=== PATIENT | female | born 1940 | race Caucasian/White ===

== ENCOUNTER 2023-04-14 13:58 | Outpatient (AMB) | payer MEDICARE, SELFPAY ==
--- NOTE | 2023-04-14 14:20 | A.SPINEOV_ITS ---
Intake Intake Visit Reasons: radiculopathy Intake Note: Ms. Bautista is here today c/o low back and leg pain. MRI done @ [facility]. 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 She is a very nice 82-year-old female who underwent an L3-4 decompression and interbody fusion with Dr. Conner in the past, who has had progressive pain in her left buttock going into her left outer calf getting significantly worse over the last 6 months to a year. She has undergone extensive conservative treatment in the form of Tylenol, physical therapy as well as cortisone injection in the left L5 foramen. She did get significant relief from that injection for about 2 weeks and then the symptoms returned. Her symptoms are aggravated with standing and walking a nd better when she sits. The pain is gone 2 point will where it is almost unbearable when she standing and walking it limits her ability to interact with her grandkids etc.. She had an MRI done at [facility] in January of 2023 showing new left L5 foraminal stenosis when compared to previous MRI from 2019. PMH: History of colon cancer with resection of the colon with primary anastomosis, history of skin cancer basal cell on the nose which was resected, she has chronic lymphocytic leukemia with an elevated white count but this is followed by Hematology-Oncology at [facility] and is just checked by serial white blood cell counts. She has never been symptomatic and it was found incidentally. History of lobular carcinoma in Situ with the lumpectomy many years ago. History of hypertension, GERD, depression/anxiety, hypothyroidism Social hx: She does not smoke Medications: Amitriptyline, melatonin, aspirin, stool softener, vitamin D3, probiotic, lisinopril, Protonix, sertraline, hydrochlorothiazide, levothyroxine, B12 injection every other month Allergies: Codeine, sulfa, IV dye, Darvon, Darvocet and hydralazine Physical exam: Strength is normal, patient is able stand on her own out of a chair, reflexes absent bilaterally. Imaging review: [facility] MRI done in January 2023 of the lumbar spine shows advanced degenerative disc disease, she has previous fusion at L3-4 with good decompr ession centrally. 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 This is stable compared to imaging done in 2020. At the L5-S1 level in the left L5 foramen there is worsening out laterally with some compression of the left L5 nerve root. Impression: 82-year-old female with a history of a previous L3-4 interbody fusion done many years ago, who has had a progressive increase in her pain over the last 6 months to a year going down her left leg into her left buttock, left lateral calf when she stands and walks. She underwent conservative treatment and did have an injection in the left L5 foramen which gave her 2 weeks of great pain relief. Her MRI shows new left L5 foraminal stenosis. Dr. Ramos and I discussed the option of a left L5 foraminotomy with the patient. We quoted success rate at 90%. All pertinent risks and benefits of surgery were discussed with the patient. Thank you for allowing us to care for your patient. The total time spent with this visit with this patient was 45 minutes reviewing history, physical exam, lumbar imaging review, and implementation of treatment plan or further diagnostic testing George Ramos MD,PhD [facility] Coding Level of Care Code New Pt Level 4 (89570) Diagnoses Lumbar radiculopathy M54.16
== END 2023-04-14 15:21 | disposition home or self-care (01) ==
PROVIDERS: Referring Provider Physical Medicine & Rehabilitation; Visit Provider Physician Assistant
DX: M54.16 Radiculopathy, lumbar region (principal)
CPT/HCPCS: 99204

== ENCOUNTER → 2023-04-14 13:58 | Outpatient (BNVA) | payer MEDICARE, SELFPAY | PROVIDERS: Visit Provider Physician Assistant | DX: M54.16 Radiculopathy, lumbar region (principal) | CPT/HCPCS: 99202 ==

== ENCOUNTER 2023-05-14 09:59 | Day surgery (SDC) | payer MEDICARE, SELFPAY ==
[2023-05-04 12:26] VITALS: BP 147/75; PULSE 78; RESP 16; O2SAT 96; BMI 28.8
--- NOTE | 2023-05-04 12:53 | P.CONAN_ITS ---
Documented by User: Brianda Jenkins NP 05/18/23 14:34 HPI - Anesthesia Eval Consult details Narrative: 82yo F for L5 Laminectomy Lumbar Decompression (Foraminotomy), 05/14/23 No recent No CP/SOB with >4 mets (very painful) CLL, obs only, no treatment. Yearly f/u with heme-onc, last seen 11/2022 GERD well controlled on ppi PONV. Good effect with scop patch for motion sickness WILBERT. No CPAP Preop labs with elevated K at 5.7. Recent previous from outside facility WNL. Repeat DOS. Reviewed with Dr Jacobo. [facility] Active Problems Active Problems: All Active Problems (Updated 05/04/23 @ 12:15 by Melina Galeano, RN) Lumbar radiculopathy (Acute) Past Medical History Medical History Anemia Arthritis Asthma Basal cell carcinoma Breast cancer CLL (chronic lymphocytic leukemia) Colon cancer Depression with anxiety Difficulty swallowing GERD (gastroesophageal reflux disease) HTN (hypertension) Hypothyroid Post-operative nausea and vomiting Sleep apnea Family History Family history of problems with anesthesia: No Surgical History Surgical History H/O colonoscopy History of back surgery History of back surgery History of breast lump/mass excision History of History of esophagogastroduodenoscopy (EGD) Hx of cataract extraction Hx of colectomy Hx of hysterectomy Hx of partial thyroidectomy Hx of resection of small bowel Hx of resection of small bowel Hx of shoulder surgery History of Problems with Anesthesia: Yes (PONV) Social History Social History Housing Other:: duplex home-side by side-one level w/basement Are you a primary morning caregiver to a significant other at home: No Do you presently have visiting nurse or other home services: No Patient Tobacco Use Status: Former Tobacco user Quit Date: age 50 Tobacco use type: Cigarette Meds Allergies Allergy/AdvReac Type Severity Reaction Status Date / Time codeine Allergy Severe severe Verified 05/14/23 10:49 nausea hydralazine Allergy Severe increased Verified 05/14/23 10:49 BP propoxyphene [From Darvon] Allergy Severe Anaphylaxis Verified 05/14/23 10:49 gabapentin Allergy Intermediate affected Verified 05/14/23 10:49 renal function Sulfa (Sulfonamide AdvReac Intermediate Nausea Verified 05/14/23 10:49 Antibiotics) Iodinated Contrast Media AdvReac Mild metal Verified 05/14/23 10:49 [IV Contrast Dye] taste in mouth Home Medications Medication Instructions Recorded Confirmed Last Taken Type amitriptyline 50 mg tablet 50 mg PO BEDTIME 05/04/23 05/04/23 Unknown History aspirin 81 mg tablet,delayed 81 mg PO DAILY 05/04/23 05/04/23 Unknown History release calcium carbonate 600 mg-vitamin 1 tab PO DAILY 05/04/23 05/04/23 Unknown History D3 5 mcg (200 unit) tablet levothyroxine 25 mcg tablet 25 mcg PO DAILY 05/04/23 05/04/23 Unknown History lisinopril 30 mg tablet 30 mg PO DAILY 05/04/23 05/04/23 Unknown History magnesium oxide 500 mg tablet 500 mg PO DAILY 05/04/23 05/04/23 Unknown History melatonin 10 mg tablet 10 mg PO BEDTIME 05/04/23 05/04/23 Unknown History meloxicam 15 mg tablet 15 mg PO DAILY 05/04/23 05/04/23 Unknown History pantoprazole 40 mg tablet,delayed 40 mg PO DAILY 05/04/23 05/04/23 Unknown History release sertraline 100 mg tablet 50 mg PO QAM 05/04/23 05/04/23 Unknown History Exam Exam Date and Time: May 04, [id number] Height,Weight and Vital Signs: Height 5 ft 4 in Weight 76.204 kg Last Vital Signs Pulse 78 05/04/23 12:26 Resp 16 05/04/23 12:26 BP 147/75 H 05/04/23 12:26 Pulse Ox 96 05/04/23 12:26 O2 Del Method Room Air 05/04/23 12:26 Pertinent Lab Results Pertinent Lab Results: Lab Results 05/04/23 05/04/23 Range/Units 13:14 13:14 WBC 12.6 H (4.8-10.8) X10*3/uL RBC 4.30 (4.20-5.50) X10*6/uL Hgb 12.6 (12.0-16.0) g/dl Hct 40.4 (37.0-47.0) % MCV 94.0 (80.0-98.0) fL MCH 29.3 (27.0-33.0) pg MCHC 31.2 (31.0-35.0) g/dl RDW 12.5 (11.0-16.0) % Plt Count 268 (160-400) X10*3/uL MPV 10.1 (9.4-12.3) fL Absolute Nucleated RBC 0.000 (0.0-0.012) X10*3/uL Nucleated RBC % (auto) 0.0 (0.0-0.2) /100WBC Sodium 141 (135-145) mmol/L Potassium 5.7 H (3.3-5.1) mmol/L Chloride 107 (96-108) mmol/L Carbon Dioxide 26 (22-29) mmol/L Anion Gap 14 (12-20) BUN 29 H (9-16) mg/dL Creatinine 1.33 (0.5-1.4) mg/dL Estim Creat Clear Calc 32.0 Estimated GFR 38 Random Glucose 88 (60-115) mg/dL Calcium 9.2 (8.4-10.2) mg/dL Narrative Narrative: EKG 09/2022 NSR @ 09/2022 LAD Abn EKG No significant change from 09/2019 ECHO 2019 LV size is nml LV wall thickness is mildly increased LV systolic function is vigorous LVEF is 65-70% No RWMA Nml diastolic function RV nml in size and function PASP wnl Biatrial size is nml No hemodynamically significant valve disease Unchanged from 2008 Exercise stress 2019 WNL Airway Mallampati Class: II TM Dist: >3cm Neck ROM: Full Denture: Upper Loose/Missing/Broken Teeth: Yes (bottom molars pulled) Heart: RRR Lungs: CTAB Assessment and Plan Assessment Anesthesia Assessment: Anesthesia Plan Discussed and PAT Visit Final Anesthetic Review Family History of Problems with Anesthesia: No History of Problems with Anesthesia: Yes (PONV) Documented by User: Chase Arnold MD 05/20/23 13:04 [facility] Past Medical History Medical History Anemia Arthritis Asthma Basal cell carcinoma Breast cancer CLL (chronic lymphocytic leukemia) Colon cancer Depression with anxiety Difficulty swallowing GERD (gastroesophageal reflux disease) HTN (hypertension) Hypothyroid Post-operative nausea and vomiting Sleep apnea Surgical History Surgical History H/O colonoscopy History of back surgery History of back surgery History of breast lump/mass excision History of History of esophagogastroduodenoscopy (EGD) Hx of cataract extraction Hx of colectomy Hx of hysterectomy Hx of partial thyroidectomy Hx of resection of small bowel Hx of resection of small bowel Hx of shoulder surgery Social History Social History Housing Other:: duplex home-side by side-one level w/basement Are you a primary morning caregiver to a significant other at home: No Do you presently have visiting nurse or other home services: No Patient Tobacco Use Status: Former Tobacco user Quit Date: age 50 Tobacco use type: Cigarette Meds Allergies Allergy/AdvReac Type Severity Reaction Status Date / Time codeine Allergy Severe severe Verified 05/14/23 10:49 nausea hydralazine Allergy Severe increased Verified 05/14/23 10:49 BP propoxyphene [From Darvon] Allergy Severe Anaphylaxis Verified 05/14/23 10:49 gabapentin Allergy Intermediate affected Verified 05/14/23 10:49 renal function Sulfa (Sulfonamide AdvReac Intermediate Nausea Verified 05/14/23 10:49 Antibiotics) Iodinated Contrast Media AdvReac Mild metal Verified 05/14/23 10:49 [IV Contrast Dye] taste in mouth Home Medications Medication Instructions Recorded Confirmed Last Taken Type amitriptyline 50 mg tablet 50 mg PO BEDTIME 05/04/23 05/04/23 Unknown History aspirin 81 mg tablet,delayed 81 mg PO DAILY 05/04/23 05/04/23 Unknown History release calcium carbonate 600 mg-vitamin 1 tab PO DAILY 05/04/23 05/04/23 Unknown History D3 5 mcg (200 unit) tablet levothyroxine 25 mcg tablet 25 mcg PO DAILY 05/04/23 05/04/23 Unknown History lisinopril 30 mg tablet 30 mg PO DAILY 05/04/23 05/04/23 Unknown History magnesium oxide 500 mg tablet 500 mg PO DAILY 05/04/23 05/04/23 Unknown History melatonin 10 mg tablet 10 mg PO BEDTIME 05/04/23 05/04/23 Unknown History meloxicam 15 mg tablet 15 mg PO DAILY 05/04/23 05/04/23 Unknown History pantoprazole 40 mg tablet,delayed 40 mg PO DAILY 05/04/23 05/04/23 Unknown History release sertraline 100 mg tablet 50 mg PO QAM 05/04/23 05/04/23 Unknown History Assessment and Plan Final Anesthetic Review NPO: Yes ASA Class: III Final Preanesthetic Review: No Changes in Pt Med Stat, Meds/Allgs Chart Reviewed, Consent Obtained/Reviewed and Anes Risks/Benef Reviewed Patient Risk: Intermediate Procedure Risk: Intermediate Anesthetic Plan Anesthetic Plan: GA Disposition: Standard PACU
[2023-05-04 14:21] LABS: Hematocrit 40.4 % (37.0-47.0); Hemoglobin 12.6 g/dl (12.0-16.0); Mean Corpuscular HGB Conc 31.2 g/dl (31.0-35.0); Mean Corpuscular Hemoglobin 29.3 pg (27.0-33.0); Mean Platelet Volume 10.1 fL (9.4-12.3); Platelet Count 268 X10*3/uL (160-400); Red Cell Distribution Width 12.5 % (11.0-16.0); White Blood Count 12.6 X10*3/uL (4.8-10.8)
[2023-05-05 02:36] LABS: Anion Gap 14 (12-20); Blood Urea Nitrogen 29 mg/dL (9-16); Calcium 9.2 mg/dL (8.4-10.2); Carbon Dioxide 26 mmol/L (22-29); Chloride 107 mmol/L (96-108); Estimated Glomerular Filt Rate 38; Glucose Random 88 mg/dL (60-115); Potassium 5.7 mmol/L (3.3-5.1); Sodium 141 mmol/L (135-145)
[2023-05-14] VITALS (7 sets, daily range): BP systolic 156–178; BP diastolic 52–65; PULSE 75–95; RESP 12–18; TEMP 36.3–36.4; O2SAT 3–98
--- NOTE | ~2023-05-14 | FL_ITS ---
EXAMINATION: XR FLUOROSCOPY WITH IMAGES CLINICAL INFORMATION: L5 laminectomy decompression left COMPARISON: None available. TECHNIQUE: SHA: 0.0 MINUTES TOTAL: 2.43 MGY DAP: 0.578 GYCM2 IMAGES: 1 DR. ODONNELL / ANTWON FINDINGS: Single lateral interoperative image demonstrates posterior surgical marker placement projecting over the posterior elements at L5. There is posterior fusion hardware at L3-L4 FL/FL guidance in OR IMPRESSION: Fluoroscopy guidance lumbar spine surgery.
--- NOTE | 2023-05-14 07:07 | MHC.SHP ---
Pre-Procedural Eval Section A Date of Service: 05/14/23 The patient is an INPATIENT: No Changes since office visit: No Cold of Flu in the past 2 weeks, No New Medical Problems, No Changes in Medication and No Patient answered all questions The History & Physical has been completed within 30 days and I have reviewed it.: No Section B Chief Complaint: Radiculopathy, lumbar region Allergies: Allergies Allergy/AdvReac Type Severity Reaction Status Date / Time codeine Allergy Severe severe Verified 05/04/23 12:20 nausea hydralazine Allergy Severe increased Verified 05/04/23 12:20 BP propoxyphene [From Darvon] Allergy Severe Anaphylaxis Verified 05/04/23 12:20 gabapentin Allergy Intermediate affected Verified 05/04/23 12:20 renal function Sulfa (Sulfonamide AdvReac Intermediate Nausea Verified 05/04/23 12:20 Antibiotics) Iodinated Contrast Media AdvReac Mild metal Verified 05/04/23 12:20 [IV Contrast Dye] taste in mouth Review of Systems Sugical H&P ROS: Negative: Constitution, Cardiovascular, Respiratory, Neurological, Psychiatric, Hem-Onc, Allergic/Immunologic, Gastrointestinal, Genitourinary, Musculoskeletal, Integumentary, Endocrine and Eyes/Ears/Nose/Throat Exam Surgical H&P Exam: Not Evaluated: HEENT, Not Evaluated: Heart, Not Evaluated: Lungs, Not Evaluated: Extremities, Not Evaluated: Abdomen, Not Evaluated: Skin and Not Evaluated: Neurological Plan Diagnosis/Plan: Unchanged I have reviewed the history and physical and performed a pertinent physical examination on my patient. No changes have occurred unless specified. left L5 foraminotomy Time Spent With Patient Time: Total time managing care of this patient today _10___ minutes.
--- NOTE | 2023-05-14 10:21 | PC.NURSE ---
dr. wagoner aware that gabapentin 300 mg po preop was not ordered for this patient. okay to proceed without it per doctor.
[2023-05-14] MEDS: Lactated Ringers 1,000 ML 100 ML IVCONT (10:42)
--- NOTE | 2023-05-14 10:50 | PC.NURSE ---
gabapentin not ordered due to affecting renal function in past.
[2023-05-14 11:05] LABS: Anion Gap 16 (12-20); Carbon Dioxide 25 mmol/L (22-29); Chloride 105 mmol/L (96-108); Sodium 141 mmol/L (135-145)
[2023-05-14] MEDS: Scopolamine 1.5 MG PATCH.TD.3 TRANSDERMA (11:09)
[2023-05-14] MEDS: methocarbamoL 750 MG TABLET PO (11:09)
--- NOTE | 2023-05-14 11:33 | PC.NURSE ---
dr. wagoner aware that patient has a schatzki's ring and takes her pills with apple sauce. patient stated that she would not be able to swallow robaxin. dr. wagoner okay with it. Mar from pharmacy came to [facility] to pick it up due to [facility] not opening for the return.
--- NOTE | 2023-05-14 12:47 | PM.DS ---
DS: Providers Provider Date of Service: 05/14/23 Date of discharge: 05/14/23 Primary care physician: Leigh Alfred NP Admitting clinician: Macario Ramos DS: Diagnosis Discharge Diagnosis (1) Lumbar radiculopathy: Status: Acute DS: Summary Time Spent with Patient Time attestation: Total time managing care of this patient today ____ minutes. Discharge coordination time: Less than 30 minutes Quality: Safe Use of Opioids Does Pt have an Active Cancer Diagnosis on the Problem List?: No Quality: Stroke Does the patient have a stroke diagnosis?: No Physical Exam Vital Signs: Vital Signs: Last Vital Signs Temp 97.6 F 05/14/23 10:49 Pulse 75 05/14/23 10:49 Resp 18 05/14/23 10:49 BP 158/65 H 05/14/23 10:49 Pulse Ox 96 05/14/23 10:49 O2 Del Method Room Air 05/14/23 10:49 BMI result Body Mass Index 28.8 DS: Data Data Completed and Pending Labs on day of discharge: Laboratory Results - last 24 hr 05/14/23 10:18 Sodium 141 Potassium 5.0 Chloride 105 Carbon Dioxide 25 Anion Gap 16 Discharge Plan Discharge Patient Disposition: Home, Self-Care Referrals: Leigh Alfred NP [Primary Care Provider] - 1 Week Discharge Medications: No Action tramadol 50 mg tablet 50 mg PO Q6H PRN (Reason: moderate-severe pain) Qty: 30 0RF meloxicam 15 mg tablet 15 mg PO DAILY sertraline 100 mg tablet 50 mg PO QAM calcium carbonate-vitamin D3 [Calcium + D] 600 mg-5 mcg (200 unit) Tablet 1 tab PO DAILY aspirin [Aspirin Low-Strength] 81 mg Tablet,Delayed Release (Dr/Ec) 81 mg PO DAILY amitriptyline 50 mg tablet 50 mg PO BEDTIME levothyroxine 25 mcg tablet 25 mcg PO DAILY pantoprazole 40 mg tablet,delayed release (DR/EC) 40 mg PO DAILY magnesium oxide 500 mg Tablet 500 mg PO DAILY lisinopril 30 mg tablet 30 mg PO DAILY melatonin 10 mg Tablet 10 mg PO BEDTIME methylprednisolone 4 mg tablets,dose pack 4 mg PO DAILY Qty: 21 0RF Rx Instructions: take as directed on package lorazepam [Ativan] 0.5 mg tablet 0.5 mg PO ONCE PRN (Reason: anxiety) Qty: 2 0RF Rx Instructions: take one pill 30 prior to mri and second pill upon getting into mri Discharge Orders: Discharge Order (Routine); Ordered 05/14/23 Ordered By: George Javier Diet: Advance to usual diet Activity on Discharge: As tolerated Activity Restrictions/Additional Instructions: After your spinal surgery we ask you to observe the following restrictions/guidelines: Activity: It is normal to feel some discomfort as you increase your activity, but that will improve with time. We ask you avoid heavy lifting or acitivities that cause pain. As a general rule, 8lbs is a safe limit for lifting right after surgery. Walk as much as you feel comfortable but not to exhaustion. You will feel extra tired the first few days after surgery. Stay well hydrated. It is OK to walk up and down stairs You may return to driving when you are off narcotics (such as vicodin, oxycodone, dilaudid, etc), and you are back to normal functional capacity. If you have any concerns please check with office before driving. Return to work is specific to each patient and each surgery, so please speak with your doctor/PA at first follow up. Please bring paperwork such as FMLA at that time if you need it filled out. Medications: For optimum pain control, it is best to start with a combination of 500 mg of Tylenol every 4 hours with 600 mg of Motrin every 8 hours, and use narcotics as needed in between for breakthrough pain. We will give you a short supply of narcotics after surgery (usually one weeks worth). If you need more please call the office but do not use more than prescribed. You will need to give our office 48 hours notice if you need narcotics refilled and we do not fill narcotics on weekends or evenings. If you are on a narcotic, it is a good idea to take a stool softener such as colace or senna to avoid constipation If you take blood thinner such as aspirin, Plavix, Coumadin, Effient, Eliquis etc for conditions such as Afib, DVT, Pulmonary embolus, coronary disease, stents etc please speak with your surgeon about specific details as to when you can resume these medications. You can resume NSAIDs on post op day 1 (eg: Motrin, Naproxen, etc). Follow up: Please call the office, , after surgery to arrange a 3 week follow up for wound check. Wound Care: You may remove your dressing on the first day after surgery. You may leave open to air. Please do not remove the steri strips underneath. they will fall off on their own in one week. IT IS NORMAL FOR THE WOUND TO OOZE OR BE BLOODY FOR A FEW DAYS AFTER SURGERY. IF THIS HAPPENS JUST PLACE NEW DRESSING OVER IT TO AVOID STAINING CLOTHES. You may shower on post op day # 1 We ask that you do not let the water soak the wound. If it does get wet, just towel dry lightly. Please do not scrub your incision or place any type of chemical/ointment on the wound. No tub baths, pools or jacuzzis for one month. If you have any leaking or redness from your wound, or fevers, please call office Discharge Date/Time: 05/14/23 14:20
--- NOTE | 2023-05-14 12:49 | P.OP_ITS ---
Operative Note Operative Note Date of Service: 05/14/23 Narrative: Preoperative Diagnosis: Spinal stenosis/lateral recess stenosis/neural foraminal stenosis Operation: Left L5 Laminotomy, Partial facetectomy and foraminotomy with use of microscope Consent Informed Consent was obtained for this operation. I have explained the nature, purpose and benefits of the operation. I have discussed the risks and benefit of the operation including possible complications or adverse events with patient/family. Alternative(s) were discussed with the patient with their relative benefits and risks as well as the consequences of not accepting the operation were included in obtaining consent. Surgeon: KIRILL ODONNELL MD, PHD Procedure Assisted By: George SANCHEZ Description of Procedure This patient is suffering from a left L5 radiculopathy responding to an epidural steroid injection. The patient was offered a decompression of the L5 nerve root. The procedure complications were explained. The patient was consented. The patient was brought to the operating room and endotracheally intubated. The patient was turned in prone position on the Tejas frame. Prep and drape was done followed by timeout. Physician assistant professor of radiology provided access. A mid lumbar incision was made followed by release of the paravertebral muscle on the left side to expose the L5 lamina and facet joint. An intraoperative x-ray was obtained to confirm the correct level. The microscope was brought in. I took over the procedure. The high-speed drill was used to do a L5 laminotomy. #2 Kerrison was used to further remove the lamina towards the L5 foramen. With a nerve hook the medial wall of the L5 pedicle was palpated as well as the beginning of the L5 foramen. The facet joint was partially drilled down after which with a #2 Kerrison a foraminotomy was done. Finally a foraminotomy Kerrison was used to complete the foraminotomy. A long the nerve root could be easily passed, a sign of relief of the neuroforaminal stenosis and decompression of the nerve root . The microscope was removed. Hemostasis was done. Incision was closed in 2 layers. Steri-Strips were used to approximate incision. An OpSite with Tegaderm was used to cover the incision. All sponge needle counts were correct. Patient was extubated and transported in stable is to recovery room. Anesthesia: General Estimated Blood Loss (ml): Minimal Duration of Surgery: Under 60 Minutes Postoperative Plan: Discharge to home
[2023-05-14] MEDS: ondansetron HCL 4 MG/2 ML VIAL IVPUSH (13:31)
== END 2023-05-14 14:20 | disposition home or self-care (01) ==
PROVIDERS: Nurse Practitioner; PCP Nurse Practitioner Gerontology; Visit Provider Neurological Surgery
PROC: (CPT 63047; principal; 2023-05-14 12:30)
DX: M54.16 Radiculopathy, lumbar region (principal); M48.061 Spinal stenosis, lumbar region without neurogenic claudication; I10 Essential (primary) hypertension; C91.10 Chronic lymphocytic leukemia of B-cell type not having achieved remission; G47.33 Obstructive sleep apnea (adult) (pediatric); K21.9 Gastro-esophageal reflux disease without esophagitis; D64.9 Anemia, unspecified; J45.909 Unspecified asthma, uncomplicated; F41.8 Other specified anxiety disorders; Z91.89 Other specified personal risk factors, not elsewhere classified; Z85.3 Personal history of malignant neoplasm of breast; Z85.038 Personal history of other malignant neoplasm of large intestine; Z90.49 Acquired absence of other specified parts of digestive tract; Z88.2 Allergy status to sulfonamides; Z88.5 Allergy status to narcotic agent; Z88.8 Allergy status to other drugs, medicaments and biological substances; Z91.041 Radiographic dye allergy status; Z87.891 Personal history of nicotine dependence; Z79.82 Long term (current) use of aspirin; Z79.899 Other long term (current) drug therapy
CPT/HCPCS: 63047; 36415; 80048; 80051; 85027; J0131; J0690; J2371; J2405; J3010

== ENCOUNTER → 2023-05-14 09:59 | Outpatient (BNV) | payer MEDICARE, SELFPAY | PROVIDERS: PCP Nurse Practitioner Gerontology; Visit Provider Neurological Surgery | DX: M54.16 Radiculopathy, lumbar region (principal) | CPT/HCPCS: 63047; 99499 ==

== ENCOUNTER 2023-06-05 14:23 | Outpatient (AMB) | payer MEDICARE, SELFPAY ==
--- NOTE | 2023-06-05 14:30 | HO.SPINEOV ---
Intake Intake Visit Reasons: 1st post op Intake Note: Jose is here today for her 1st post-op visit. Documentation Writer Required: No Allergies codeine Allergy (Severe, Verified 05/14/23 10:49) severe nausea hydralazine Allergy (Severe, Verified 05/14/23 10:49) increased BP propoxyphene [From Darvon] Allergy (Severe, Verified 05/14/23 10:49) Anaphylaxis gabapentin Allergy (Intermediate, Verified 05/14/23 10:49) affected renal function Sulfa (Sulfonamide Antibiotics) Adverse Reaction (Intermediate, Verified 05/14/23 10:49) Nausea Iodinated Contrast Media [IV Contrast Dye] Adverse Reaction (Mild, Verified 05/14/23 10:49) metal taste in mouth Assessment & Plan Assessment & Plan (1) S/P spinal surgery: Code(s): Z98.890 - Other specified postprocedural states Plan Procedure: Left L5 Laminotomy Reena comes in today accompanied by her daughter for her 1st postoperative visit. She reports she does feel better than she did preoperatively, but states she is concerned because she had significant relief the first few days post-op, and has now returned to significant pain on her left posterior leg. She states it does feel different that her previous left leg pain, and we discussed the possibility of it being inflammation related due to the surgical procedure. 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 She is completing a large majority of his ADLs at home. She does report good relief of pain with pain medication. I believe she will just need additional time to heal and allow her inflammation to go down for her surgery to be of maximum benefit. She was encouraged that if she does continue to have the same symptoms by the next time she comes in for 2nd postoperative visit we can review her x-rays and consider having a repeat MRI done. Sensation remains normal and intact. Posterior incision site is clean and well healing. No active sanguineous drainage. Area is dry. We will follow-up with the patient in 6 weeks for her 2nd postoperative visit. At that time we will get x-rays to review with the patient. Total amount of time spent in this visit was 20 minutes in discussion of symptoms, intraoperative imaging results and subsequent plan of care. Sudhir Ramos MD,PhD [facility] Orders: Orders XR lumbar spine 4V min 06/26/23 Z98.890 - Other specified postprocedural states Coding Level of Care Code Est Pt Level 3 (72842) Diagnoses S/P spinal surgery Z98.890
== END 2023-06-05 15:20 | disposition home or self-care (01) ==
PROVIDERS: PCP Nurse Practitioner Gerontology; Visit Provider Physician Assistant
DX: Z98.890 Other specified postprocedural states (principal)
CPT/HCPCS: 99024

== ENCOUNTER → 2023-06-05 14:23 | Outpatient (BNVA) | payer MEDICARE, SELFPAY | PROVIDERS: PCP Nurse Practitioner Gerontology; Visit Provider Physician Assistant | DX: Z48.89 Encounter for other specified surgical aftercare (principal) | CPT/HCPCS: 99212 ==

== ENCOUNTER 2023-06-26 08:07 | Outpatient (REF) | payer MEDICARE, SELFPAY | END 2023-06-26 08:08 | disposition home or self-care (01) | LOC: HO.HOSX 08:07 | PROVIDERS: Visit Provider Physician Assistant | DX: Z13.89 Encounter for screening for other disorder (principal) ==

== ENCOUNTER 2023-07-10 14:45 | Outpatient (AMB) | payer MEDICARE, SELFPAY ==
--- NOTE | 2023-07-10 14:58 | HO.SPINEOV ---
Intake Intake Visit Reasons: back pain Intake Note: Ms. Bautista is here today c/o back pain same as before surgery. Traffic Rate Computer Required: No Allergies codeine Allergy (Severe, Verified 05/14/23 10:49) severe nausea hydralazine Allergy (Severe, Verified 05/14/23 10:49) increased BP propoxyphene [From Darvon] Allergy (Severe, Verified 05/14/23 10:49) Anaphylaxis gabapentin Allergy (Intermediate, Verified 05/14/23 10:49) affected renal function Sulfa (Sulfonamide Antibiotics) Adverse Reaction (Intermediate, Verified 05/14/23 10:49) Nausea Iodinated Contrast Media [IV Contrast Dye] Adverse Reaction (Mild, Verified 05/14/23 10:49) metal taste in mouth Assessment & Plan Assessment & Plan (1) Lumbar radiculopathy: Code(s): M54.16 - Radiculopathy, lumbar region Plan Mrs Bautista is here for her 2nd postoperative visit. Few months ago we did a left L5 foraminotomy on her. She had tremendous relief for 2 or 3 days. It was miraculously relief of the pain and she could not have been more happy. Unfortunately over time the pain has returned. Specifically, it is in her left buttock, and into her left lower calf into her ankle and foot. She has continued to work at her job and continued to push on with life but her days are filled with absolute agony. She has no specific weakness in the foot. We talked about the fact that sometimes nerves have lingering damage that results in chronic nerve pain. We also talked about the fact that sometimes there is residual compression and the space that we created at the time of surgery can recur. Sometimes that requires more surgery to fix. She is taking [id number] medications trying to help with the pain but nothing seems to make her comfortable. I am going to order repeat MRI of the lumbar spine with without marysol 0. She would like to do this at [facility]. She also reports that she had a nerve conduction test at some point along the way before surgery and I would like to see the results of this. It was done at the [facility] in [place]. I will call her with results of the MRI. I called her in Ativan for anxiety in the MRI machine. I also called her in a Medrol Dosepak because she has an upcoming vacation I would like to take it during that time. George Ramos MD, PhD [facility] Orders: Orders MR lumbar spine wo/w con Today M54.16 - Radiculopathy, lumbar region Medications: New methylprednisolone take as directed on package 4 mg PO DAILY 21 ea 0RF lorazepam (Ativan) take one pill 30 prior to mri and second pill upon getting into mri 0.5 mg PO ONCE PRN 2 tabs 0RF anxiety Coding Level of Care Code Global (38282) Diagnoses Lumbar radiculopathy M54.16
== END 2023-07-10 15:08 | disposition home or self-care (01) ==
PROVIDERS: PCP Nurse Practitioner Gerontology; Visit Provider Physician Assistant
DX: M54.16 Radiculopathy, lumbar region (principal)
CPT/HCPCS: 99024

== ENCOUNTER → 2023-07-10 14:45 | Outpatient (BNVA) | payer MEDICARE, SELFPAY | PROVIDERS: PCP Nurse Practitioner Gerontology; Visit Provider Physician Assistant ==

== ENCOUNTER → 2023-09-24 13:16 | Outpatient (BNV) | payer MEDICARE, MEDICAID, SELFPAY | PROVIDERS: Admitting Provider Neurological Surgery; PCP Nurse Practitioner Gerontology; Visit Provider Internal Medicine Cardiovascular Disease | DX: R94.31 Abnormal electrocardiogram [ECG] [EKG] (principal) | CPT/HCPCS: 93010 ==

== ENCOUNTER 2023-10-08 11:38 | Day surgery (SDC) | payer MEDICARE, OTHER, SELFPAY ==
[2023-09-24 12:36] VITALS: BP 143/65; PULSE 96; RESP 16; O2SAT 95; BMI 28.9
--- NOTE | 2023-09-24 12:58 | HO.ANESPROP2 ---
Documented by User: Brianda Jenkins NP 10/06/23 12:10 HPI - Anesthesia Eval Consult details Narrative: 83yo F for Left L5-S1 Facetectomy with Foraminotomy and Pedicle Screws, 10/08/23 s/p L5 Laminectomy Lumbar Decompression (Foraminotomy), 05/14/23, GA-ETT 7 No recent illness No CP/SOB with >4 mets (very painful) CLL, obs only, no treatment. Yearly f/u with heme-onc, last seen 11/2022 GERD well controlled on ppi PONV. Good effect with scop patch for motion sickness WILBERT. No CPAP in years Previously elevated K. Normalized prior to last spine surgery. PMFSH Active Problems Active Problems: All Active Problems (Updated 05/04/23 @ 12:15 by Melina Galeano RN) S/P spinal surgery (Acute) Lumbar radiculopathy (Acute) Past Medical History Medical History Post-operative nausea and vomiting Arthritis Anemia Difficulty swallowing Sleep apnea Asthma Depression with anxiety Hypothyroid GERD (gastroesophageal reflux disease) HTN (hypertension) Breast cancer CLL (chronic lymphocytic leukemia) Basal cell carcinoma Colon cancer Family History Family history of problems with anesthesia: No Surgical History Surgical History Hx of shoulder surgery Hx of cataract extraction Hx of resection of small bowel Hx of resection of small bowel History of Hx of hysterectomy History of back surgery History of esophagogastroduodenoscopy (EGD) H/O colonoscopy Hx of partial thyroidectomy History of breast lump/mass excision Hx of colectomy History of back surgery History of Problems with Anesthesia: Yes (PONV) Social History Social History Housing Other:: duplex home-side by side-one level w/basement Are you a primary healthcare economics manager to a significant other at home: No Do you presently have visiting nurse or other home services: No Comment: aware of trip hazard Patient Tobacco Use Status: Former Tobacco user Quit Date: Tobacco use type: Cigarette Meds Allergies Allergy/AdvReac Type Severity Reaction Status Date / Time codeine Allergy Severe severe Verified 10/08/23 11:52 nausea hydralazine Allergy Severe increased Verified 10/08/23 11:52 BP propoxyphene [From Darvon] Allergy Severe Anaphylaxis Verified 10/08/23 11:52 gabapentin Allergy Intermediate affected Verified 10/08/23 11:52 renal function Sulfa (Sulfonamide AdvReac Intermediate Nausea Verified 10/08/23 11:52 Antibiotics) Iodinated Contrast Media AdvReac Mild metal Verified 10/08/23 11:52 [IV Contrast Dye] taste in mouth Home Medications Medication Instructions Recorded Confirmed Last Taken Type aspirin 81 mg tablet,delayed 81 mg PO DAILY 05/04/23 09/23/23 Unknown History release calcium carbonate 600 mg-vitamin 1 tab PO DAILY 05/04/23 09/23/23 Unknown History D3 5 mcg (200 unit) tablet levothyroxine 25 mcg tablet 25 mcg PO DAILY 05/04/23 09/23/23 Unknown History magnesium oxide 500 mg tablet 500 mg PO DAILY 05/04/23 09/23/23 Unknown History melatonin 10 mg tablet 10 mg PO BEDTIME 05/04/23 09/23/23 Unknown History pantoprazole 40 mg tablet,delayed 40 mg PO DAILY 05/04/23 09/23/23 Unknown History release sertraline 100 mg tablet 50 mg PO QAM 05/04/23 09/23/23 Unknown History Probiotic 09/23/23 Unknown History Stool Softener 09/23/23 Unknown History amitriptyline 10 mg tablet 10 mg PO BEDTIME 09/23/23 09/23/23 Unknown History cholecalciferol (vitamin D3) 50 50 mcg PO DAILY 09/23/23 09/23/23 Unknown History mcg (2,000 unit) tablet (Vitamin D3) cyanocobalamin (vitamin B-12) 1,000 mcg IM Q8W 09/23/23 09/23/23 Unknown History 1,000 mcg/mL injection kit hydrochlorothiazide 50 mg tablet 50 mg PO DAILY 09/23/23 09/23/23 Unknown History lisinopril 30 mg tablet 30 mg PO DAILY 09/24/23 09/24/23 Unknown History Exam Height,Weight and Vital Signs: Height 5 ft 3 in Weight 73.936 kg Last Vital Signs Pulse 96 09/24/23 12:36 Resp 16 09/24/23 12:36 BP 143/65 H 09/24/23 12:36 Pulse Ox 95 09/24/23 12:36 O2 Del Method Room Air 09/24/23 12:36 Pertinent Lab Results Pertinent Lab Results: Lab Results 09/24/23 Range/Units 13:21 WBC 12.2 H (4.8-10.8) X10*3/uL RBC 4.76 (4.20-5.50) X10*6/uL Hgb 14.1 (12.0-16.0) g/dl Hct 43.6 (37.0-47.0) % MCV 91.6 (80.0-98.0) fL MCH 29.6 (27.0-33.0) pg MCHC 32.3 (31.0-35.0) g/dl RDW 12.6 (11.0-16.0) % Plt Count 250 (160-400) X10*3/uL MPV 10.3 (9.4-12.3) fL Absolute Nucleated RBC 0.000 (0.0-0.012) X10*3/uL Nucleated RBC % (auto) 0.0 (0.0-0.2) /100WBC Sodium 143 (135-145) mmol/L Potassium 4.8 (3.3-5.1) mmol/L Chloride 103 (96-108) mmol/L Carbon Dioxide 28 (22-29) mmol/L Anion Gap 15 (12-20) BUN 33 H (9-16) mg/dL Creatinine 1.20 (0.5-1.4) mg/dL Estim Creat Clear Calc 33.6 Estimated GFR 43 Random Glucose 100 (60-115) mg/dL Calcium 10.0 D (8.4-10.2) mg/dL Narrative Narrative: EKG 09/2023 Vent. Rate : 091 BPM Atrial Rate : 091 BPM P-R Int : 166 ms QRS Dur : 088 ms QT Int : 362 ms P-R-T Axes : 073 -54 072 degrees QTc Int : 445 ms Normal sinus rhythm Left axis deviation Abnormal ECG No previous ECGs available Airway Mallampati Class: II TM Dist: >3cm Neck ROM: Full Denture: Upper Loose/Missing/Broken Teeth: Yes (bottom molars pulled) Heart: RRR Lungs: CTAB Assessment and Plan Assessment Anesthesia Assessment: Anesthesia Plan Discussed and PAT Visit Final Anesthetic Review Family History of Problems with Anesthesia: No History of Problems with Anesthesia: Yes (PONV) Documented by User: Candelaria Jacobo MD 10/08/23 12:21 PMFSH Active Problems Active Problems: All Active Problems (Updated 10/08/23 @ 12:00 by Candelaria Jacobo MD) S/P spinal surgery (Acute)04/2023 Lumbar radiculopathy (Acute) Past Medical History Medical History Post-operative nausea and vomiting Arthritis Anemia Difficulty swallowing Sleep apnea Asthma Depression with anxiety Hypothyroid GERD (gastroesophageal reflux disease) HTN (hypertension) Breast cancer CLL (chronic lymphocytic leukemia) Basal cell carcinoma Colon cancer Surgical History Surgical History Hx of shoulder surgery Hx of cataract extraction Hx of resection of small bowel Hx of resection of small bowel History of Hx of hysterectomy History of back surgery History of esophagogastroduodenoscopy (EGD) H/O colonoscopy Hx of partial thyroidectomy History of breast lump/mass excision Hx of colectomy History of back surgery History of Problems with Anesthesia: Yes (PONV) Social History Social History Housing Other:: duplex home-side by side-one level w/basement Are you a primary healthcare economics manager to a significant other at home: No Do you presently have visiting nurse or other home services: No Comment: aware of trip hazard Patient Tobacco Use Status: Former Tobacco user Quit Date: Tobacco use type: Cigarette Meds Allergies Allergy/AdvReac Type Severity Reaction Status Date / Time codeine Allergy Severe severe Verified 10/08/23 11:52 nausea hydralazine Allergy Severe increased Verified 10/08/23 11:52 BP propoxyphene [From Darvon] Allergy Severe Anaphylaxis Verified 10/08/23 11:52 gabapentin Allergy Intermediate affected Verified 10/08/23 11:52 renal function Sulfa (Sulfonamide AdvReac Intermediate Nausea Verified 10/08/23 11:52 Antibiotics) Iodinated Contrast Media AdvReac Mild metal Verified 10/08/23 11:52 [IV Contrast Dye] taste in mouth Home Medications Medication Instructions Recorded Confirmed Last Taken Type aspirin 81 mg tablet,delayed 81 mg PO DAILY 05/04/23 09/23/23 Unknown History release calcium carbonate 600 mg-vitamin 1 tab PO DAILY 05/04/23 09/23/23 Unknown History D3 5 mcg (200 unit) tablet levothyroxine 25 mcg tablet 25 mcg PO DAILY 05/04/23 09/23/23 Unknown History magnesium oxide 500 mg tablet 500 mg PO DAILY 05/04/23 09/23/23 Unknown History melatonin 10 mg tablet 10 mg PO BEDTIME 05/04/23 09/23/23 Unknown History pantoprazole 40 mg tablet,delayed 40 mg PO DAILY 05/04/23 09/23/23 Unknown History release sertraline 100 mg tablet 50 mg PO QAM 05/04/23 09/23/23 Unknown History Probiotic 09/23/23 Unknown History Stool Softener 09/23/23 Unknown History amitriptyline 10 mg tablet 10 mg PO BEDTIME 09/23/23 09/23/23 Unknown History cholecalciferol (vitamin D3) 50 50 mcg PO DAILY 09/23/23 09/23/23 Unknown History mcg (2,000 unit) tablet (Vitamin D3) cyanocobalamin (vitamin B-12) 1,000 mcg IM Q8W 09/23/23 09/23/23 Unknown History 1,000 mcg/mL injection kit hydrochlorothiazide 50 mg tablet 50 mg PO DAILY 09/23/23 09/23/23 Unknown History lisinopril 30 mg tablet 30 mg PO DAILY 09/24/23 09/24/23 Unknown History Exam Height,Weight and Vital Signs: Height 5 ft 3 in Weight 73.936 kg Last Vital Signs Pulse 96 09/24/23 12:36 Resp 16 09/24/23 12:36 BP 143/65 H 09/24/23 12:36 Pulse Ox 95 09/24/23 12:36 O2 Del Method Room Air 09/24/23 12:36 Vital Signs Temp Pulse Resp BP Pulse Ox O2 Del Method 10/08/23 12:02 97.3 F 85 16 179/63 H 98 Room Air Airway Mallampati Class: II TM Dist: >3cm Neck ROM: Full Denture: Upper Loose/Missing/Broken Teeth: Yes (Bottom molars extracted) Heart: RRR Lungs: CTAB Assessment and Plan Assessment Anesthesia Assessment: Anesthesia Plan Discussed, PAT Visit and Chart Reviewed Final Anesthetic Review History of Problems with Anesthesia: Yes (PONV) NPO: Yes ASA Class: III Final Preanesthetic Review: No Changes in Pt Med Stat, Meds/Allgs Chart Reviewed, Consent Obtained/Reviewed and Anes Risks/Benef Reviewed Patient Risk: Intermediate Procedure Risk: Intermediate Assessment/Block/Sedation in SS: Assess/Block/Sedation-SS Anesthetic Plan Anesthetic Plan: GA Disposition: Standard PACU
[2023-09-24 13:51] LABS: Sodium 143 mmol/L (135-145)
[2023-09-24 14:47] LABS: Anion Gap 15 (12-20); Blood Urea Nitrogen 33 mg/dL (9-16); Carbon Dioxide 28 mmol/L (22-29); Chloride 103 mmol/L (96-108); Creatinine Clr Calc Pharmacy 33.6; Estimated Glomerular Filt Rate 43; Glucose Random 100 mg/dL (60-115); Potassium 4.8 mmol/L (3.3-5.1)
[2023-10-08] VITALS (7 sets, daily range): BP systolic 144–179; BP diastolic 53–69; PULSE 85–99; RESP 11–20; TEMP 36.1–36.6; O2SAT 95–99; BMI 29.0
--- NOTE | ~2023-10-08 | FL_ITS ---
EXAMINATION: XR FLUOROSCOPY WITH IMAGES CLINICAL INFORMATION: Left L5-S1 facetectomy with foraminotomy. COMPARISON: Fluoroscopic guidance dated 04/24/2023. TECHNIQUE: Fluoroscopy Supervised By: Dr. Aquiles Ramos. Fluoroscopy Time: 0.3. Cumulative Dose: 29.17 mGy. DAP: 0.6473 Gycm2. Images: 2. FINDINGS: The 2 submitted images show bilateral posterior fixator rods and pedicular screws at L3-L4 and a posterior fixator rods and pedicular screws on the left at L5-S1. FL/FL guidance in OR IMPRESSION: Intraoperative fluoroscopic guidance is provided during L5-S1 facetectomy with foraminotomy. Please see the patient's Operative Report for full procedural details.
[2023-10-08] MEDS: Lactated Ringers 1,000 ML 100 ML IVCONT (12:00)
[2023-10-08] MEDS: Scopolamine 1.5 MG PATCH.TD.3 TRANSDERMA (12:00)
--- NOTE | 2023-10-08 14:19 | PM.DS ---
DS: Providers Provider Date of Service: 10/08/23 Primary care physician: Leigh Alfred NP DS: Summary Time Attestation Discharge coordination time: Less than 30 minutes Quality: Safe Use of Opioids Does Pt have an Active Cancer Diagnosis on the Problem List?: No Quality: Stroke Does the patient have a stroke diagnosis?: No Physical Exam Vital Signs: Vital Signs: Last Vital Signs Temp 97.3 F 10/08/23 12:02 Pulse 85 10/08/23 12:02 Resp 16 10/08/23 12:02 BP 179/63 H 10/08/23 12:02 Pulse Ox 98 10/08/23 12:02 O2 Del Method Room Air 10/08/23 12:02 BMI result Body Mass Index 29.0 Discharge Plan Discharge Patient Disposition: Home, Self-Care Referrals: Leigh Alfred NP [Primary Care Provider] - 1 Week Discharge Medications: New oxycodone 5 mg tablet 5 mg PO Q6H PRN (Reason: severe pain (scale score 7-10)) Qty: 30 0RF Rx Instructions: Partial Fill upon patient request. Continued sertraline 100 mg tablet 50 mg PO QAM calcium carbonate-vitamin D3 600 mg-5 mcg (200 unit) Tablet 1 tab PO DAILY aspirin 81 mg Tablet,Delayed Release (Dr/Ec) 81 mg PO DAILY levothyroxine 25 mcg tablet 25 mcg PO DAILY pantoprazole 40 mg tablet,delayed release (DR/EC) 40 mg PO DAILY magnesium oxide 500 mg Tablet 500 mg PO DAILY melatonin 10 mg Tablet 10 mg PO BEDTIME amitriptyline 10 mg tablet 10 mg PO BEDTIME hydrochlorothiazide 50 mg Tablet 50 mg PO DAILY cholecalciferol (vitamin D3) [Vitamin D3] 50 mcg (2,000 unit) Tablet 50 mcg PO DAILY cyanocobalamin (vitamin B-12) 1,000 mcg/mL Kit 1,000 mcg IM Q8W Probiotic Stool Softener lisinopril 30 mg Tablet 30 mg PO DAILY Discharge Orders: Discharge Order (Routine); Ordered 10/08/23 Ordered By: Sudhir Aviles Diet: Advance to usual diet Activity on Discharge: As tolerated Activity Restrictions/Additional Instructions: After your spinal surgery we ask you to observe the following restrictions/guidelines: Activity: With lumbar fusion surgery it is normal to have days in the first couple of weeks where you have increased leg pain. This usually lasts 1-2 days and self resolves with the continuation of medication. Attempt to stay mobile and continue activity as tolerated. It is normal to feel some discomfort as you increase your activity, but that will improve with time. We ask you avoid heavy lifting or activities that cause pain. As a general rule, 8lbs is a safe limit for lifting right after surgery. Walk as much as you feel comfortable but not to exhaustion. You will feel extra tired the first few days after surgery. Stay well hydrated. It is OK to walk up and down stairs You may return to driving when you are off narcotics (such as vicodin, oxycodone, dilaudid, etc), and you are back to normal functional capacity. If you have any concerns please check with office before driving. Return to work is specific to each patient and each surgery, so please speak with your doctor/PA at first follow up. Please bring paperwork such as FMLA at that time if you need it filled out. Medications: It is recommended that you take Tylenol 500 mg every 4 hours for the 1st week postoperatively, alongside ibuprofen 600 mg every 8 hours. We will also be prescribing gabapentin 300 mg to be taken every 8 hours for the 1st month postoperatively. We will give you a short supply of narcotics after surgery (usually one weeks worth). Please use this for breakthrough pain that is refractory to the Tylenol ibuprofen and gabapentin. If you need more please call the office but do not use more than prescribed. You will need to give our office 48 hours notice if you need narcotics refilled and we do not fill narcotics on weekends or evenings. If you are on a narcotic, it is a good idea to take a stool softener such as colace or senna to avoid constipation If you take blood thinner such as aspirin, Plavix, Coumadin, Effient, Eliquis etc for conditions such as Afib, DVT, Pulmonary embolus, coronary disease, stents etc please speak with your surgeon about specific details as to when you can resume these medications. You can resume NSAIDs on post op day 1 (eg: Motrin, Naproxen, etc). Follow up: Please call the office, , after surgery to arrange a 3 week follow up for wound check. Wound Care: You may remove your dressing on the first day after surgery. You may leave open to air. Please do not remove the steri strips underneath. they will fall off on their own in one week. IT IS NORMAL FOR THE WOUND TO OOZE OR BE BLOODY FOR A FEW DAYS AFTER SURGERY. IF THIS HAPPENS JUST PLACE NEW DRESSING OVER IT TO AVOID STAINING CLOTHES. You may shower on post op day # 1 We ask that you do not let the water soak the wound. If it does get wet, just towel dry lightly. Please do not scrub your incision or place any type of chemical/ointment on the wound. No tub baths, pools or jacuzzis for one month. If you have any leaking or redness from your wound, or fevers, please call office
--- NOTE | 2023-10-08 14:26 | W.PM.OPN ---
Operative Note Operative Note Date of Service: 10/08/23 Narrative: Preop diagnosis: Left L5 radiculopathy due to neuroforaminal stenosis Postop diagnosis: Same Procedure: Left L5-S1 complete facetectomy; L5-S1 into transverse process fusion; L5-S1 posterior instrumentation; allograft Consent Informed Consent was obtained for this operation. I have explained the nature, purpose and benefits of the operation. I have discussed the risks and benefit of the operation including possible complications or adverse events with patient/family. Alternative(s) were discussed with the patient with their relative benefits and risks as well as the consequences of not accepting the operation were included in obtaining consent. Surgeon: Macario Ramos MD, PhD Assist: DANIEL Nunez Description of Procedure: This 83-year-old female previously underwent a left L5 foraminotomy. She had complete relief but unfortunately her symptoms returned. A repeat MRI is suspicious for ongoing L5 foraminal stenosis. She was offered a complete left L5-S1 facetectomy to decompress the L5 nerve root and a posterior instrumented fusion L5-S1 to make sure that the neuroforamen will not collapse.. The procedure and complication were explained. The patient was consented. The patient was brought to the operating room endotracheally intubated. The patient was turned in a prone position the [place] spine table prepping and draping was done followed by time-out. Two C arms were installed for fluoroscopy. A left paramedian incision was made in preparation for pedicle screw placement. The following steps were taken for pedicle screw placement: First the pediguard tap was used to create a transpedicular trajectory into the vertebral body. Then a K-wire was advanced into the vertebral body. The K-wires were bent out of the way after which the decompression was started. The microscope was brought in. The high-speed drill was used to do a complete L5-S1 facetectomy to decompress the L5 nerve root. The medial wall of the L5 and S1 pedicles could be palpated and the L5 nerve root was seen in the midline well decompressed. A specially designed instrument was advanced over the K-wire to decorticate the posterolateral gutter. A pedicle screw of 6.5 x 45 mm was advanced over the K-wire positioned in the L5 and S1 pedicle. A 35 mm corwin was used to connect the pedicle screws and locked down with locking caps. Final x-rays in AP and lateral projection showed good position of the posterior instrumentation. Allograft was laid down in the posterolateral gutter. The physician assistant track and field coach performed hemostasis and closure of the incision in 2 layers All sponge and needle counts were correct. Patient was extubated and transported in a stable condition to recovery room. Anesthesia: General Estimated blood loss: 20 mL Complications: None. Deposition: Discharged home.
[2023-10-08] MEDS: oxyCODONE HCl Immed Release 5 MG TABLET PO (14:55)
--- NOTE | 2023-10-08 16:26 | MHC.SHP ---
Pre-Procedural Eval Section A Date of Service: 10/08/23 Section B Chief Complaint: Radiculopathy, lumbar region Allergies: Allergies Allergy/AdvReac Type Severity Reaction Status Date / Time codeine Allergy Severe severe Verified 10/08/23 11:52 nausea hydralazine Allergy Severe increased Verified 10/08/23 11:52 BP propoxyphene [From Darvon] Allergy Severe Anaphylaxis Verified 10/08/23 11:52 gabapentin Allergy Intermediate affected Verified 10/08/23 11:52 renal function Sulfa (Sulfonamide AdvReac Intermediate Nausea Verified 10/08/23 11:52 Antibiotics) Iodinated Contrast Media AdvReac Mild metal Verified 10/08/23 11:52 [IV Contrast Dye] taste in mouth Review of Systems Sugical H&P ROS: Negative: Constitution, Cardiovascular, Respiratory, Neurological, Psychiatric, Hem-Onc, Allergic/Immunologic, Gastrointestinal, Genitourinary, Musculoskeletal, Integumentary, Endocrine and Eyes/Ears/Nose/Throat Exam Surgical H&P Exam: Not Evaluated: HEENT, Not Evaluated: Heart, Not Evaluated: Lungs, Not Evaluated: Extremities, Not Evaluated: Abdomen, Not Evaluated: Skin and Not Evaluated: Neurological Plan Diagnosis/Plan: Unchanged I have reviewed the history and physical and performed a pertinent physical examination on my patient. No changes have occurred unless specified. The plan remains the same, Left L5-S1 complete facetectomy; L5-S1 into transverse process fusion; L5-S1 posterior instrumentation. Time Spent With Patient Time: Total time managing care of this patient today _8___ minutes.
== END 2023-10-08 15:32 | disposition home or self-care (01) ==
PROVIDERS: Nurse Practitioner; PCP Nurse Practitioner Gerontology; Visit Provider Neurological Surgery
PROC: (CPT 22612; principal; 2023-10-08 13:30)
DX: M54.16 Radiculopathy, lumbar region (principal); M48.061 Spinal stenosis, lumbar region without neurogenic claudication; Z88.5 Allergy status to narcotic agent; Z88.2 Allergy status to sulfonamides; Z91.041 Radiographic dye allergy status
CPT/HCPCS: 22612; 63047; 22840; 20930; 36415; 80048; 85027; 93005; C1713; J0131; J0690; J1100; J2250; J2405; J2704; J3010; L8699

== ENCOUNTER → 2023-10-08 11:38 | Outpatient (BNV) | payer MEDICARE, MEDICAID, SELFPAY | PROVIDERS: PCP Nurse Practitioner Gerontology; Visit Provider Physician Assistant | DX: M54.16 Radiculopathy, lumbar region (principal) | CPT/HCPCS: 20930; 22612; 22840; 63047; 99499 ==

== ENCOUNTER 2023-10-30 09:59 | Outpatient (AMB) | payer MEDICARE, MEDICAID, SELFPAY ==
--- NOTE | 2023-10-30 10:03 | MHC.OFFVIS ---
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 Allergies codeine Allergy (Severe, Verified 10/08/23 11:52) severe nausea hydralazine Allergy (Severe, Verified 10/08/23 11:52) increased BP propoxyphene [From Darvon] Allergy (Severe, Verified 10/08/23 11:52) Anaphylaxis gabapentin Allergy (Intermediate, Verified 10/08/23 11:52) affected renal function Sulfa (Sulfonamide Antibiotics) Adverse Reaction (Intermediate, Verified 10/08/23 11:52) Nausea Iodinated Contrast Media [IV Contrast Dye] Adverse Reaction (Mild, Verified 10/08/23 11:52) metal taste in mouth PFSH Medical History Post-operative nausea and vomiting Arthritis Anemia Difficulty swallowing Sleep apnea Asthma Depression with anxiety Hypothyroid GERD (gastroesophageal reflux disease) HTN (hypertension) Breast cancer CLL (chronic lymphocytic leukemia) Basal cell carcinoma Colon cancer Surgical History Hx of shoulder surgery Hx of cataract extraction Hx of resection of small bowel Hx of resection of small bowel History of Hx of hysterectomy History of back surgery History of esophagogastroduodenoscopy (EGD) H/O colonoscopy Hx of partial thyroidectomy History of breast lump/mass excision Hx of colectomy History of back surgery Social History Housing Other:: duplex home-side by side-one level w/basement Are you a primary acute care nurse practitioner to a significant other at home: No Do you presently have visiting nurse or other home services: No Comment: given oxycodone Patient Tobacco Use Status: Former Tobacco user Quit Date: Tobacco use type: Cigarette Assessment & Plan Assessment & Plan (1) S/P spinal surgery: Code(s): Z98.890 - Other specified postprocedural states Plan Procedure: Left L5-S1 complete facetectomy; L5-S1 into transverse process fusion; L5-S1 posterior instrumentation Reena comes in today for her 1st postoperative visit. She reports she is very satisfied with the surgery and feels much better than she did pre-operatively. Shereports she is up walking around and completing the majority of her ADLs. She reports that she no longer suffers from her left-sided shooting radiculopathy. She reports that she currently is pain-free. We discussed postoperative healing course, she was encouraged to begin walking at least 1 mile per day to help strengthen her back & core, and prevent further injury to her spine. We reviewed her fluoroscopy x-rays from her surgery together during this visit. No new neurological deficits. Reena is able to ambulate well, rises from a seated position without difficulty. Posterior incision site is closed, well healing & dry. Reena is doing very well and there is no need for further routine follow-up unless requested by her. She was informed that she is welcome to come and see us in the future if she needs to. Sudhir Ramos MD,PhD [facility] Coding Level of Care Code Global (47403) Diagnoses S/P spinal surgery Z98.890
== END 2023-10-30 10:16 | disposition home or self-care (01) ==
PROVIDERS: PCP Nurse Practitioner Gerontology; Visit Provider Physician Assistant
DX: Z98.890 Other specified postprocedural states (principal)
CPT/HCPCS: 99024

== ENCOUNTER → 2023-10-30 09:59 | Outpatient (BNVA) | payer MEDICARE, MEDICAID, SELFPAY | PROVIDERS: PCP Nurse Practitioner Gerontology; Visit Provider Physician Assistant | DX: Z98.890 Other specified postprocedural states (principal) | CPT/HCPCS: 99212 ==

== ENCOUNTER 2023-11-20 13:39 | Outpatient (AMB) | payer MEDICARE, MEDICAID, SELFPAY ==
--- NOTE | 2023-11-20 13:41 | A.SPINEOV_ITS ---
Intake Intake Visit Reasons: low back pain Intake Note: Ms. Bautista is here today c/o Low back pain. Patient Relations Representative Required: No Allergies codeine Allergy (Severe, Verified 10/08/23 11:52) severe nausea hydralazine Allergy (Severe, Verified 10/08/23 11:52) increased BP propoxyphene [From Darvon] Allergy (Severe, Verified 10/08/23 11:52) Anaphylaxis gabapentin Allergy (Intermediate, Verified 10/08/23 11:52) affected renal function Sulfa (Sulfonamide Antibiotics) Adverse Reaction (Intermediate, Verified 10/08/23 11:52) Nausea Iodinated Contrast Media [IV Contrast Dye] Adverse Reaction (Mild, Verified 10/08/23 11:52) metal taste in mouth Assessment & Plan Assessment & Plan (1) S/P spinal surgery: Code(s): Z98.890 - Other specified postprocedural states (2) Lumbar radiculopathy: Code(s): M54.16 - Radiculopathy, lumbar region Plan Mrs Bautista is here in follow-up today. She had great success from her pedicle screw placement for indirect decompression of the L5 foramen. She is about 6 weeks out from surgery and has no leg pain. She is dealing with some discomfort in her low back on the left side and across her back when she is standing for length of time or doing repetitive activities at work. We discussed recovery again in the fact that there is 2 screws and mobilizing that segment of her lower facet area maybe causing some referred pain. I told her that things are still healing she should give this time and just avoid activities that her straining but that in general it should just go away with time. I can give her a referral to PT down the road if it keeps happening but I think this will just go away on its own. She is going to follow up with me in 6 weeks. If she has not having any pain or it is getting better I told her just to cancel the appointment. George Ramos MD, PhD [facility] Coding Level of Care Code Global (33995) Diagnoses S/P spinal surgery Z98.890 Lumbar radiculopathy M54.16
== END 2023-11-20 14:10 | disposition home or self-care (01) ==
PROVIDERS: PCP Nurse Practitioner Gerontology; Visit Provider Physician Assistant
DX: Z98.890 Other specified postprocedural states (principal); M54.16 Radiculopathy, lumbar region
CPT/HCPCS: 99024

== ENCOUNTER → 2023-11-20 13:39 | Outpatient (BNVA) | payer MEDICARE, MEDICAID, SELFPAY | PROVIDERS: PCP Nurse Practitioner Gerontology; Visit Provider Physician Assistant | DX: M54.16 Radiculopathy, lumbar region (principal); Z98.890 Other specified postprocedural states | CPT/HCPCS: 99212 ==

== ENCOUNTER 2024-01-01 11:17 | Outpatient (AMB) | payer MEDICARE, MEDICAID, SELFPAY ==
--- NOTE | 2024-01-01 11:22 | A.SPINEOV_ITS ---
Intake Intake Visit Reasons: 6 weeks f/up Intake Note: Ms. Bautista is here today for a 6 weeks F/u. 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: No Allergies codeine Allergy (Severe, Verified 01/01/24 11:40) severe nausea hydralazine Allergy (Severe, Verified 01/01/24 11:40) increased BP propoxyphene [From Darvon] Allergy (Severe, Verified 01/01/24 11:40) Anaphylaxis gabapentin Allergy (Intermediate, Verified 01/01/24 11:40) affected renal function Sulfa (Sulfonamide Antibiotics) Adverse Reaction (Intermediate, Verified 01/01/24 11:40) Nausea Iodinated Contrast Media [IV Contrast Dye] Adverse Reaction (Mild, Verified 01/01/24 11:40) metal taste in mouth Assessment & Plan Assessment & Plan (1) S/P spinal surgery: Code(s): Z98.890 - Other specified postprocedural states Plan MRs Bautista is just under 3 months out from her L5-S1 pedicle screws and foraminotomy for lumbar radiculopathy. As in my last note, she has been doing great from the standpoint of the radiculopathy could not be happier. She continues however to have pain just below the incision site on the left side of her low back. On palpation I can feel it is red in the area of 1 of the [place] heads of the pedicle screw. I suspect she is getting muscular irritation from this in combination with scar tissue. I am going to send her to physical therapy. At this point the symptoms are not disabling there just annoying in require her to take Tylenol in the morning so it hopefully will just get better on its own with some gentle conservative treatment. George Ramos MD, PhD [facility] Orders: Orders PT Evaluation and Treatment Today Z98.890 - Other specified postprocedural states Coding Level of Care Code Global (40954) Diagnoses S/P spinal surgery Z98.890
== END 2024-01-01 12:31 | disposition home or self-care (01) ==
PROVIDERS: PCP Nurse Practitioner Gerontology; Visit Provider Physician Assistant
DX: Z98.890 Other specified postprocedural states (principal)
CPT/HCPCS: 99024

== ENCOUNTER → 2024-01-01 11:17 | Outpatient (BNVA) | payer MEDICARE, MEDICAID, SELFPAY | PROVIDERS: PCP Nurse Practitioner Gerontology; Visit Provider Physician Assistant | DX: Z98.890 Other specified postprocedural states (principal) | CPT/HCPCS: 99212 ==

== ENCOUNTER 2024-06-02 14:58 | Outpatient (AMB) | payer MEDICARE, MEDICAID, SELFPAY ==
--- NOTE | 2024-06-02 14:59 | HO.SPINEOV ---
Intake Visit Reasons: left sided pain Intake Note: Ms. Vazquez is here today c/o Left sided back pain. 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: No Allergies codeine Allergy (Severe, Verified 01/01/24 11:40) severe nausea hydralazine Allergy (Severe, Verified 01/01/24 11:40) increased BP propoxyphene [From Darvon] Allergy (Severe, Verified 01/01/24 11:40) Anaphylaxis gabapentin Allergy (Intermediate, Verified 01/01/24 11:40) affected renal function Sulfa (Sulfonamide Antibiotics) Adverse Reaction (Intermediate, Verified 01/01/24 11:40) Nausea Iodinated Contrast Media [IV Contrast Dye] Adverse Reaction (Mild, Verified 01/01/24 11:40) metal taste in mouth Assessment & Plan Assessment & Plan (1) Left hip pain: Code(s): M25.552 - Pain in left hip Category: Medical Plan Mrs Vazquez is here in the office today to follow-up. She had a very successful L5-S1 pedicle screw fixation to treat foraminal narrowing. Over the summer she was undergoing therapy to treat some issues for her low back and generally was very successful with that as well. About 2 weeks ago, she noticed an abrupt onset of left anterior hip pain. She is getting some degree of low back pain, but the anterior hip pain has been so severe that it is stopped her in her tracks at times it made her feel like she wants to fall. She came in the office today because she was not sure if he had something to do with her nerves. I examined her and she has full strength negative straight leg raise sign, but very intense amount of pain generated with SLOAN testing and internal rotation on the left. It generates pain into her anterior groin and into her left greater trochanter area. I am not sure if this is some kind of hip inflammation or tendon irritation of some sort. I am going to order an x-ray and send her to orthopedics to see if they have any thoughts on what this could be. Total amount of time spent in this visit was 20 minutes in discussion of symptoms, ordering x-ray and subsequent plan of care George Ramos MD,PhD [facility] Orders: Orders XR hip LT min 2V Today M25.552 - Pain in left hip Referrals Orthopedics Referral M25.552 - Pain in left hip Coding Level of Care Code Est Pt Level 3 (29786) Diagnoses Left hip pain M25.552
== END 2024-06-02 15:58 | disposition home or self-care (01) ==
PROVIDERS: PCP Nurse Practitioner Gerontology; Visit Provider Physician Assistant
DX: M25.552 Pain in left hip (principal)
CPT/HCPCS: 99213

== ENCOUNTER 2024-06-02 14:58 | Outpatient (REF) | payer MEDICARE, MEDICAID, SELFPAY | END 2024-06-02 14:59 | disposition home or self-care (01) | LOC: HO.HOSX 14:58 | PROVIDERS: PCP Nurse Practitioner Gerontology; Visit Provider Physician Assistant | DX: M25.552 Pain in left hip (principal) | CPT/HCPCS: 99212 ==

== ENCOUNTER 2025-01-13 14:12 | Outpatient (AMB) | payer MEDICARE, MEDICAID, SELFPAY ==
--- NOTE | 2025-01-13 14:13 | A.SPINEOV_ITS ---
Intake Visit Reasons: right sided back pain Intake Note: Ms. Bautista is here today c/o right sided back pain. 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: No Allergies codeine Allergy (Severe, Verified 01/01/24 11:40) severe nausea hydralazine Allergy (Severe, Verified 01/01/24 11:40) increased BP propoxyphene [From Darvon] Allergy (Severe, Verified 01/01/24 11:40) Anaphylaxis gabapentin Allergy (Intermediate, Verified 01/01/24 11:40) affected renal function Sulfa (Sulfonamide Antibiotics) Adverse Reaction (Intermediate, Verified 01/01/24 11:40) Nausea Iodinated Contrast Media [IV Contrast Dye] Adverse Reaction (Mild, Verified 01/01/24 11:40) metal taste in mouth Assessment & Plan Assessment & Plan (1) Right buttock pain: Code(s): M79.18 - Myalgia, other site Category: Medical Plan Mrs Bautista came back in follow-up. She has had at least 6 months of pain that runs along the right buttock region going down into her right posterior thigh and at times will wrap around towards her knee. It does not feel quite like the nerve pain that she had on the left side that resulted in surgical intervention. 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 There is no focal tingling numbness or weakness shooting down the leg. She did have something similar last year in her left hip and it was fixed quite easily with physical therapy visits. I examined her again today and I do not find any focal motor deficits but there is absent reflexes at the patella. She does have a lot of tenderness with manipulation of her leg specifically SLOAN testing. I do not know if this is a gluteal tendinopathy versus a hip inflammation but I am going to send her back to physical therapy given that she had such a great response last time and we can re-evaluate again if it does not fix it. Total amount of time spent in this visit was 20 minutes in discussion of symptoms, ordering PT and subsequent plan of care George Ramos MD,PhD [facility] Orders: Orders PT Evaluation and Treatment Today M79.18 - Myalgia, other site Coding Level of Care Code Est Pt Level 3 (78875) Diagnoses Right buttock pain M79.18
--- OUTSIDE RECORDS SUMMARY | 2025-01-13 14:54 | XMS_ITS | Continuity of Care Document ---
Author Organization Formerly [facility], Main Office Address [address] [facility] [address] [place] [address] Care Team Providers Care Dermatology Technician Name Role Phone LEIGH ALFRED Primary Care Provider [phone] Assessment Encounter Date Assessment Date Assessment LastModified by Organization Details LastModified Time 01/11/2025 01/11/2025 During this encounter, 2 of the 3 elements of MDM addressed: (1)Number and Complexity of problems: 1 undiagnosed new problem with uncertain prognosis (2)Amount/Compl exity of data (need 1 out of 3 categories): (3)Moderate Risk of morbidity from additional diagnostic testing or treatment (one needed): Prescription Drug management. Not available 01/11/2025 09:48:56 Plan of Treatment Reminders Order Date Submit Date Provider Last Modified By Organization Details Last Modified Time Details Appointments MEDICARE ANNUAL WELLNESS 2024 01:40P M Paola Dial Not available Not available Not available Lab BMP, serum or plasma 2024 025 JEREMIAS [facility], [address], [place], [address], 01/11/2025 09:53:01 Referral None recorded. Procedures None recorded. Surgeries None recorded. Imaging US, echocardi ogram 2024 025 [email or web address] [facility], [address], [place], [address], 01/13/2025 08:56:12 Medication Orders hydrochlo rothiazid e 50 mg tablet 2024 025 [email or web address] [facility], [facility], [place] Rub[place], [address], 01/11/2025 09:52:57 Patient TargetsNo targets recorded. Patient InstructionsNo instructions recorded. Reason for Referral None Reported. Problems Name Problem SNOMED Code Status Onset Date Resolution Date Notes Provider Name and Address Organization Details Recorded Time Hyperlipidemia 14951944 Active 2023 Leigh Alfred NP [address] [facility], [address], [place], [address], [place] [facility] 4 11:03:45 History of malignant neoplasm of colon 194766287 Active 2024 Leigh Alfred NP [address] [facility], [address], [place], [address], [place] [facility] 5 14:53:12 Essential hypertension 84117759 Active Leigh Alfred NP [address] [facility], [address], [place], [address], [place] [facility] 2 13:34:04 Hypothyroidism 04809050 Active Leigh Alfred NP [address] 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, [address], [place], [address], [place] [facility] 2 13:34:35 Major depressive disorder 110886616 Active Leigh Alfred NP [address] [facility], [address], [place], [address], [place] [facility] 2 13:34:56 Gastroesophage al reflux disease 954478643 Active Leigh Alfred NP [address] [facility], [address], [place], [address], [place] [facility] 2 13:35:33 Chronic back pain 829199108 Active Leigh Alfred NP [address] [facility], [address], [place], [address], [place] [facility] 2 13:37:11 Pain in left lower limb 262418689 Active 2021 Leigh Alfred NP [address] [facility], [address], [place], [address], [facility] 2 13:39:56 Insomnia 642304003 Active Leigh Alfred NP [address] [address], [place], 1, [facility] 2 13:49:27 Irritable bowel syndrome 63641985 Active Leigh Alfred NP [address] [address], [place], [address], [facility] 2 13:49:44 Problem Notes None recorded. Procedures Surgical History Date Name Laterality Status Provider Name and Address Organization Details Recorded Time 06/08/20 24 [facility] 06/20/2024 10:18:30 06/22/20 23 Most Recent Mammogram completed Paola Dial [address] [place] [address], [place], [address], [facility] 11/27/2023 09:45:22 Imaging Results None recorded. Procedure Notes None recorded. Medical Equipment None Reported. Allergies Allergen ID Allergen Name Allergen Category Reaction Reaction Severity Criticality Documentation Date Start Date Code Code System Note Provider Name and Address Organization Details Recorded Time 964 codeine medicatio n nausea Not available Not available 02/26/2022 2670 RxNorm Marlon Gonsalez [address] [place] [address], [place], [address], [facility] - [facility] 2 13:23:49 965 Substance with sulfonami de structure and antibacte rial mechanism of action (substanc e) medicatio n nausea Not available Not available 02/26/2022 51164 8003 SNOMED Marlon Gonsalez [address] [place] [address], [place], [address], [facility] - [facility] 2 13:24:26 966 propoxyph silas hydrochlo ride medicatio n nausea Not available Not available 02/26/2022 81907 RxNorm Marlon Gonsalez [address] [place] [address], [place], [address], [place] [facility] 2 13:25:43 967 hydralazi ne medicatio n chest pain Not available Not available 02/26/2022 5470 RxNorm Marlon Gonsalez [address] [facility] [address], [facility], [address], [place] [facility] 13:26:19 Medications Name Sig Start Date Stop Date Status Note LastModified by Organization Details LastModified Time losartan 50 mg tablet TAKE 1 TABLET DAILY active Not Available Not Available No t Available cyclobenzap rine 10 mg tablet TAKE ONE TABLET BY MOUTH THREE TIMES A DAY NEEDED 11/24 completed Not Available Not Available Not Available trazodone 50 mg tablet TAKE 1 TO 2 TABLETS BY MOUTH AT BEDTIME active Not Available Not Available No t Available azithromyci n 250 mg tablet TAKE 2 TABLETS BY MOUTH TODAY, THEN TAKE 1 TABLET DAILY FOR 4 DAYS DIRECTED 01/11 completed Not Available Not Available Not Available alprazolam 1 mg tablet TAKE 1 TABLET BY MOUTH 1 HOUR BEFORE INJECTION 11/24 completed Not Available Not Available Not Available hydrochloro thiazide 50 mg tablet TAKE 1 TABLET BY MOUTH EVERY DAY 2024 active Not Available Not Available Not Avai lable amoxicillin 600 mg-potassiu m clavulanate 42.9 mg/5 mL oral suspension Take 7.5 mL twice a day by oral route for 5 days. 01/11 completed Not Available Not Available Not Available meloxicam 15 mg tablet TAKE ONE TABLET BY MOUTH EVERY DAY 10/06 completed Not Available Not Available Not Available lisinopril 20 mg tablet Take 1 tablet every day by oral route. 11/11 completed Not Available Not Available Not Available ondansetron HCl 4 mg tablet TAKE ONE TABLET BY MOUTH EVERY 8 HOURS 02/26 completed Not Available Not Available Not Available sertraline 100 mg tablet Take 1 tablet by mouth for 90 day 09/08 completed Not Available Not Available Not Available prednisone 5 mg tablet TAKE 7 TABLETS TWICE DAILY FOR 1 DAY THEN 6 TABLETS TWICE DAILY FOR 1 DAY THEN 5 TABLETS TWO TIMES A DAY, THEN TAKE FOUR TABLETS BY MOUTH TW 02/26 completed Not Available Not Available Not Available meclizine 12.5 mg tablet TAKE 1 TABLET BY MOUTH TWICE DAILY FOR 14 DAYS 10/06 completed Not Available Not Available Not Available ciprofloxac in 500 mg tablet TAKE 1TABLET BY MOUTH TWICE A DAY; DAY OF INJECTION 02/26 completed Not Available Not Available Not Available tramadol 50 mg tablet TAKE ONE TABLET BY MOUTH EVERY 6 HOURS NEEDED FOR MODERATE- SEVERE PAIN 11/24 completed Not Available Not Available Not Available amitriptyli ne 50 mg tablet Take 1 tablet every day by oral route at bedtime. 11/06 completed Not Available Not Available Not Available alprazolam 0.5 mg tablet TAKE ONE TABLET BY MOUTH ONE HOUR BEFORE INJECTION 02/26 completed Not Available Not Available Not Available lorazepam 0.5 mg tablet TAKE 1 TABLET BY MOUTH ONCE NEEDED FOR ANXIETY. TAKE ONE TABLET PRIOR TO MRI AND SECOND PILL UPON GETTING INTO MRI 10/06 completed Not Available Not Available Not Available Synthroid 25 mcg tablet TAKE 1 TABLET DAILY active Not Available Not Available No t Available amitriptyli ne 10 mg tablet TAKE 1-2 TABLETS DAILY active Not Available Not Available No t Available benzonatate 100 mg capsule TAKE 1 CAPSULE BY MOUTH THREE TIMES A DAY FOR 10 DAYS 01/11 completed Not Available Not Available Not Available cephalexin 500 mg capsule TAKE 4 CAPSULES BY MOUTH THE MORNING OF INJECTION 05/05 completed Not Available Not Available Not Available pantoprazol e 40 mg tablet,eva yed release TAKE 1 TABLET ONCE DAILY active Not Available Not Available No t Available cyanocobala min (vit B-12) 1,000 mcg/mL injection solution INJECT 1ML INTRAMUSC ULARLY EVERY 2 MONTHS active Not Available Not Available No t Available lisinopril 10 mg tablet one atblet daily 11/11 completed Not Available Not Available Not Available lidocaine 5 % topical patch APPLY ONE PATCH EXTERNALL Y ONCE DAILY NEEDED FOR PAIN REMOVE PATCH AFTER 12 HOURS 11/24 completed Not Available Not Available Not Available BD Luer-Tasneem Syringe 3 mL 25 gauge x 1 USE ONE SYRINGE EVERY 28 DAYS WITH CYANCOBAL GILMORE INJECTION active Not Available Not Available No t Available lisinopril 30 mg tablet Take 1 tablet every day by oral route. 04/07 completed Not Available Not Available Not Available docusate sodium 100 mg capsule TAKE ONE CAPSULE BY MOUTH TWICE A DAY NEEDED FOR CONSTIPAT ION active Not Available Not Available No t Available diclofenac sodium 75 mg tablet,eva yed release TAKE 1 TABLET BY MOUTH 2 TIMES A DAY NEEDED FOR PAIN 02/26 completed Not Available Not Available Not Available SB Low Dose ASA EC 81 mg tablet,eva yed release Take 1 tablet every day by oral route. active Not Available Not Available No t Available hydroxyzine HCl 25 mg tablet TAKE ONE TO TWO TABLETS BY MOUTH AT BEDTIME NEEDED FOR SLEEP active Not Available Not Available No t Available hydrochloro thiazide 25 mg tablet TAKE 1 TABLET DAILY 01/11 completed Not Available Not Available Not Available gabapentin 100 mg capsule TAKE ONE CAPSULE BY MOUTH EVERY DAY AT BEDTIME 02/26 completed Not Available Not Available Not Available lorazepam 1 mg tablet TAKE 1 TABLET BY MOUTH ONCE;1 HOUR BEFORE MRI; DO NOT DRIVE WHILE TAKING) 10/06 completed Not Available Not Available Not Available scopolamine 1 mg over 3 days transdermal patch APPLY 1 PATCH TOPICALLY TO THE SKIN EVERY 72 HOURS 02/26 completed Not Available Not Available Not Available methylpredn isolone 4 mg tablets in a dose pack TAKE SIX TABLETS FOR 1 DAY, THEN FIVE TABLETS FOR 1 DAY, THEN FOUR TABLETS FOR 1 DAY,THEN THREE TABLETS FOR 1 DAY, THEN TWO TABLETS FOR 1 DA 10/06 completed Not Available Not Available Not Available sertraline 50 mg tablet TAKE 1 TABLET ONCE DAILY active Not Available Not Available No t Available amoxicillin 875 mg-potassiu m clavulanate 125 mg tablet TAKE 1 TABLET BY MOUTH EVERY 12 HOURS FOR 5 DAYS 01/11 completed Not Available Not Available Not Available oxycodone 5 mg tablet TAKE ONE TABLET BY MOUTH EVERY 4 HOURS NEEDED FOR SEVERE PAIN. active Not Available Not Available No t Available rosuvastati n 5 mg tablet TAKE 1 TABLET DAILY active Not Available Not Available No t Available amitriptyli ne 10mg 2 tabs at HS 07/23 completed Not Available Not Available Not Available diclofenac 1 % topical gel APPLY 2 GRAMS TO AFFECTED AREA(S) FOUR TIMES A DAY active Not Available Not Available No t Available Vitals Date Recorded Body height Body mass index (BMI) Body weight Heart rate Oxygen saturation Oxygen saturation in Arterial blood by Pulse oximetry Systolic blood pressure Diastolic blood pressure Provider Name and Address Organization Details Last Updated DateTime 5 158.75 cm 30.1 kg/m2 28456.7 3 g 90 /min 96 % 96 % 126 mm[Hg] 60 mm[Hg] Cleopatra pearson [facility] [employer] [facility] 5 09:33:05 Date Recorded Heart rate Heart rate Systolic blood pressure Diastolic blood pressure Systolic blood pressure Diastolic blood pressure Provider Name and Address Organization Details Last Updated DateTime 5 82 /min 82 /min 168 mm[Hg] 120 mm[Hg] 152 mm[Hg] 61 mm[Hg] Not Available [employer] 5 19:27:38 Social History Question Answer Notes LastModified by Organizat ion Details LastModified Time Tobacco Smoking Status Never Smoker Leigh Alfred, NEDA [address] [facility], [facility] [address], [place], [address], [facility] [employer] [facility] 02/26/2022 13:47:15 What Is Your Level Of Alcohol Consumption? Occasional [email or web address] Information not available 02/26/2022 What Is Your Level Of Caffeine Consumption? Occasional [email or web address] Information not available 02/26/2022 Are You Currently Employed? Yes Information not available 02/26/2022 How Many Children Do You Have? 2 [email or web address] Information not available 02/26/2022 What Is Your Relationship Status? [email or web address] Information not available 02/26/2022 Do You Use Any Illicit Or Recreational Drugs? No [email or web address] Information not available 02/26/2022 Sex: Unknown Functional Status Question Answer Note LastModified by Organization D etails LastModified Time What is your exercise level? Moderate [email or web address] Information not available 02/26/2022 Mental Status None recorded. Family History Relationship Description Onset Age of this Age Resolved Age Notes LastModified by Organization Details LastModified Time Mother Essential hypertension Not available 04/2022 13:45:50 Father Essential hypertension [email or web address] Not available 04/2022 13:46:10 Medical History No medical history recorded. Gynecological History Statement/Question Response Most Recent Mammogram 06/22/2023 Date of Last Colonoscopy 06/08/2024 Obstetrics History GPAL:G 0 P 0 0 0 0 Immunizations Vaccine Type Date Status Note Provider Nam e and Address Organization Details Recorded Time Influenza, high-dose, quadrivalent, PF 2 completed Marii velazquez, [place] [facility] 07/30/2022 16:04:12 COVID-19, mRNA, LNP-S, bivalent, PF, 30 mcg/0.3 mL dose 3 completed Marii Brown null, [place] [facility] 02/24/2023 13:33:30 RSV, recombinant, protein subunit RSVpreF, adjuvant reconstituted, 0.5 mL, PF [address], [address], [place] [facility] 07/07/2023 10:52:01 Influenza, high-dose, quadrivalent, PF 3 completed Cleopatra Jimenez null, [place] [facility] 09/25/2023 15:20:37 COVID-19, mRNA, LNP-S, PF, scott-sucrose, 30 mcg/0.3 mL 3 completed Cleopatra Jimenez null, [place] [facility] 09/25/2023 15:20:47 zoster recombinant 4 completed Cleopatra Jimenez null, [place] [facility] 01/07/2024 09:50:41 zoster recombinant [address], [address], [place] [facility] 04/07/2024 11:04:00 zoster live [address], [address], [place] [facility] 02/26/2022 13:32:42 Influenza, adjuvanted, trivalent, PF [address], [address], [place] [facility] 02/26/2022 13:32:42 COVID-19, mRNA, LNP-S, PF, 30 mcg/0.3 mL dose [address], [address], [place] [facility] 02/26/2022 13:32:42 Tdap [address], , [place] [facility] 02/26/2022 13:32:42 Influenza, adjuvanted, trivalent, PF 7 completed [address] [address], [place], , [place] [facility] 02/26/2022 13:32:42 Pneumococcal conjugate PCV 13 5 completed [address] [address], [place], , [place] [facility] 02/26/2022 13:32:42 Influenza, high-dose, trivalent, PF 6 completed [address] [address], [place], , [place] [facility] 02/26/2022 13:32:42 COVID-19, mRNA, LNP-S, PF, 30 mcg/0.3 mL dose, scott-sucrose [address], , [place] [facility] 02/26/2022 13:32:42 Influenza, MDCK, quadrivalent, PF 1 completed [address] [address], [place], , [place] [facility] 02/26/2022 13:32:42 pneumococcal polysaccharide PPV23 [address], , [place] [facility] 02/26/2022 13:32:42 Influenza, high-dose, quadrivalent, PF [address], , [place] [facility] 02/26/2022 13:32:42 Influenza, high-dose, trivalent, PF 5 completed [address] [address], [place], , [place] [facility] 02/26/2022 13:32:42 COVID-19, mRNA, LNP-S, PF, 30 mcg/0.3 mL dose [address], [facility] [address], [place], [address], [place] [facility] 02/26/2022 13:32:42 COVID-19, mRNA, LNP-S, PF, 30 mcg/0.3 mL dose [address], [address], [place], [address], [place] [facility] 02/26/2022 13:32:42 COVID-19, mRNA, LNP-S, PF, scott-sucrose, 30 mcg/0.3 mL 4 completed Cleopatra Jimenez null, [place] [facility] 11/08/2024 14:31:51 Tdap 4 completed Cleopatra Barbara null, [place] [facility] 11/08/2024 14:31:51 Influenza, high-dose, trivalent, PF 4 completed Cleopatra Jimenez null, [place] [facility] 11/08/2024 14:31:51 Influenza, MDCK, quadrivalent, PF 1 completed Marii Brown null, [place] [facility] 04/01/2022 09:17:14 Influenza, high-dose, quadrivalent, PF 1 completed Marii Kevin null, [place] [facility] 04/01/2022 09:17:14 Past Encounters Encounter ID Performer Location Encounter Start Date Encounter Closed Date Diagnosis/Indication Diagnosis SNOMED-CT Code Diagnosis ICD10 Code Diagnosis Note [id number] Leigh Alfred NP Main Office [address] [place] [address],[address] [place] [address] 01/11/2025 09:25:13 01/11/2025 10:59:06 Bilateral lower limb edema 214917079 R60.0 Increase HCTZ back to 50mg and recheck BMP in 1 month. Check echo and follow up with results. Health Concerns Section Related Observation LastModified by Organization Detai ls LastModified Time None Recorded Concern Status LastModified by Organization Details LastModified Time None Recorded Payers Encounter Date Sequence Insurance Name Policy Number Policy Guillermo Covered Member ID Guillermo Member ID Guarantor Name 01/11/2025 1 [facility] [place]UE (MEDICARE REPLACEMENT PPO) [id number] Reena Bautista [id number] Reena Bautista 01/11/2025 2 [place] [facility] Reena Vieraore [id number] Reena Bautista Notes Date Note Type Note Provider Name and Address Organization Details Recorded Time 01/11/2025 text/html Here in follow up. She has a wellness check with her insurance plan. She had a PA do this check this time and she talked to him about her legs because they are somewhat swollen. She did see a elementary special education teacher in 2023 and he lowered her diuretic to 25mg daily and she feels like this is why her legs are swollen. She notes that the skin on her legs feels like it is being stretched. She elevates her legs every night and when she wakes up they are improved. Swelling worsens as the day progresses.She also reports when she lays down her chest is heavy with twinges of pain that she describes as a pinching sensation around her heart. She had a normal stress test last summer and saw Dr. Holcomb who reassured her. She wonders about having an echocardiogram. She does not have consistent SOB but some dyspnea with exertion but she feels it is proportionate. Leigh Alfred NP [address] [facility], [facility] [address], [place], [address], [facility] 01/11/2025 09:54:04 OBGyn Episode No OBEpisode recorded.
--- OUTSIDE RECORDS SUMMARY | 2025-01-13 14:54 | XMS_ITS | Data Portability ---
Author Organization [facility], [employer] Address [address] [place] [id number] Care Team Providers Care Staff Research Associate Name Role Phone LEIGH ALFRED Primary Care Provider Assessment Encounter Date Assessment Date Assessment LastModified by Organization Details LastModified Time 01/07/2024 01/07/2024 During this encounter, 2 of the 3 elements of MDM addressed: (1)Number and Complexity of problems: 2 or more stable chronic illnesses (2)Amount/Complex ity of data (need 1 out of 3 categories): Category 3: Discussion of management or test interpretation (3)Moderate Risk of morbidity from additional diagnostic testing or treatment (one needed): . [email or web address] Not available 01/07/2024 11:04:03 04/07/2024 04/07/2024 During this encounter, 2 of the 3 elements of MDM addressed: (1)Number and Complexity of problems: 2 or more stable chronic illnesses (2)Amount/Complex ity of data (need 1 out of 3 categories): Category 3: Discussion of management or test interpretation (3)Moderate Risk of morbidity from additional diagnostic testing or treatment (one needed): Prescription Drug management. [email or web address] Not available 04/07/2024 11:31:10 06/23/2024 06/23/2024 During this encounter, 2 of the 3 elements of MDM addressed: (1)Number and Complexity of problems: 2 or more stable chronic illnesses (2)Amount/Complex ity of data (need 1 out of 3 categories): (3)Moderate Risk of morbidity from additional diagnostic testing or treatment (one needed): Prescription Drug management. [email or web address] Not available 06/23/2024 10:29:34 11/08/2024 11/08/2024 During this encounter, 2 of the 3 elements of MDM addressed: (1)Number and Complexity of problems: 2 or more stable chronic illnesses (2)Amount/Complex ity of data (need 1 out of 3 categories): (3)Moderate Risk of morbidity from additional diagnostic testing or treatment (one needed): Prescription Drug management. [email or web address] Not available 11/08/2024 14:55:15 01/11/2025 01/11/2025 During this encounter, 2 of the 3 elements of MDM addressed: (1)Number and Complexity of problems: 1 undiagnosed new problem with uncertain prognosis (2)Amount/Complex ity of data (need 1 out of 3 categories): (3)Moderate Risk of morbidity from additional diagnostic testing or treatment (one needed): Prescription Drug management. [email or web address] Not available 01/11/2025 09:48:56 Plan of Treatment Reminders Order Date Submit Date Provider Last Modified By Organization Details Last Modified Time Details Appointments MEDICARE ANNUAL WELLNESS 2024 01:40P Lili Dial Not available Not available Not available Lab BMP, serum or plasma 2024 025 JEREMIAS [facility], [address], [place], [address], 01/11/2025 09:53:01 CMP, serum or plasma 2023 024 JEREMIAS [facility], [address], [place], [address], 11/15/2024 10:05:54 lipid panel, serum 2023 024 JEREMIAS [facility], [address], [place], [address], 11/15/2024 10:05:55 CBC 2023 024 JEREMIAS [facility], [address], [place], [address], 11/15/2024 10:05:55 TSH, ultra-sen sitive, serum 2023 024 JEREMIAS [facility] (Centralized Electronic Ordering - All Locations), Patient Can Go To The Location Of Their Choice, [address] 11/15/2024 10:05:56 lipid panel, serum 2023 024 JEREMIAS [facility], [address], [place], [address], 04/06/2024 06:07:59 CMP, serum or plasma 2023 024 JEREMIAS [facility], [address], [place], [address], 04/06/2024 06:07:58 Referral None recorded. Procedures holter monitor placement (PROC) [address] [facility], [address] [place], [address], 01/25/2024 08:29:29 treadmill nuclear stress test (PROC) [address] [facility], [address] [place], [address], 01/25/2024 08:29:15 Surgeries None recorded. Imaging US, echocardi ogram [address] [facility], [address] [place], [address], 01/13/2025 08:56:12 Medication Orders hydrochlo rothiazid e 50 mg tablet 2024 025 [email or web address] [facility], [facility], [address], [address], 01/11/2025 09:52:57 benzonata te 100 mg capsule 2024 025 [facility], [address] [place], [address], 01/11/2025 09:29:10 amoxicill in 875 mg-potass ium clavulana te 125 mg tablet 2024 025 [facility], [address] [place], [address], 01/11/2025 09:29:03 hydroxyzi ne HCl 25 mg tablet 2023 024 [facility], [address], [place], [address], 06/23/2024 10:30:41 rosuvasta tin 5 mg tablet [address] [facility], [facility], [place], [address], 01/07/2024 11:05:29 Patient TargetsNo targets recorded. Patient InstructionsNo instructions recorded. Reason for Referral None Reported. Results Created Date Observation Date Name Description Value Unit Range Abnormal Flag Note LastModifiedBy Organization Detail LastModifiedTime 12/08/1912/08/2023 rapid strep group A, throa t Strep negati ve Not Available Main Office [address] [facility] [address], [place], [address], 12/08/2023 10:09:07 12/17/19 24 12/18/2023 COMP. METAB OLIC PANEL (14) glucose 94 mg/dL 70-99 Not Available [facility] ([facility]) [address] [place], [address], 12/18/2023 06:08:35 12/17/19 24 12/18/2023 COMP. METAB OLIC PANEL (14) BUN 31 mg/dL 8-27 above high normal Not Available [facility] ([facility]) [address] [place], [address], 12/18/2023 06:08:35 12/17/19 24 12/18/2023 COMP. METAB OLIC PANEL (14) creatinine 1.18 mg/dL 0.57-1 .00 above high normal Not Available [facility] ([facility]) [address] [place], [address], 12/18/2023 06:08:35 12/17/19 24 12/18/2023 COMP. METAB OLIC PANEL (14) eGFR 46 mL/mi n/1.7 3 >59 below low normal Not Available [facility] ([facility]) [address] [facility], [place], [address], 12/18/2023 06:08:35 12/17/19 24 12/18/2023 COMP. METAB OLIC PANEL (14) BUN/creatini ne ratio 26 12-28 Not Available [facility] ([facility]) [address] [facility], [place], [address], 12/18/2023 06:08:35 12/17/19 24 12/18/2023 COMP. METAB OLIC PANEL (14) sodium 139 mmol/ L 134-14 4 Not Available [facility] ([facility]) [address] [facility], [place], [address], 12/18/2023 06:08:35 12/17/19 24 12/18/2023 COMP. METAB OLIC PANEL (14) potassium 4.6 mmol/ L 3.5-5. 2 Not Available [facility] ([facility]) [address] [facility], [place], [address], 12/18/2023 06:08:35 12/17/19 24 12/18/2023 COMP. METAB OLIC PANEL (14) chloride 99 mmol/ L 96-106 Not Available [facility] ([facility]) [address] [facility], [place], [address], 12/18/2023 06:08:35 12/17/19 24 12/18/2023 COMP. METAB OLIC PANEL (14) anion gap 19.0 mmol/ L 10.0-1 8.0 above high normal Not Available [facility] ([facility]) [address] [facility], [place], [address], 12/18/2023 06:08:35 12/17/19 24 12/18/2023 COMP. METAB OLIC PANEL (14) carbon dioxide, total 21 mmol/ L Not Available [facility] ([facility]) [address] [facility], [place], [address], 12/18/2023 06:08:35 12/17/19 24 12/18/2023 COMP. METAB OLIC PANEL (14) calcium 9.0 mg/dL 8.7-10 .3 Not Available [facility] ([facility]) [address] [facility], [place], [address], 12/18/2023 06:08:35 12/17/19 24 12/18/2023 COMP. METAB OLIC PANEL (14) protein, total 6.7 g/dL 6.0-8. 5 Not Available [facility] ([facility]) [address] [facility], [place], [address], 12/18/2023 06:08:35 12/17/19 24 12/18/2023 COMP. METAB OLIC PANEL (14) albumin 4.5 g/dL 3.7-4. 7 Not Available [facility] ([facility]) [address] [facility], [place], [address], 12/18/2023 06:08:35 12/17/19 24 12/18/2023 COMP. METAB OLIC PANEL (14) globulin, total 2.2 g/dL 1.5-4. 5 Not Available [facility] ([facility]) [address] [facility], [place], [address], 12/18/2023 06:08:35 12/17/19 24 12/18/2023 COMP. METAB OLIC PANEL (14) A/G ratio 2.0 1.2-2. 2 Not Available [facility] ([facility]) [address] [facility] [place], [address], 12/18/2023 06:08:35 12/17/19 24 12/18/2023 COMP. METAB OLIC PANEL (14) bilirubin, total 0.5 mg/dL 0.0-1. 2 Not Available [facility] ([facility]) [address] [facility], [place], [address], 12/18/2023 06:08:35 12/17/19 24 12/18/2023 COMP. METAB OLIC PANEL (14) alkaline phosphatase 101 IU/L 44-121 Not Available [facility] ([facility]) [address] [facility], [place], [address], 12/18/2023 06:08:35 12/17/19 24 12/18/2023 COMP. METAB OLIC PANEL (14) AST (SGOT) 18 IU/L 0-40 Not Available [facility] ([facility]) [address] [facility] [place], [address], 12/18/2023 06:08:35 12/17/19 24 12/18/2023 COMP. METAB OLIC PANEL (14) ALT (SGPT) 15 IU/L 0-32 Not Available [facility] ([facility]) [address] [facility], [place], [address], 12/18/2023 06:08:35 12/17/19 24 12/18/2023 LP+NO N-HDL RENETTA STERO L cholesterol, total 240 mg/dL 100-19 9 above high normal Not Available [facility] ([facility]) [address] [place], [address], 12/18/2023 06:08:36 12/17/19 24 12/18/2023 LP+NO N-HDL RENETTA STERO L triglyceride s 212 mg/dL 0-149 above high normal Not Available [facility] ([facility]) [address] [place], [address], 12/18/2023 06:08:36 12/17/19 24 12/18/2023 LP+NO N-HDL RENETTA STERO L HDL cholesterol 43 mg/dL >39 Not Available [facility] ([facility]) [address] [place], [address], 12/18/2023 06:08:36 12/17/19 24 12/18/2023 LP+NO N-HDL RENETTA STERO L VLDL cholesterol julissa 39 mg/dL 5-40 Not Available [facility] ([facility]) [address] [place], [address], 12/18/2023 06:08:36 12/17/19 24 12/18/2023 LP+NO N-HDL RENETTA STERO L LDL chol calc ([facility]) 158 mg/dL 0-99 above high normal Not Available [facility] ([facility]) [address] [place], [address], 12/18/2023 06:08:36 12/17/19 24 12/18/2023 LP+NO N-HDL RENETTA STERO L non-HDL cholesterol 197 mg/dL 0-129 above high normal Not Available [facility] ([facility]) [address] [place], [address], 12/18/2023 06:08:36 12/17/19 24 12/18/2023 LP+NO N-HDL RENETTA STERO L comment: SWATCHER Not Available [facility] ([facility]) [address] [place], [address], 12/18/2023 06:08:36 12/17/19 24 12/18/2023 TSH REFLE X TO T4F TSH 2.440 uIU/m L 0.450- 4.500 Not Available [facility] ([facility]) [address] [place], [address], 12/18/2023 06:08:36 12/17/19 24 12/18/2023 VITAM IN B12 vitamin B12 513 pg/mL 232-12 45 Not Available [facility] ([facility]) [address] [place], [address], 12/18/2023 06:08:37 04/05/20 24 04/05/2024 CMP14 +EGFR glucose 106 mg/dL 70-99 above high normal Not Available [facility] ([facility]) [address] [place], [address], 04/06/2024 06:07:58 04/05/20 24 04/05/2024 CMP14 +EGFR BUN 27 mg/dL 8-27 Not Available [facility] ([facility]) [address] [place], [address], 04/06/2024 06:07:58 04/05/20 24 04/05/2024 CMP14 +EGFR creatinine 1.27 mg/dL 0.57-1 .00 above high normal Not Available [facility] ([facility]) [address] [place], [address], 04/06/2024 06:07:58 04/05/20 24 04/05/2024 CMP14 +EGFR eGFR 42 mL/mi n/1.7 3 >59 below low normal Not Available [facility] ([facility]) [address] [place], [address], 04/06/2024 06:07:58 04/05/20 24 04/05/2024 CMP14 +EGFR BUN/creatini ne ratio 21 12-28 Not Available [facility] ([facility]) [address] [place], [address], 04/06/2024 06:07:58 04/05/20 24 04/05/2024 CMP14 +EGFR sodium 138 mmol/ L 134-14 4 Not Available [facility] ([facility]) [address] [place], [address], 04/06/2024 06:07:58 04/05/20 24 04/05/2024 CMP14 +EGFR potassium 4.4 mmol/ L 3.5-5. 2 Not Available [facility] ([facility]) [address] [place], [address], 04/06/2024 06:07:58 04/05/20 24 04/05/2024 CMP14 +EGFR chloride 99 mmol/ L 96-106 Not Available [facility] ([facility]) [address] [facility], [place], [address], 04/06/2024 06:07:58 04/05/20 24 04/05/2024 CMP14 +EGFR carbon dioxide, total 23 mmol/ L 20-29 Not Available [facility] ([facility]) [address] [facility], [place], [address], 04/06/2024 06:07:58 04/05/20 24 04/05/2024 CMP14 +EGFR calcium 9.4 mg/dL 8.7-10 .3 Not Available [facility] ([facility]) [address] [facility], [place], [address], 04/06/2024 06:07:58 04/05/20 24 04/05/2024 CMP14 +EGFR protein, total 6.8 g/dL 6.0-8. 5 Not Available [facility] ([facility]) [address] [place], [address], 04/06/2024 06:07:58 04/05/20 24 04/05/2024 CMP14 +EGFR albumin 4.6 g/dL 3.7-4. 7 Not Available [facility] ([facility]) [address] [place], [address], 04/06/2024 06:07:58 04/05/20 24 04/05/2024 CMP14 +EGFR globulin, total 2.2 g/dL 1.5-4. 5 Not Available [facility] ([facility]) [address] [place], [address], 04/06/2024 06:07:58 04/05/20 24 04/05/2024 CMP14 +EGFR bilirubin, total 0.6 mg/dL 0.0-1. 2 Not Available [facility] ([facility]) [address] [facility] [place], [address], 04/06/2024 06:07:58 04/05/20 24 04/05/2024 CMP14 +EGFR alkaline phosphatase 89 IU/L 44-121 Not Available [facility] ([facility]) [address] [facility] [place], [address], 04/06/2024 06:07:58 04/05/20 24 04/05/2024 CMP14 +EGFR AST (SGOT) 18 IU/L 0-40 Not Available [facility] ([facility]) [address] [facility] [place], [address], 04/06/2024 06:07:58 04/05/20 24 04/05/2024 CMP14 +EGFR ALT (SGPT) 14 IU/L 0-32 Not Available [facility] ([facility]) [address] [place], [address], 04/06/2024 06:07:58 04/05/20 24 04/05/2024 LIPID PROFI LE cholesterol, total 143 mg/dL 100-19 9 Not Available [facility] ([facility]) [address] [facility] [place], [address], 04/06/2024 06:07:59 04/05/20 24 04/05/2024 LIPID PROFI LE triglyceride s 162 mg/dL 0-149 above high normal Not Available [facility] ([facility]) [address] [place], [address], 04/06/2024 06:07:59 04/05/20 24 04/05/2024 LIPID PROFI LE HDL cholesterol 43 mg/dL >39 Not Available [facility] ([facility]) [address] [facility] [place], [address], 04/06/2024 06:07:59 04/05/20 24 04/05/2024 LIPID PROFI LE VLDL cholesterol julissa 28 mg/dL 5-40 Not Available [facility] ([facility]) [address] [place], [address], 04/06/2024 06:07:59 04/05/20 24 04/05/2024 LIPID PROFI LE LDL chol calc ([facility]) 72 mg/dL 0-99 Not Available [facility] [address] [facility] [place], [address], 04/06/2024 06:07:59 04/05/20 24 04/05/2024 LIPID PROFI LE LDL calc comment: SWATCHER Not Available [facility] ([facility]) [address] [place], [address], 04/06/2024 06:07:59 11/14/19 25 11/15/2024 COMP. METAB OLIC PANEL (14) glucose 102 mg/dL 70-99 above high normal Not Available [facility] ([facility]) [address] [place], [address], 11/15/2024 10:05:54 11/14/19 25 11/15/2024 COMP. METAB OLIC PANEL (14) BUN 18 mg/dL 8-27 normal Not Available [facility] ([facility]) [address] [place], [address], 11/15/2024 10:05:54 11/14/19 25 11/15/2024 COMP. METAB OLIC PANEL (14) creatinine 0.97 mg/dL 0.57-1 .00 normal Not Available [facility] ([facility]) [address] [place], [address], 11/15/2024 10:05:54 11/14/19 25 11/15/2024 COMP. METAB OLIC PANEL (14) eGFR 57 mL/mi n/1.7 3 >59 below low normal Not Available [facility] ([facility]) [address] [place], [address], 11/15/2024 10:05:54 11/14/19 25 11/15/2024 COMP. METAB OLIC PANEL (14) BUN/creatini ne ratio 19 12-28 normal Not Available [facility] ([facility]) [address] [facility], [place], [address], 11/15/2024 10:05:54 11/14/19 25 11/15/2024 COMP. METAB OLIC PANEL (14) sodium 141 mmol/ L 134-14 4 normal Not Available [facility] ([facility]) [address] [facility], [place], [address], 11/15/2024 10:05:54 11/14/19 25 11/15/2024 COMP. METAB OLIC PANEL (14) potassium 4.1 mmol/ L 3.5-5. 2 normal Not Available [facility] ([facility]) [address] [facility], [place], [address], 11/15/2024 10:05:54 11/14/19 25 11/15/2024 COMP. METAB OLIC PANEL (14) chloride 100 mmol/ L 96-106 normal Not Available [facility] ([facility]) [address] [place], [address], 11/15/2024 10:05:54 11/14/19 25 11/15/2024 COMP. METAB OLIC PANEL (14) carbon dioxide, total 25 mmol/ L 20-29 normal Not Available [facility] ([facility]) [address] [place], [address], 11/15/2024 10:05:54 11/14/19 25 11/15/2024 COMP. METAB OLIC PANEL (14) calcium 9.1 mg/dL 8.7-10 .3 normal Not Available [facility] ([facility]) [address] [place], [address], 11/15/2024 10:05:54 11/14/19 25 11/15/2024 COMP. METAB OLIC PANEL (14) protein, total 6.7 g/dL 6.0-8. 5 normal Not Available [facility] ([facility]) [address] [facility] [place], [address], 11/15/2024 10:05:54 11/14/19 25 11/15/2024 COMP. METAB OLIC PANEL (14) albumin 4.6 g/dL 3.7-4. 7 normal Not Available [facility] ([facility]) [address] [facility] [place], [address], 11/15/2024 10:05:54 11/14/19 25 11/15/2024 COMP. METAB OLIC PANEL (14) globulin, total 2.1 g/dL 1.5-4. 5 Not Available [facility] ([facility]) [address] [facility] [place], [address], 11/15/2024 10:05:54 11/14/19 25 11/15/2024 COMP. METAB OLIC PANEL (14) bilirubin, total 0.3 mg/dL 0.0-1. 2 normal Not Available [facility] ([facility]) [address] [facility] [place], [address], 11/15/2024 10:05:54 11/14/19 25 11/15/2024 COMP. METAB OLIC PANEL (14) alkaline phosphatase 92 IU/L 44-121 normal Not Available [facility] ([facility]) [address] [facility] [place], [address], 11/15/2024 10:05:54 11/14/19 25 11/15/2024 COMP. METAB OLIC PANEL (14) AST (SGOT) 17 IU/L 0-40 normal Not Available [facility] ([facility]) [address] [facility] [place], [address], 11/15/2024 10:05:54 11/14/19 25 11/15/2024 COMP. METAB OLIC PANEL (14) ALT (SGPT) 11 IU/L 0-32 normal Not Available [facility] ([facility]) [address] [place], [address], 11/15/2024 10:05:54 11/14/1911/15/2024 CBC, PLATE LET, NO DIFFE RENTI AL WBC 16.5 x10e3 /uL 3.4-10 .8 above high normal Not Available [facility] ([facility]) [address] [place], [address], 11/15/2024 10:05:54 11/14/1911/15/2024 CBC, PLATE LET, NO DIFFE RENTI AL RBC 5.03 x10e6 /uL 3.77-5 .28 normal Not Available [facility] ([facility]) [address] [place], [address], 11/15/2024 10:05:54 11/14/1911/15/2024 CBC, PLATE LET, NO DIFFE RENTI AL hemoglobin 14.7 g/dL 11.1-1 5.9 normal Not Available [facility] ([facility]) [address] [place], [address], 11/15/2024 10:05:54 11/14/1911/15/2024 CBC, PLATE LET, NO DIFFE RENTI AL hematocrit 46.1 % 34.0-4 6.6 normal Not Available [facility] ([facility]) [address] [place], [address], 11/15/2024 10:05:54 11/14/1911/15/2024 CBC, PLATE LET, NO DIFFE RENTI AL MCV 92 fL 79-97 normal Not Available [facility] ([facility]) [address] [place], [address], 11/15/2024 10:05:54 02/24/20 25 11/15/2024 CBC, PLATE LET, NO DIFFE RENTI AL MCH 29.2 pg 26.6-3 3.0 normal Not Available [facility] ([facility]) [address] [place], [address], 11/15/2024 10:05:54 11/14/19 25 11/15/2024 CBC, PLATE LET, NO DIFFE RENTI AL MCHC 31.9 g/dL 31.5-3 5.7 normal Not Available [facility] ([facility]) [address] [place], [address], 11/15/2024 10:05:54 11/14/19 25 11/15/2024 CBC, PLATE LET, NO DIFFE RENTI AL RDW 13.1 % 11.7-1 5.4 Not Available [facility] ([facility]) [address] [place], [address], 11/15/2024 10:05:54 11/14/19 25 11/15/2024 CBC, PLATE LET, NO DIFFE RENTI AL platelets 265 x10e3 /uL 150-45 0 normal Not Available [facility] ([facility]) [address] [place], [address], 11/15/2024 10:05:54 11/14/19 25 11/15/2024 CBC, PLATE LET, NO DIFFE RENTI AL NRBC SWATCHER Not Available [facility] ([facility]) [address] [place], [address], 11/15/2024 10:05:54 11/14/19 25 11/15/2024 LIPID PROFI LE cholesterol, total 150 mg/dL 100-19 9 normal Not Available [facility] ([facility]) [address] [place], [address], 11/15/2024 10:05:55 11/14/19 25 11/15/2024 LIPID PROFI LE triglyceride s 241 mg/dL 0-149 above high normal Not Available [facility] ([facility]) [address] [place], [address], 11/15/2024 10:05:55 11/14/19 25 11/15/2024 LIPID PROFI LE HDL cholesterol 37 mg/dL >39 below low normal Not Available [facility] ([facility]) [address] [facility], [place], [address], 11/15/2024 10:05:55 11/14/19 25 11/15/2024 LIPID PROFI LE VLDL cholesterol julissa 40 mg/dL 5-40 Not Available [facility] ([facility]) [address] [place], [address], 11/15/2024 10:05:55 11/14/19 25 11/15/2024 LIPID PROFI LE LDL chol calc ([facility]) 73 mg/dL 0-99 Not Available [facility] ([facility]) [address] [facility], [place], [address], 11/15/2024 10:05:55 11/14/19 25 11/15/2024 LIPID PROFI LE LDL calc comment: SWATCHER Not Available [facility] ([facility]) [address] [facility], [place], [address], 11/15/2024 10:05:55 11/14/19 25 11/15/2024 TSH RFX ON ABNOR MAL TO FREE T4 TSH 2.030 uIU/m L 0.450- 4.500 normal Not Available [facility] ([facility]) [address] [place], [address], 11/15/2024 10:05:56 02/11/20 24 02/11/2024 tread mill nucle ar stres s test (PROC ) No observ ation record ed. [email or web address] Not Available 2023 11:51:14 02/17/20 24 02/11/2024 tread mill nucle ar stres s test (PROC ) No observ ation record ed. [email or web address] [facility] [address] [place], [address], 02/17/2024 13:06:24 03/09/20 24 12/21/[address] or place ment (PROC ) No observ ation record ed. [facility] [address], [place], [address], 03/09/2024 14:10:44 06/21/20 24 06/21/2024 US, rosalind t, limit ed PROCED URE: MM Digita l Mammo Bilate ral, US Breast Left Limite d INDICA TION: Screen ing for breast cancer . Patien t had an area of pain in the inferi or left breast , that has resolv ed. 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 COMPAR SURY: Multip le prior studie s dating back to 021. TECHNI QUE: Full-f ield digita l CC and MLO 3D tomosy nthesi s images of both breast s were acquir ed. Comput er-aid ed detect ion (CAD) was utiliz ed in the interp retati on of this study. In additi on, target ed ultras ound of the left breast was perfor med. DENSIT Y: There are scatte red areas of fibrog landul ar densit y. FINDIN GS: No suspic ious masses , suspic ious microc alcifi cation s, or areas of maddy ectura l distor tion are seen in either breast to sugges t malign gavin. Scatte red benign -appea ring calcif icatio ns bilate ral are unchan ged. Target ed ultras ound of the left breast was perfor med. No sonogr aphic abnorm ality is seen at area of pain indica mirna by the patien t gabriella schmidt with the 5 to 7:00 positi on, 5-9 cm from the nipple . IMPRES DANETTE: No mammog raphic or sonogr aphic eviden ce of malign gavin. RECOMM ENDATI ON: Annual mammog raphic screen ing. Recomm end clinic al follow -up for the area of pain in the left breast , if the pain return s and change s in charac ter, or patien t feels a new mass, the patien t can be reeval uated. BI-RAD S: 2 (Benig n) Lay letter mailed to traci connell WSN: [id number] Orderi Physic yang: Leigh Alfred Dictat ed By: Bryce Woods MD Dictat ed Date/T rashaun: 2:56 pm Review ed By: Bryce Woods MD Signed By: Bryce Woods MD Signed Date/T rashaun: 2:56 pm Transc ribed By: CASH Transc ribed Date/T rashaun: 2:37 pm Patiajay connell Class: 5 [id number] [facility] (Outpt Imaging) [address] [place] [address], [id number], 06/21/2024 15:29:42 06/21/20 24 06/21/2024 mm digit al mammo bilat eral PROCED URE: MM Digita l Mammo Bilate ral, US Breast Left Limite d INDICA TION: Screen ing for breast cancer . Traci connell had an area of pain in the inferi or left breast , that has resolv ed. 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 COMPAR SURY: Multip le prior studie s dating back to 021. TECHNI QUE: Full-f ield digita l CC and MLO 3D tomosy nthesi s images of both breast s were acquir ed. Comput er-aid ed detect ion (CAD) was utiliz ed in the interp retati on of this study. In additi on, target ed ultras ound of the left breast was perfor med. DENSIT Y: There are scatte red areas of fibrog landul ar densit y. FINDIN GS: No suspic ious masses , suspic ious microc alcifi cation s, or areas of maddy ectura l distor tion are seen in either breast to sugges t malign gavin. Scatte red benign -appea ring calcif icatio ns bilate ral are unchan ged. Target ed ultras ound of the left breast was perfor med. No sonogr aphic abnorm ality is seen at area of pain indica mirna by the traci schmidt with the 5 to 7:00 positi on, 5-9 cm from the nipple . IMPRES DANETTE: No mammog raphic or sonogr aphic eviden ce of malign gavin. RECOMM ENDATI ON: Annual mammog raphic screen ing. Recomm end clinic al follow -up for the area of pain in the left breast , if the pain return s and change s in charac ter, or traci connell feels a new mass, the patien t can be reeval uated. BI-RAD S: 2 (Benig n) Lay letter mailed to traci connell WSN: [id number] Orderi ng Physic yang: Leigh Alfred le Dictat ed By: Bryce Woods MD Dictat ed Date/T rashaun: 2:56 pm Review ed By: Bryce Woods MD Signed By: Bryce Woods MD Signed Date/T rashaun: 2:56 pm Transc ribed By: CSB Transc riptio n Date/T rashaun: 2:37 pm Birads : Traci connell Class: 5 [id number] [facility] (Outpt Imaging) [address] [place] [address], [id number], 06/21/2024 15:29:41 06/21/2006/21/2024 US, breas t, unila teral , compl ete No observ ation record ed. [facility] Radiology Central Scheduling [address] [place] [address], [id number], 06/22/2024 13:46:32 Result Notes None recorded. Problems Name Problem SNOMED Code Status Onset Date Resolution Date Notes Provider Name and Address Organization Details Recorded Time Hyperlipidemia 98664013 Active 2023 Leigh Alfred NP [address] [facility] [address], [place], [address], [place] [facility] 11:03:45 History of malignant neoplasm of colon 521168659 Active 2024 Leigh Alfred NP [address] [facility] [address], [address], [place] [facility] 5 14:53:12 Essential hypertension 31405824 Active Leigh Alfred NP [address] [facility] [address], [place], [address], [place] [facility] 2 13:34:04 Hypothyroidism 14050735 Active Leigh Alfred NP 55 [facility] [address], [place], [address], [place] [facility] 2 13:34:21 Chronic lymphoid leukemia, disease 42385011 Active Leigh Alfred NP [address] [facility], [facility] [address], [place], [address], [place] [facility] 2 13:34:35 Major depressive disorder 963338701 Active Leigh Alfred NP 55 [facility] [address], [place], [address], [place] [facility] 2 13:34:56 Gastroesophage al reflux disease 502989632 Active Leigh Alfred NP 55 [facility] [address], [place], [address], [place] [facility] 2 13:35:33 Chronic back pain 278224436 Active Leigh Alfred NP 55 [facility] [address], [place], [address], [place] [facility] 2 13:37:11 Pain in left lower limb 934638763 Active 2021 Leigh Alfred NP [address] [facility] [address], [place], [address], [place] [facility] 2 13:39:56 Insomnia 141507958 Active Leigh Alfred NP [address] [facility] [address], [place], [address], [place] [facility] 2 13:49:27 Irritable bowel syndrome 23427595 Miguel Alfred NP [address] [facility] [address], [place], [address], [place] [facility] 2 13:49:44 Problem Notes None recorded. Procedures Surgical History Date Name Laterality Status Provider Name and Address Organization Details Recorded Time 09/18/20 24 Date of Last Colonoscopy completed Cleopatra Jimenez [place] [facility] 06/20/2024 10:18:30 06/22/20 23 Most Recent Mammogram completed Paola Jayro [address] [facility], [facility] [address], [place], [address], [place] [facility] 11/27/2023 09:45:22 Imaging Results Imaging Date Name Status LastModified by Organiz ation Details LastModified Time 02/11/2024 treadmill nuclear stress test (PROC) completed [facility] Information not available 02/18/2024 11:51:14 02/11/2024 treadmill nuclear stress test (PROC) completed [facility] Diagnostic Scheduling [address] [place], [id number], 02/17/2024 13:06:24 12/21/2023 holter monitor placement (PROC) completed [facility] [address] [facility] [address], [place], [id number], 03/09/2024 14:10:44 06/21/2024 US, breast, limited completed [address] (Outpt Imaging) [address] [place], [address], 06/21/2024 15:29:42 06/21/2024 mm digital mammo bilateral completed [address] (Outpt Imaging) [address] [place], [id number], 06/21/2024 15:29:41 06/21/2024 US, breast, unilateral, complete completed [facility] Central Scheduling [address] [place], [id number], 06/22/2024 13:46:32 Procedure Notes None recorded. Medical Equipment None Reported. Allergies Allergen ID Allergen Name Allergen Category Reaction Reaction Severity Criticality Documentation Date Start Date Code Code System Note Provider Name and Address Organization Details Recorded Time 964 codeine medicatio n nausea Not available Not available 02/26/2022 2670 RxNorm Marlon Gonsalez [address] [facility], [address], [place], [address], [place] [facility] 06/08/202 2 13:23:49 965 Substance with sulfonami de structure and antibacte rial mechanism of action (substanc e) medicatio n nausea Not available Not available 02/26/2022 [address]27[address] 8003 SNOMED Lelande [place] [address] [facility], [facility] [address], [place], [address], [place] [facility] 2 13:24:26 966 propoxyph silas hydrochlo ride medicatio n nausea Not available Not available 02/26/2022 19070 RxNorm Dorie [place] [address] [facility], [facility] [address], [place], [address], [place] [facility] 2 13:25:43 967 hydralazi ne medicatio n chest pain Not available Not available 02/26/2022 5470 RxNorm Doriviviana [address], [facility] [address], [place], [address], [place] [facility] 2 13:26:19 Medications Name Sig Start Date Stop [...] height Body mass index (BMI) Body weight Oxygen saturation Oxygen saturation in Arterial blood by Pulse oximetry Heart rate Systolic blood pressure Diastolic blood pressure Provider Name and Address Organization Details Last Updated DateTime 4 158.75 cm 29.5 kg/m2 86086.1 5 g 99 % 99 % 83 /min 154 mm[Hg] 72 mm[Hg] Cleopatra Leonidlana lili [facility] 4 09:53:37 Date Recorded Heart rate Systolic blood pressure Diastolic blood pressure Provider Name and Address Organization Details Last Updated DateTime 01/07/2024 76 /min 148 mm[Hg] 79 mm[Hg] Not Available [facility] 01/07/2024 17:39:04 Date Recorded Systolic blood pressure Diastolic blood pressure Provider Name and Address Organization Details Last Updated DateTime 01/07/2024 138 mm[Hg] 66 mm[Hg] Leigh Alfred, SWATCHER [address] [facility], [facility] [address], [place], [address], [facility] Primary 01/07/2024 10:17:12 Date Recorded Heart rate Heart rate Systolic blood pressure Diastolic blood pressure Systolic blood pressure Diastolic blood pressure Provider Name and Address Organization Details Last Updated DateTime 4 77 /min 80 /min 129 mm[Hg] 46 mm[Hg] 157 mm[Hg] 87 mm[Hg] Not Available [facility] 4 09:55:01 Date Recorded Heart rate Systolic blood pressure Diastolic blood pressure Provider Name and Address Organization Details Last Updated DateTime 01/09/2024 71 /min 142 mm[Hg] 57 mm[Hg] Not Available [facility] 01/09/2024 10:07:08 Date Recorded Heart rate Heart rate Heart rate Systolic blood pressure Diastolic blood pressure Systolic blood pressure Diastolic blood pressure Systolic blood pressure Diastolic blood pressure Provider Name and Address Organization Details Last Updated DateTime 4 83 /min 79 /min 75 /min 155 mm[Hg] 54 mm[Hg] 115 mm[Hg] 72 mm[Hg] 99 mm[Hg] 59 mm[Hg] Not Available [facility] 4 11:57:05 Date Recorded Heart rate Heart rate Systolic blood pressure Diastolic blood pressure Systolic blood pressure Diastolic blood pressure Provider Name and Address Organization Details Last Updated DateTime 4 76 /min 80 /min 113 mm[Hg] 62 mm[Hg] 139 mm[Hg] 89 mm[Hg] Not Available [facility] 4 21:04:06 Date Recorded Heart rate Systolic blood pressure Diastolic blood pressure Provider Name and Address Organization Details Last Updated DateTime 01/14/2024 66 /min 128 mm[Hg] 45 mm[Hg] Not Available [facility] 01/14/2024 07:45:02 Date Recorded Heart rate Systolic blood pressure Diastolic blood pressure Provider Name and Address Organization Details Last Updated DateTime 01/13/2024 89 /min 121 mm[Hg] 47 mm[Hg] Not Available [facility] 01/14/2024 07:45:07 Date Recorded Heart rate Systolic blood pressure Diastolic blood pressure Provider Name and Address Organization Details Last Updated DateTime 01/15/2024 65 /min 125 mm[Hg] 74 mm[Hg] Not Available [facility] 01/15/2024 06:44:03 Date Recorded Heart rate Systolic blood pressure Diastolic blood pressure Provider Name and Address Organization Details Last Updated DateTime 01/16/2024 72 /min 137 mm[Hg] 99 mm[Hg] Not Available [facility] 01/16/2024 10:10:02 Date Recorded Heart rate Systolic blood pressure Diastolic blood pressure Provider Name and Address Organization Details Last Updated DateTime 01/28/2024 84 /min 138 mm[Hg] 78 mm[Hg] Not Available [facility] 01/28/2024 08:23:03 Date Recorded Heart rate Heart rate Systolic blood pressure Diastolic blood pressure Systolic blood pressure Diastolic blood pressure Provider Name and Address Organization Details Last Updated DateTime 88 /min 84 /min 121 mm[Hg] 39 mm[Hg] 127 mm[Hg] 71 mm[Hg] Not Available [facility] 4 11:48:04 Date Recorded Heart rate Heart rate Systolic blood pressure Diastolic blood pressure Systolic blood pressure Diastolic blood pressure Provider Name and Address Organization Details Last Updated DateTime 4 86 /min 79 /min 126 mm[Hg] 86 mm[Hg] 130 mm[Hg] 90 mm[Hg] Not Available [facility] 22:17:05 Date Recorded Heart rate Systolic blood pressure Diastolic blood pressure Provider Name and Address Organization Details Last Updated DateTime 02/01/2024 78 /min 127 mm[Hg] 64 mm[Hg] Not Available [facility] 02/01/2024 21:23:03 Date Recorded Heart rate Systolic blood pressure Diastolic blood pressure Provider Name and Address Organization Details Last Updated DateTime 02/02/2024 93 /min 141 mm[Hg] 58 mm[Hg] Not Available [facility] 02/04/2024 11:03:03 Date Recorded Heart rate Systolic blood pressure Diastolic blood pressure Provider Name and Address Organization Details Last Updated DateTime 02/04/2024 84 /min 126 mm[Hg] 78 mm[Hg] Not Available [facility] 02/04/2024 11:03:06 Date Recorded Heart rate Systolic blood pressure Diastolic blood pressure Provider Name and Address Organization Details Last Updated DateTime 02/05/2024 71 /min 112 mm[Hg] 61 mm[Hg] Not Available [facility] 02/05/2024 07:22:02 Date Recorded Heart rate Systolic blood pressure Diastolic blood pressure Provider Name and Address Organization Details Last Updated DateTime 02/06/2024 75 /min 118 mm[Hg] 71 mm[Hg] Not Available [facility] 02/06/2024 19:34:04 Date Recorded Heart rate Systolic blood pressure Diastolic blood pressure Provider Name and Address Organization Details Last Updated DateTime 02/07/2024 74 /min 125 mm[Hg] 87 mm[Hg] Not Available [facility] 02/08/2024 07:44:05 Date Recorded Heart rate Heart rate Heart rate Heart rate Systolic blood pressure Diastolic blood pressure Systolic blood pressure Diastolic blood pressure Systolic blood pressure Diastolic blood pressure Systolic blood pressure Diastolic blood pressure Provider Name and Address Organization Details Last Updated DateTime 83 /min 86 /min 92 /min 77 /min 123 mm[Hg] 36 mm[Hg] 154 mm[Hg] 96 mm[Hg] 118 mm[Hg] 37 mm[Hg] 108 mm[Hg] 40 mm[Hg] Not Available [facility] 06:50:04 Date Recorded Heart rate Systolic blood pressure Diastolic blood pressure Provider Name and Address Organization Details Last Updated DateTime 02/09/2024 71 /min 130 mm[Hg] 81 mm[Hg] Not Available [facility] 02/09/2024 06:50:06 Date Recorded Heart rate Systolic blood pressure Diastolic blood pressure Provider Name and Address Organization Details Last Updated DateTime 02/12/2024 64 /min 124 mm[Hg] 50 mm[Hg] Not Available [facility] 02/12/2024 06:33:04 Date Recorded Heart rate Systolic blood pressure Diastolic blood pressure Provider Name and Address Organization Details Last Updated DateTime 02/13/2024 76 /min 124 mm[Hg] 71 mm[Hg] Not Available [facility] 02/13/2024 11:29:03 Date Recorded Heart rate Systolic blood pressure Diastolic blood pressure Provider Name and Address Organization Details Last Updated DateTime 02/14/2024 93 /min 132 mm[Hg] 53 mm[Hg] Not Available [facility] 02/15/2024 11:01:05 Date Recorded Heart rate Systolic blood pressure Diastolic blood pressure Provider Name and Address Organization Details Last Updated DateTime 02/15/2024 87 /min 150 mm[Hg] 56 mm[Hg] Not Available [facility] 02/15/2024 11:01:05 Date Recorded Heart rate Systolic blood pressure Diastolic blood pressure Provider Name and Address Organization Details Last Updated DateTime 02/16/2024 75 /min 127 mm[Hg] 70 mm[Hg] Not Available [facility] 02/16/2024 07:36:01 Date Recorded Heart rate Systolic blood pressure Diastolic blood pressure Provider Name and Address Organization Details Last Updated DateTime 02/17/2024 79 /min 125 mm[Hg] 87 mm[Hg] Not Available [facility] 02/17/2024 07:43:07 Date Recorded Heart rate Systolic blood pressure Diastolic blood pressure Provider Name and Address Organization Details Last Updated DateTime 02/21/2024 67 /min 145 mm[Hg] 86 mm[Hg] Not Available [facility] 02/22/2024 07:42:05 Date Recorded Heart rate Heart rate Systolic blood pressure Diastolic blood pressure Systolic blood pressure Diastolic blood pressure Provider Name and Address Organization Details Last Updated DateTime 73 /min 77 /min 125 mm[Hg] 103 mm[Hg] 133 mm[Hg] 46 mm[Hg] Not Available [facility] 08:05:06 Date Recorded Heart rate Systolic blood pressure Diastolic blood pressure Provider Name and Address Organization Details Last Updated DateTime 02/23/2024 76 /min 116 mm[Hg] 47 mm[Hg] Not Available [facility] 02/23/2024 07:45:08 Date Recorded Heart rate Systolic blood pressure Diastolic blood pressure Provider Name and Address Organization Details Last Updated DateTime 02/25/2024 77 /min 118 mm[Hg] 45 mm[Hg] Not Available [facility] 02/25/2024 07:38:01 Date Recorded Heart rate Systolic blood pressure Diastolic blood pressure Provider Name and Address Organization Details Last Updated DateTime 02/24/2024 76 /min 123 mm[Hg] 71 mm[Hg] Not Available [facility] 02/25/2024 07:38:06 Date Recorded Heart rate Systolic blood pressure Diastolic blood pressure Provider Name and Address Organization Details Last Updated DateTime 02/26/2024 83 /min 137 mm[Hg] 89 mm[Hg] Not Available [facility] 02/26/2024 16:10:07 Date Recorded Heart rate Systolic blood pressure Diastolic blood pressure Provider Name and Address Organization Details Last Updated DateTime 02/27/2024 73 /min 124 mm[Hg] 43 mm[Hg] Not Available [facility] 02/27/2024 09:10:07 Date Recorded Heart rate Systolic blood pressure Diastolic blood pressure Provider Name and Address Organization Details Last Updated DateTime 02/29/2024 71 /min 125 mm[Hg] 46 mm[Hg] Not Available [facility] 03/01/2024 07:22:01 Date Recorded Heart rate Systolic blood pressure Diastolic blood pressure Provider Name and Address Organization Details Last Updated DateTime 03/01/2024 78 /min 126 mm[Hg] 52 mm[Hg] Not Available [facility] 03/01/2024 07:22:03 Date Recorded Heart rate Systolic blood pressure Diastolic blood pressure Provider Name and Address Organization Details Last Updated DateTime 03/04/2024 80 /min 129 mm[Hg] 47 mm[Hg] Not Available [facility] 03/04/2024 10:52:07 Date Recorded Heart rate Heart rate Systolic blood pressure Diastolic blood pressure Systolic blood pressure Diastolic blood pressure Provider Name and Address Organization Details Last Updated DateTime 4 71 /min 87 /min 161 mm[Hg] 68 mm[Hg] 131 mm[Hg] 43 mm[Hg] Not Available [facility] 4 08:59:03 Date Recorded Heart rate Systolic blood pressure Diastolic blood pressure Provider Name and Address Organization Details Last Updated DateTime 03/07/2024 85 /min 125 mm[Hg] 46 mm[Hg] Not Available [facility] 03/07/2024 08:58:06 Date Recorded Heart rate Heart rate Systolic blood pressure Diastolic blood pressure Systolic blood pressure Diastolic blood pressure Provider Name and Address Organization Details Last Updated DateTime 4 72 /min 77 /min 113 mm[Hg] 48 mm[Hg] 114 mm[Hg] 39 mm[Hg] Not Available [facility] 4 08:27:05 Date Recorded Heart rate Systolic blood pressure Diastolic blood pressure Provider Name and Address Organization Details Last Updated DateTime 03/09/2024 73 /min 129 mm[Hg] 58 mm[Hg] Not Available [facility] 03/09/2024 09:00:07 Date Recorded Heart rate Heart rate Systolic blood pressure Diastolic blood pressure Systolic blood pressure Diastolic blood pressure Provider Name and Address Organization Details Last Updated DateTime 4 78 /min 91 /min 126 mm[Hg] 39 mm[Hg] 129 mm[Hg] 50 mm[Hg] Not Available [facility] 4 11:35:06 Date Recorded Heart rate Systolic blood pressure Diastolic blood pressure Provider Name and Address Organization Details Last Updated DateTime 03/11/2024 79 /min 123 mm[Hg] 65 mm[Hg] Not Available [facility] 03/11/2024 11:35:04 Date Recorded Heart rate Systolic blood pressure Diastolic blood pressure Provider Name and Address Organization Details Last Updated DateTime 03/12/2024 96 /min 130 mm[Hg] 46 mm[Hg] Not Available [facility] 03/12/2024 11:09:02 Date Recorded Heart rate Heart rate Heart rate Heart rate Systolic blood pressure Diastolic blood pressure Systolic blood pressure Diastolic blood pressure Systolic blood pressure Diastolic blood pressure Systolic blood pressure Diastolic blood pressure Provider Name and Address Organization Details Last Updated DateTime 4 93 /min 98 /min 89 /min 77 /min 118 mm[Hg] 49 mm[Hg] 115 mm[Hg] 43 mm[Hg] 118 mm[Hg] 35 mm[Hg] 132 mm[Hg] 52 mm[Hg] Not Available [facility] 4 22:24:01 Date Recorded Heart rate Heart rate Heart rate Systolic blood pressure Diastolic blood pressure Systolic blood pressure Diastolic blood pressure Systolic blood pressure Diastolic blood pressure Provider Name and Address Organization Details Last Updated DateTime 4 79 /min 76 /min 80 /min 115 mm[Hg] 75 mm[Hg] 161 mm[Hg] 58 mm[Hg] 140 mm[Hg] 61 mm[Hg] Not Available [facility] 4 18:56:07 Date Recorded Heart rate Heart rate Systolic blood pressure Diastolic blood pressure Systolic blood pressure Diastolic blood pressure Provider Name and Address Organization Details Last Updated DateTime 4 90 /min 88 /min 111 mm[Hg] 49 mm[Hg] 132 mm[Hg] 78 mm[Hg] Not Available [facility] 4 11:43:05 Date Recorded Heart rate Systolic blood pressure Diastolic blood pressure Provider Name and Address Organization Details Last Updated DateTime 03/17/2024 77 /min 141 mm[Hg] 55 mm[Hg] Not Available [facility] 03/17/2024 10:32:06 Date Recorded Heart rate Systolic blood pressure Diastolic blood pressure Provider Name and Address Organization Details Last Updated DateTime 03/16/2024 78 /min 150 mm[Hg] 57 mm[Hg] Not Available [facility] 03/17/2024 10:32:07 Date Recorded Heart rate Systolic blood pressure Diastolic blood pressure Provider Name and Address Organization Details Last Updated DateTime 03/18/2024 71 /min 152 mm[Hg] 60 mm[Hg] Not Available [facility] 03/18/2024 12:31:10 Date Recorded Heart rate Systolic blood pressure Diastolic blood pressure Provider Name and Address Organization Details Last Updated DateTime 03/19/2024 82 /min 127 mm[Hg] 78 mm[Hg] Not Available [facility] 03/19/2024 14:00:01 Date Recorded Heart rate Systolic blood pressure Diastolic blood pressure Provider Name and Address Organization Details Last Updated DateTime 03/23/2024 88 /min 141 mm[Hg] 52 mm[Hg] Not Available [facility] 03/23/2024 11:46:04 Date Recorded Heart rate Systolic blood pressure Diastolic blood pressure Provider Name and Address Organization Details Last Updated DateTime 03/21/2024 99 /min 143 mm[Hg] 49 mm[Hg] Not Available [facility] 03/23/2024 11:46:05 Date Recorded Heart rate Systolic blood pressure Diastolic blood pressure Provider Name and Address Organization Details Last Updated DateTime 03/25/2024 90 /min 137 mm[Hg] 51 mm[Hg] Not Available [facility] 03/25/2024 13:05:09 Date Recorded Heart rate Systolic blood pressure Diastolic blood pressure Provider Name and Address Organization Details Last Updated DateTime 03/26/2024 97 /min 126 mm[Hg] 48 mm[Hg] Not Available [facility] 03/26/2024 12:18:01 Date Recorded Heart rate Heart rate Systolic blood pressure Diastolic blood pressure Systolic blood pressure Diastolic blood pressure Provider Name and Address Organization Details Last Updated DateTime 85 /min 91 /min 106 mm[Hg] 41 mm[Hg] 148 mm[Hg] 61 mm[Hg] Not Available [facility] 14:47:07 Date Recorded Heart rate Systolic blood pressure Diastolic blood pressure Provider Name and Address Organization Details Last Updated DateTime 03/27/2024 79 /min 124 mm[Hg] 43 mm[Hg] Not Available [facility] 03/28/2024 11:34:08 Date Recorded Heart rate Systolic blood pressure Diastolic blood pressure Provider Name and Address Organization Details Last Updated DateTime 03/29/2024 75 /min 112 mm[Hg] 62 mm[Hg] Not Available [facility] 03/29/2024 06:59:02 Date Recorded Heart rate Systolic blood pressure Diastolic blood pressure Provider Name and Address Organization Details Last Updated DateTime 03/30/2024 77 /min 107 mm[Hg] 63 mm[Hg] Not Available [facility] 03/31/2024 12:39:01 Date Recorded Heart rate Systolic blood pressure Diastolic blood pressure Provider Name and Address Organization Details Last Updated DateTime 03/31/2024 80 /min 127 mm[Hg] 92 mm[Hg] Not Available [facility] 03/31/2024 12:39:03 Date Recorded Heart rate Systolic blood pressure Diastolic blood pressure Provider Name and Address Organization Details Last Updated DateTime 04/01/2024 71 /min 133 mm[Hg] 81 mm[Hg] Not Available [facility] 04/01/2024 11:55:02 Date Recorded Heart rate Systolic blood pressure Diastolic blood pressure Provider Name and Address Organization Details Last Updated DateTime 04/02/2024 77 /min 139 mm[Hg] 93 mm[Hg] Not Available [facility] 04/02/2024 10:05:10 Date Recorded Heart rate Systolic blood pressure Diastolic blood pressure Provider Name and Address Organization Details Last Updated DateTime 04/03/2024 68 /min 148 mm[Hg] 57 mm[Hg] Not Available [facility] 04/03/2024 09:19:03 Date Recorded Heart rate Systolic blood pressure Diastolic blood pressure Provider Name and Address Organization Details Last Updated DateTime 04/04/2024 79 /min 156 mm[Hg] 62 mm[Hg] Not Available [facility] 04/04/2024 08:58:04 Date Recorded Body height Heart rate Body mass index (BMI) Body weight Oxygen saturation Oxygen saturation in Arterial blood by Pulse oximetry Systolic blood pressure Diastolic blood pressure Provider Name and Address Organization Details Last Updated DateTime 158.75 cm 82 /min 29.7 kg/m2 49908.7 4 g 97 % 97 % 138 mm[Hg] 80 mm[Hg] Marlon Gonsalez [address] [facility] [address] [place], [address], [place] [facility] 4 11:03:44 Date Recorded Heart rate Systolic blood pressure Diastolic blood pressure Provider Name and Address Organization Details Last Updated DateTime 04/08/2024 83 /min 135 mm[Hg] 50 mm[Hg] Not Available [facility] 04/09/2024 15:49:05 Date Recorded Heart rate Systolic blood pressure Diastolic blood pressure Provider Name and Address Organization Details Last Updated DateTime 04/09/2024 91 /min 141 mm[Hg] 57 mm[Hg] Not Available [facility] 04/09/2024 15:49:07 Date Recorded Heart rate Systolic blood pressure Diastolic blood pressure Provider Name and Address Organization Details Last Updated DateTime 04/10/2024 74 /min 150 mm[Hg] 56 mm[Hg] Not Available [facility] 04/10/2024 09:04:05 Date Recorded Heart rate Heart rate Systolic blood pressure Diastolic blood pressure Systolic blood pressure Diastolic blood pressure Provider Name and Address Organization Details Last Updated DateTime 72 /min 71 /min 166 mm[Hg] 85 mm[Hg] 132 mm[Hg] 50 mm[Hg] Not Available [facility] 09:47:03 Date Recorded Heart rate Systolic blood pressure Diastolic blood pressure Provider Name and Address Organization Details Last Updated DateTime 04/12/2024 85 /min 130 mm[Hg] 50 mm[Hg] Not Available [facility] 04/12/2024 09:47:02 Date Recorded Heart rate Systolic blood pressure Diastolic blood pressure Provider Name and Address Organization Details Last Updated DateTime 04/15/2024 79 /min 147 mm[Hg] 64 mm[Hg] Not Available [facility] 04/15/2024 09:07:10 Date Recorded Heart rate Systolic blood pressure Diastolic blood pressure Provider Name and Address Organization Details Last Updated DateTime 04/16/2024 83 /min 141 mm[Hg] 58 mm[Hg] Not Available [facility] 04/18/2024 12:32:04 Date Recorded Heart rate Systolic blood pressure Diastolic blood pressure Provider Name and Address Organization Details Last Updated DateTime 04/18/2024 98 /min 124 mm[Hg] 52 mm[Hg] Not Available [facility] 04/18/2024 12:32:05 Date Recorded Heart rate Systolic blood pressure Diastolic blood pressure Provider Name and Address Organization Details Last Updated DateTime 04/19/2024 78 /min 125 mm[Hg] 52 mm[Hg] Not Available [facility] 04/19/2024 07:51:04 Date Recorded Heart rate Heart rate Systolic blood pressure Diastolic blood pressure Systolic blood pressure Diastolic blood pressure Provider Name and Address Organization Details Last Updated DateTime 74 /min 91 /min 138 mm[Hg] 96 mm[Hg] 140 mm[Hg] 53 mm[Hg] Not Available [facility] 11:45:06 Date Recorded Heart rate Systolic blood pressure Diastolic blood pressure Provider Name and Address Organization Details Last Updated DateTime 04/22/2024 77 /min 118 mm[Hg] 71 mm[Hg] Not Available [facility] 04/22/2024 12:12:01 Date Recorded Heart rate Systolic blood pressure Diastolic blood pressure Provider Name and Address Organization Details Last Updated DateTime 04/21/2024 96 /min 127 mm[Hg] 45 mm[Hg] Not Available [facility] 04/22/2024 12:12:05 Date Recorded Heart rate Systolic blood pressure Diastolic blood pressure Provider Name and Address Organization Details Last Updated DateTime 04/24/2024 80 /min 127 mm[Hg] 46 mm[Hg] Not Available [facility] 04/24/2024 10:50:06 Date Recorded Heart rate Systolic blood pressure Diastolic blood pressure Provider Name and Address Organization Details Last Updated DateTime 04/25/2024 79 /min 135 mm[Hg] 51 mm[Hg] Not Available [facility] 04/25/2024 13:31:06 Date Recorded Heart rate Systolic blood pressure Diastolic blood pressure Provider Name and Address Organization Details Last Updated DateTime 04/28/2024 89 /min 154 mm[Hg] 62 mm[Hg] Not Available [facility] 04/28/2024 09:44:03 Date Recorded Heart rate Systolic blood pressure Diastolic blood pressure Provider Name and Address Organization Details Last Updated DateTime 04/26/2024 74 /min 133 mm[Hg] 55 mm[Hg] Not Available [facility] 04/28/2024 09:44:04 Date Recorded Heart rate Systolic blood pressure Diastolic blood pressure Provider Name and Address Organization Details Last Updated DateTime 04/29/2024 103 /min 148 mm[Hg] 64 mm[Hg] Not Available [facility] 04/29/2024 11:23:02 Date Recorded Heart rate Systolic blood pressure Diastolic blood pressure Provider Name and Address Organization Details Last Updated DateTime 04/30/2024 94 /min 154 mm[Hg] 52 mm[Hg] Not Available [facility] 04/30/2024 11:34:04 Date Recorded Heart rate Heart rate Heart rate Systolic blood pressure Diastolic blood pressure Systolic blood pressure Diastolic blood pressure Systolic blood pressure Diastolic blood pressure Provider Name and Address Organization Details Last Updated DateTime 80 /min 81 /min 89 /min 117 mm[Hg] 40 mm[Hg] 111 mm[Hg] 44 mm[Hg] 146 mm[Hg] 48 mm[Hg] Not Available [facility] 08/12/202 4 15:24:03 Date Recorded Heart rate Systolic blood pressure Diastolic blood pressure Provider Name and Address Organization Details Last Updated DateTime 05/01/2024 81 /min 148 mm[Hg] 91 mm[Hg] Not Available [facility] 05/02/2024 11:17:07 Date Recorded Heart rate Systolic blood pressure Diastolic blood pressure Provider Name and Address Organization Details Last Updated DateTime 05/07/2024 98 /min 118 mm[Hg] 79 mm[Hg] Not Available [facility] 05/08/2024 08:41:05 Date Recorded Heart rate Systolic blood pressure Diastolic blood pressure Provider Name and Address Organization Details Last Updated DateTime 05/08/2024 78 /min 131 mm[Hg] 59 mm[Hg] Not Available [facility] 05/08/2024 08:41:06 Date Recorded Heart rate Systolic blood pressure Diastolic blood pressure Provider Name and Address Organization Details Last Updated DateTime 05/09/2024 69 /min 125 mm[Hg] 49 mm[Hg] Not Available [facility] 05/09/2024 07:51:05 Date Recorded Heart rate Systolic blood pressure Diastolic blood pressure Provider Name and Address Organization Details Last Updated DateTime 05/10/2024 71 /min 114 mm[Hg] 45 mm[Hg] Not Available [facility] 05/10/2024 08:29:05 Date Recorded Heart rate Heart rate Systolic blood pressure Diastolic blood pressure Systolic blood pressure Diastolic blood pressure Provider Name and Address Organization Details Last Updated DateTime 4 94 /min 95 /min 124 mm[Hg] 70 mm[Hg] 159 mm[Hg] 70 mm[Hg] Not Available [facility] 15:55:02 Date Recorded Heart rate Systolic blood pressure Diastolic blood pressure Provider Name and Address Organization Details Last Updated DateTime 05/12/2024 91 /min 138 mm[Hg] 54 mm[Hg] Not Available [facility] 05/12/2024 09:30:08 Date Recorded Heart rate Systolic blood pressure Diastolic blood pressure Provider Name and Address Organization Details Last Updated DateTime 05/13/2024 72 /min 130 mm[Hg] 53 mm[Hg] Not Available [facility] 05/13/2024 08:41:04 Date Recorded Heart rate Heart rate Systolic blood pressure Diastolic blood pressure Systolic blood pressure Diastolic blood pressure Provider Name and Address Organization Details Last Updated DateTime 92 /min 71 /min 121 mm[Hg] 48 mm[Hg] 116 mm[Hg] 68 mm[Hg] Not Available [facility] 13:00:03 Date Recorded Heart rate Systolic blood pressure Diastolic blood pressure Provider Name and Address Organization Details Last Updated DateTime 05/17/2024 78 /min 126 mm[Hg] 60 mm[Hg] Not Available [facility] 05/17/2024 07:28:02 Date Recorded Heart rate Systolic blood pressure Diastolic blood pressure Provider Name and Address Organization Details Last Updated DateTime 05/18/2024 88 /min 154 mm[Hg] 66 mm[Hg] Not Available [facility] 05/18/2024 20:26:02 Date Recorded Heart rate Systolic blood pressure Diastolic blood pressure Provider Name and Address Organization Details Last Updated DateTime 05/21/2024 74 /min 138 mm[Hg] 81 mm[Hg] Not Available [facility] 05/21/2024 11:07:05 Date Recorded Heart rate Systolic blood pressure Diastolic blood pressure Provider Name and Address Organization Details Last Updated DateTime 05/19/2024 80 /min 136 mm[Hg] 56 mm[Hg] Not Available [facility] 05/21/2024 11:07:05 Date Recorded Heart rate Systolic blood pressure Diastolic blood pressure Provider Name and Address Organization Details Last Updated DateTime 05/22/2024 87 /min 131 mm[Hg] 57 mm[Hg] Not Available [facility] 05/22/2024 10:18:07 Date Recorded Heart rate Systolic blood pressure Diastolic blood pressure Provider Name and Address Organization Details Last Updated DateTime 05/23/2024 69 /min 123 mm[Hg] 52 mm[Hg] Not Available [facility] 05/23/2024 06:59:02 Date Recorded Heart rate Systolic blood pressure Diastolic blood pressure Provider Name and Address Organization Details Last Updated DateTime 05/25/2024 71 /min 149 mm[Hg] 61 mm[Hg] Not Available [facility] 05/25/2024 09:15:02 Date Recorded Heart rate Systolic blood pressure Diastolic blood pressure Provider Name and Address Organization Details Last Updated DateTime 05/24/2024 95 /min 140 mm[Hg] 86 mm[Hg] Not Available [facility] 05/25/2024 09:15:05 Date Recorded Heart rate Systolic blood pressure Diastolic blood pressure Provider Name and Address Organization Details Last Updated DateTime 05/26/2024 76 /min 156 mm[Hg] 57 mm[Hg] Not Available [facility] 05/26/2024 23:17:03 Date Recorded Heart rate Systolic blood pressure Diastolic blood pressure Provider Name and Address Organization Details Last Updated DateTime 05/28/2024 78 /min 125 mm[Hg] 52 mm[Hg] Not Available [facility] 05/28/2024 08:26:07 Date Recorded Heart rate Systolic blood pressure Diastolic blood pressure Provider Name and Address Organization Details Last Updated DateTime 05/30/2024 88 /min 137 mm[Hg] 58 mm[Hg] Not Available [facility] 05/30/2024 11:05:03 Date Recorded Heart rate Systolic blood pressure Diastolic blood pressure Provider Name and Address Organization Details Last Updated DateTime 05/29/2024 86 /min 142 mm[Hg] 61 mm[Hg] Not Available [facility] 05/30/2024 11:05:05 Date Recorded Heart rate Heart rate Systolic blood pressure Diastolic blood pressure Systolic blood pressure Diastolic blood pressure Provider Name and Address Organization Details Last Updated DateTime 4 88 /min 78 /min 165 mm[Hg] 58 mm[Hg] 134 mm[Hg] 86 mm[Hg] Not Available [facility] 4 09:57:06 Date Recorded Heart rate Systolic blood pressure Diastolic blood pressure Provider Name and Address Organization Details Last Updated DateTime 06/02/2024 89 /min 136 mm[Hg] 56 mm[Hg] Not Available [facility] 06/03/2024 10:51:07 Date Recorded Heart rate Systolic blood pressure Diastolic blood pressure Provider Name and Address Organization Details Last Updated DateTime 06/03/2024 88 /min 141 mm[Hg] 58 mm[Hg] Not Available [facility] 06/03/2024 10:51:07 Date Recorded Heart rate Heart rate Systolic blood pressure Diastolic blood pressure Systolic blood pressure Diastolic blood pressure Provider Name and Address Organization Details Last Updated DateTime 4 75 /min 85 /min 132 mm[Hg] 104 mm[Hg] 136 mm[Hg] 51 mm[Hg] Not Available [facility] 4 12:16:03 Date Recorded Heart rate Systolic blood pressure Diastolic blood pressure Provider Name and Address Organization Details Last Updated DateTime 06/07/2024 78 /min 139 mm[Hg] 92 mm[Hg] Not Available [facility] 06/07/2024 08:42:02 Date Recorded Heart rate Systolic blood pressure Diastolic blood pressure Provider Name and Address Organization Details Last Updated DateTime 06/06/2024 98 /min 113 mm[Hg] 97 mm[Hg] Not Available [facility] 06/07/2024 08:42:06 Date Recorded Heart rate Systolic blood pressure Diastolic blood pressure Provider Name and Address Organization Details Last Updated DateTime 06/08/2024 69 /min 144 mm[Hg] 60 mm[Hg] Not Available [facility] 06/08/2024 11:51:07 Date Recorded Heart rate Systolic blood pressure Diastolic blood pressure Provider Name and Address Organization Details Last Updated DateTime 06/11/2024 77 /min 148 mm[Hg] 58 mm[Hg] Not Available [facility] 06/11/2024 07:34:04 Date Recorded Heart rate Systolic blood pressure Diastolic blood pressure Provider Name and Address Organization Details Last Updated DateTime 06/12/2024 74 /min 164 mm[Hg] 74 mm[Hg] Not Available [facility] 06/12/2024 15:30:05 Date Recorded Heart rate Systolic blood pressure Diastolic blood pressure Provider Name and Address Organization Details Last Updated DateTime 06/14/2024 83 /min 152 mm[Hg] 65 mm[Hg] Not Available [facility] 06/14/2024 08:09:06 Date Recorded Heart rate Systolic blood pressure Diastolic blood pressure Provider Name and Address Organization Details Last Updated DateTime 06/15/2024 85 /min 149 mm[Hg] 61 mm[Hg] Not Available [facility] 06/15/2024 17:02:02 Date Recorded Heart rate Systolic blood pressure Diastolic blood pressure Provider Name and Address Organization Details Last Updated DateTime 06/17/2024 71 /min 140 mm[Hg] 52 mm[Hg] Not Available [facility] 06/17/2024 07:52:07 Date Recorded Heart rate Systolic blood pressure Diastolic blood pressure Provider Name and Address Organization Details Last Updated DateTime 06/18/2024 89 /min 147 mm[Hg] 59 mm[Hg] Not Available [facility] 06/18/2024 12:48:03 Date Recorded Heart rate Systolic blood pressure Diastolic blood pressure Provider Name and Address Organization Details Last Updated DateTime 06/21/2024 77 /min 144 mm[Hg] 96 mm[Hg] Not Available [facility] 06/21/2024 09:53:04 Date Recorded Heart rate Systolic blood pressure Diastolic blood pressure Provider Name and Address Organization Details Last Updated DateTime 06/23/2024 82 /min 145 mm[Hg] 72 mm[Hg] Not Available [facility] 06/23/2024 08:13:05 Date Recorded Body height Body mass index (BMI) Body weight Oxygen saturation Oxygen saturation in Arterial blood by Pulse oximetry Heart rate Systolic blood pressure Diastolic blood pressure Provider Name and Address Organization Details Last Updated DateTime 158.75 cm 30.3 kg/m2 24157.3 2 g 96 % 96 % 74 /min 148 mm[Hg] 80 mm[Hg] [facility] 08:42:55 Date Recorded Heart rate Systolic blood pressure Diastolic blood pressure Provider Name and Address Organization Details Last Updated DateTime 06/22/2024 77 /min 159 mm[Hg] 104 mm[Hg] Not Available [facility] 06/23/2024 08:13:08 Date Recorded Heart rate Systolic blood pressure Diastolic blood pressure Provider Name and Address Organization Details Last Updated DateTime 06/24/2024 77 /min 141 mm[Hg] 56 mm[Hg] Not Available [facility] 06/24/2024 11:51:01 Date Recorded Heart rate Systolic blood pressure Diastolic blood pressure Provider Name and Address Organization Details Last Updated DateTime 06/25/2024 73 /min 163 mm[Hg] 63 mm[Hg] Not Available [facility] 06/25/2024 09:40:06 Date Recorded Heart rate Systolic blood pressure Diastolic blood pressure Provider Name and Address Organization Details Last Updated DateTime 06/27/2024 77 /min 154 mm[Hg] 65 mm[Hg] Not Available [facility] 06/27/2024 10:26:05 Date Recorded Heart rate Systolic blood pressure Diastolic blood pressure Provider Name and Address Organization Details Last Updated DateTime 06/26/2024 83 /min 173 mm[Hg] 90 mm[Hg] Not Available [facility] 06/27/2024 10:26:09 Date Recorded Heart rate Systolic blood pressure Diastolic blood pressure Provider Name and Address Organization Details Last Updated DateTime 06/28/2024 78 /min 154 mm[Hg] 74 mm[Hg] Not Available [facility] 06/28/2024 16:50:03 Date Recorded Heart rate Heart rate Heart rate Systolic blood pressure Diastolic blood pressure Systolic blood pressure Diastolic blood pressure Systolic blood pressure Diastolic blood pressure Provider Name and Address Organization Details Last Updated DateTime 4 100 /min 92 /min 93 /min 141 mm[Hg] 126 mm[Hg] 136 mm[Hg] 52 mm[Hg] 142 mm[Hg] 51 mm[Hg] Not Available [facility] 14:09:05 Date Recorded Heart rate Systolic blood pressure Diastolic blood pressure Provider Name and Address Organization Details Last Updated DateTime 07/01/2024 98 /min 125 mm[Hg] 48 mm[Hg] Not Available [facility] 07/01/2024 17:14:03 Date Recorded Heart rate Systolic blood pressure Diastolic blood pressure Provider Name and Address Organization Details Last Updated DateTime 07/02/2024 74 /min 144 mm[Hg] 63 mm[Hg] Not Available [facility] 07/02/2024 15:52:06 Date Recorded Heart rate Systolic blood pressure Diastolic blood pressure Provider Name and Address Organization Details Last Updated DateTime 07/03/2024 70 /min 135 mm[Hg] 41 mm[Hg] Not Available [facility] 07/04/2024 08:37:01 Date Recorded Heart rate Systolic blood pressure Diastolic blood pressure Provider Name and Address Organization Details Last Updated DateTime 07/04/2024 82 /min 135 mm[Hg] 46 mm[Hg] Not Available [facility] 07/04/2024 08:37:02 Date Recorded Heart rate Heart rate Systolic blood pressure Diastolic blood pressure Systolic blood pressure Diastolic blood pressure Provider Name and Address Organization Details Last Updated DateTime 4 83 /min 76 /min 183 mm[Hg] 71 mm[Hg] 133 mm[Hg] 51 mm[Hg] Not Available [facility] 11:45:07 Date Recorded Heart rate Systolic blood pressure Diastolic blood pressure Provider Name and Address Organization Details Last Updated DateTime 07/07/2024 81 /min 157 mm[Hg] 85 mm[Hg] Not Available [facility] 07/10/2024 14:16:04 Date Recorded Heart rate Systolic blood pressure Diastolic blood pressure Provider Name and Address Organization Details Last Updated DateTime 07/10/2024 100 /min 152 mm[Hg] 70 mm[Hg] Not Available [facility] 07/10/2024 14:16:05 Date Recorded Heart rate Systolic blood pressure Diastolic blood pressure Provider Name and Address Organization Details Last Updated DateTime 07/11/2024 76 /min 130 mm[Hg] 67 mm[Hg] Not Available [facility] 07/11/2024 07:20:01 Date Recorded Heart rate Systolic blood pressure Diastolic blood pressure Provider Name and Address Organization Details Last Updated DateTime 07/13/2024 83 /min 149 mm[Hg] 67 mm[Hg] Not Available [facility] 07/13/2024 07:39:06 Date Recorded Heart rate Systolic blood pressure Diastolic blood pressure Provider Name and Address Organization Details Last Updated DateTime 07/14/2024 76 /min 138 mm[Hg] 66 mm[Hg] Not Available [facility] 07/17/2024 11:39:02 Date Recorded Heart rate Systolic blood pressure Diastolic blood pressure Provider Name and Address Organization Details Last Updated DateTime 07/17/2024 85 /min 169 mm[Hg] 101 mm[Hg] Not Available [facility] 07/17/2024 11:39:05 Date Recorded Heart rate Systolic blood pressure Diastolic blood pressure Provider Name and Address Organization Details Last Updated DateTime 07/18/2024 76 /min 127 mm[Hg] 52 mm[Hg] Not Available [facility] 07/18/2024 19:04:02 Date Recorded Heart rate Systolic blood pressure Diastolic blood pressure Provider Name and Address Organization Details Last Updated DateTime 07/19/2024 72 /min 160 mm[Hg] 95 mm[Hg] Not Available [facility] 07/19/2024 08:09:09 Date Recorded Heart rate Systolic blood pressure Diastolic blood pressure Provider Name and Address Organization Details Last Updated DateTime 07/21/2024 85 /min 162 mm[Hg] 64 mm[Hg] Not Available [facility] 07/21/2024 08:01:01 Date Recorded Heart rate Systolic blood pressure Diastolic blood pressure Provider Name and Address Organization Details Last Updated DateTime 07/20/2024 80 /min 161 mm[Hg] 52 mm[Hg] Not Available [facility] 07/21/2024 08:01:06 Date Recorded Heart rate Systolic blood pressure Diastolic blood pressure Provider Name and Address Organization Details Last Updated DateTime 07/22/2024 84 /min 140 mm[Hg] 84 mm[Hg] Not Available [facility] 07/22/2024 07:47:02 Date Recorded Heart rate Systolic blood pressure Diastolic blood pressure Provider Name and Address Organization Details Last Updated DateTime 07/23/2024 89 /min 149 mm[Hg] 62 mm[Hg] Not Available [facility] 07/23/2024 10:09:09 Date Recorded Heart rate Heart rate Systolic blood pressure Diastolic blood pressure Systolic blood pressure Diastolic blood pressure Provider Name and Address Organization Details Last Updated DateTime 92 /min 97 /min 164 mm[Hg] 109 mm[Hg] 145 mm[Hg] 58 mm[Hg] Not Available [facility] 11:19:05 Date Recorded Heart rate Systolic blood pressure Diastolic blood pressure Provider Name and Address Organization Details Last Updated DateTime 07/25/2024 72 /min 135 mm[Hg] 55 mm[Hg] Not Available [facility] 07/27/2024 11:05:06 Date Recorded Heart rate Systolic blood pressure Diastolic blood pressure Provider Name and Address Organization Details Last Updated DateTime 07/28/2024 99 /min 165 mm[Hg] 71 mm[Hg] Not Available [facility] 07/28/2024 15:55:03 Date Recorded Heart rate Systolic blood pressure Diastolic blood pressure Provider Name and Address Organization Details Last Updated DateTime 07/29/2024 73 /min 142 mm[Hg] 75 mm[Hg] Not Available [facility] 07/31/2024 08:14:06 Date Recorded Heart rate Heart rate Systolic blood pressure Diastolic blood pressure Systolic blood pressure Diastolic blood pressure Provider Name and Address Organization Details Last Updated DateTime 79 /min 78 /min 164 mm[Hg] 116 mm[Hg] 142 mm[Hg] 87 mm[Hg] Not Available [facility] 08:28:08 Date Recorded Heart rate Systolic blood pressure Diastolic blood pressure Provider Name and Address Organization Details Last Updated DateTime 08/01/2024 81 /min 155 mm[Hg] 56 mm[Hg] Not Available [facility] 08/01/2024 08:38:04 Date Recorded Heart rate Systolic blood pressure Diastolic blood pressure Provider Name and Address Organization Details Last Updated DateTime 08/22/2024 102 /min 149 mm[Hg] 64 mm[Hg] Not Available [facility] 08/22/2024 21:11:05 Date Recorded Heart rate Systolic blood pressure Diastolic blood pressure Provider Name and Address Organization Details Last Updated DateTime 08/23/2024 90 /min 151 mm[Hg] 65 mm[Hg] Not Available [facility] 08/23/2024 09:16:08 Date Recorded Heart rate Systolic blood pressure Diastolic blood pressure Provider Name and Address Organization Details Last Updated DateTime 08/24/2024 73 /min 152 mm[Hg] 51 mm[Hg] Not Available [facility] 08/24/2024 08:35:05 Date Recorded Heart rate Heart rate Heart rate Systolic blood pressure Diastolic blood pressure Systolic blood pressure Diastolic blood pressure Systolic blood pressure Diastolic blood pressure Provider Name and Address Organization Details Last Updated DateTime 77 /min 72 /min 71 /min 167 mm[Hg] 71 mm[Hg] 175 mm[Hg] 75 mm[Hg] 147 mm[Hg] 56 mm[Hg] Not Available [facility] 21:14:03 Date Recorded Heart rate Systolic blood pressure Diastolic blood pressure Provider Name and Address Organization Details Last Updated DateTime 08/26/2024 87 /min 147 mm[Hg] 84 mm[Hg] Not Available [facility] 08/26/2024 16:12:04 Date Recorded Heart rate Heart rate Systolic blood pressure Diastolic blood pressure Systolic blood pressure Diastolic blood pressure Provider Name and Address Organization Details Last Updated DateTime 88 /min 86 /min 165 mm[Hg] 113 mm[Hg] 158 mm[Hg] 92 mm[Hg] Not Available [facility] 09:01:06 Date Recorded Heart rate Systolic blood pressure Diastolic blood pressure Provider Name and Address Organization Details Last Updated DateTime 08/30/2024 77 /min 156 mm[Hg] 66 mm[Hg] Not Available [facility] 08/30/2024 12:42:07 Date Recorded Heart rate Systolic blood pressure Diastolic blood pressure Provider Name and Address Organization Details Last Updated DateTime 08/31/2024 69 /min 141 mm[Hg] 93 mm[Hg] Not Available [facility] 08/31/2024 08:53:01 Date Recorded Heart rate Heart rate Systolic blood pressure Diastolic blood pressure Systolic blood pressure Diastolic blood pressure Provider Name and Address Organization Details Last Updated DateTime 77 /min 77 /min 127 mm[Hg] 84 mm[Hg] 124 mm[Hg] 87 mm[Hg] Not Available [facility] 07:27:07 Date Recorded Heart rate Systolic blood pressure Diastolic blood pressure Provider Name and Address Organization Details Last Updated DateTime 09/02/2024 71 /min 152 mm[Hg] 68 mm[Hg] Not Available [facility] 09/02/2024 08:38:04 Date Recorded Heart rate Systolic blood pressure Diastolic blood pressure Provider Name and Address Organization Details Last Updated DateTime 09/03/2024 70 /min 151 mm[Hg] 99 mm[Hg] Not Available [facility] 09/03/2024 21:10:01 Date Recorded Heart rate Systolic blood pressure Diastolic blood pressure Provider Name and Address Organization Details Last Updated DateTime 09/04/2024 89 /min 149 mm[Hg] 63 mm[Hg] Not Available [facility] 09/04/2024 14:40:03 Date Recorded Heart rate Systolic blood pressure Diastolic blood pressure Provider Name and Address Organization Details Last Updated DateTime 09/05/2024 79 /min 149 mm[Hg] 65 mm[Hg] Not Available [facility] 09/05/2024 07:49:05 Date Recorded Heart rate Systolic blood pressure Diastolic blood pressure Provider Name and Address Organization Details Last Updated DateTime 09/08/2024 67 /min 169 mm[Hg] 108 mm[Hg] [facility] 09/08/[facility] 21:12:01 Date Recorded Heart rate Systolic blood pressure Diastolic blood pressure Provider Name and Address Organization Details Last Updated DateTime 09/09/2024 86 /min 132 mm[Hg] 54 mm[Hg] Not Available [facility] 09/09/2024 12:52:05 Date Recorded Heart rate Systolic blood pressure Diastolic blood pressure Provider Name and Address Organization Details Last Updated DateTime 09/10/2024 76 /min 142 mm[Hg] 83 mm[Hg] Not Available [facility] 09/10/2024 12:19:02 Date Recorded Heart rate Systolic blood pressure Diastolic blood pressure Provider Name and Address Organization Details Last Updated DateTime 09/13/2024 73 /min 169 mm[Hg] 90 mm[Hg] Not Available [facility] 09/13/2024 16:59:04 Date Recorded Heart rate Systolic blood pressure Diastolic blood pressure Provider Name and Address Organization Details Last Updated DateTime 09/15/2024 71 /min 148 mm[Hg] 108 mm[Hg] Not Available [facility] 09/15/2024 09:21:06 Date Recorded Heart rate Systolic blood pressure Diastolic blood pressure Provider Name and Address Organization Details Last Updated DateTime 09/16/2024 79 /min 159 mm[Hg] 90 mm[Hg] Not Available [facility] 09/16/2024 19:25:03 Date Recorded Heart rate Heart rate Systolic blood pressure Diastolic blood pressure Systolic blood pressure Diastolic blood pressure Provider Name and Address Organization Details Last Updated DateTime 84 /min 79 /min 156 mm[Hg] 119 mm[Hg] 143 mm[Hg] 54 mm[Hg] Not Available [facility] 22:07:04 Date Recorded Heart rate Systolic blood pressure Diastolic blood pressure Provider Name and Address Organization Details Last Updated DateTime 09/18/2024 92 /min 172 mm[Hg] 68 mm[Hg] Not Available [facility] 09/18/2024 19:12:01 Date Recorded Heart rate Systolic blood pressure Diastolic blood pressure Provider Name and Address Organization Details Last Updated DateTime 09/20/2024 85 /min 167 mm[Hg] 65 mm[Hg] Not Available [facility] 09/20/2024 09:50:01 Date Recorded Heart rate Systolic blood pressure Diastolic blood pressure Provider Name and Address Organization Details Last Updated DateTime 09/23/2024 78 /min 153 mm[Hg] 96 mm[Hg] Not Available [facility] 09/23/2024 07:07:02 Date Recorded Heart rate Systolic blood pressure Diastolic blood pressure Provider Name and Address Organization Details Last Updated DateTime 09/24/2024 94 /min 158 mm[Hg] 113 mm[Hg] Not Available [facility] 09/24/2024 12:49:03 Date Recorded Heart rate Systolic blood pressure Diastolic blood pressure Provider Name and Address Organization Details Last Updated DateTime 09/26/2024 86 /min 152 mm[Hg] 49 mm[Hg] Not Available [facility] 09/26/2024 21:34:03 Date Recorded Heart rate Systolic blood pressure Diastolic blood pressure Provider Name and Address Organization Details Last Updated DateTime 09/28/2024 92 /min 159 mm[Hg] 59 mm[Hg] Not Available [facility] 09/28/2024 10:25:02 Date Recorded Heart rate Systolic blood pressure Diastolic blood pressure Provider Name and Address Organization Details Last Updated DateTime 09/29/2024 78 /min 166 mm[Hg] 105 mm[Hg] Not Available [facility] 09/29/2024 17:10:03 Date Recorded Heart rate Systolic blood pressure Diastolic blood pressure Provider Name and Address Organization Details Last Updated DateTime 10/02/2024 69 /min 151 mm[Hg] 95 mm[Hg] Not Available [facility] 10/02/2024 12:05:02 Date Recorded Heart rate Systolic blood pressure Diastolic blood pressure Provider Name and Address Organization Details Last Updated DateTime 10/04/2024 94 /min 156 mm[Hg] 81 mm[Hg] Not Available [facility] 10/04/2024 10:54:06 Date Recorded Heart rate Heart rate Systolic blood pressure Diastolic blood pressure Systolic blood pressure Diastolic blood pressure Provider Name and Address Organization Details Last Updated DateTime 86 /min 86 /min 177 mm[Hg] 75 mm[Hg] 145 mm[Hg] 62 mm[Hg] Not Available [facility] 14:29:05 Date Recorded Heart rate Systolic blood pressure Diastolic blood pressure Provider Name and Address Organization Details Last Updated DateTime 10/08/2024 79 /min 161 mm[Hg] 73 mm[Hg] Not Available [facility] 10/08/2024 11:29:06 Date Recorded Heart rate Heart rate Systolic blood pressure Diastolic blood pressure Systolic blood pressure Diastolic blood pressure Provider Name and Address Organization Details Last Updated DateTime 98 /min 96 /min 130 mm[Hg] 59 mm[Hg] 131 mm[Hg] 57 mm[Hg] Not Available [facility] 19:08:04 Date Recorded Heart rate Systolic blood pressure Diastolic blood pressure Provider Name and Address Organization Details Last Updated DateTime 10/12/2024 76 /min 156 mm[Hg] 64 mm[Hg] Not Available [facility] 10/12/2024 08:26:03 Date Recorded Heart rate Systolic blood pressure Diastolic blood pressure Provider Name and Address Organization Details Last Updated DateTime 10/14/2024 82 /min 140 mm[Hg] 59 mm[Hg] Not Available [facility] 10/14/2024 12:16:02 Date Recorded Heart rate Systolic blood pressure Diastolic blood pressure Provider Name and Address Organization Details Last Updated DateTime 10/16/2024 77 /min 174 mm[Hg] 120 mm[Hg] Not Available [facility] 10/16/2024 20:15:01 Date Recorded Heart rate Systolic blood pressure Diastolic blood pressure Provider Name and Address Organization Details Last Updated DateTime 10/17/2024 87 /min 136 mm[Hg] 59 mm[Hg] Not Available [facility] 10/17/2024 19:31:02 Date Recorded Heart rate Heart rate Systolic blood pressure Diastolic blood pressure Systolic blood pressure Diastolic blood pressure Provider Name and Address Organization Details Last Updated DateTime 5 92 /min 89 /min 172 mm[Hg] 87 mm[Hg] 156 mm[Hg] 74 mm[Hg] Not Available [facility] 09:25:09 Date Recorded Heart rate Systolic blood pressure Diastolic blood pressure Provider Name and Address Organization Details Last Updated DateTime 10/20/2024 67 /min 156 mm[Hg] 89 mm[Hg] Not Available [facility] 10/20/2024 10:50:07 Date Recorded Heart rate Systolic blood pressure Diastolic blood pressure Provider Name and Address Organization Details Last Updated DateTime 10/23/2024 80 /min 146 mm[Hg] 70 mm[Hg] Not Available [facility] 10/23/2024 12:04:03 Date Recorded Heart rate Heart rate Systolic blood pressure Diastolic blood pressure Systolic blood pressure Diastolic blood pressure Provider Name and Address Organization Details Last Updated DateTime 5 86 /min 85 /min 160 mm[Hg] 68 mm[Hg] 148 mm[Hg] 69 mm[Hg] Not Available [facility] 17:54:05 Date Recorded Heart rate Heart rate Systolic blood pressure Diastolic blood pressure Systolic blood pressure Diastolic blood pressure Provider Name and Address Organization Details Last Updated DateTime 77 /min 77 /min 172 mm[Hg] 72 mm[Hg] 145 mm[Hg] 86 mm[Hg] Not Available [facility] 15:40:04 Date Recorded Heart rate Systolic blood pressure Diastolic blood pressure Provider Name and Address Organization Details Last Updated DateTime 10/31/2024 77 /min 151 mm[Hg] 77 mm[Hg] Not Available [facility] 10/31/2024 08:10:04 Date Recorded Heart rate Systolic blood pressure Diastolic blood pressure Provider Name and Address Organization Details Last Updated DateTime 11/01/2024 86 /min 149 mm[Hg] 69 mm[Hg] Not Available [facility] 11/01/2024 15:03:01 Date Recorded Heart rate Systolic blood pressure Diastolic blood pressure Provider Name and Address Organization Details Last Updated DateTime 11/03/2024 81 /min 145 mm[Hg] 66 mm[Hg] Not Available [facility] 11/03/2024 11:13:10 Date Recorded Heart rate Systolic blood pressure Diastolic blood pressure Provider Name and Address Organization Details Last Updated DateTime 11/05/2024 78 /min 143 mm[Hg] 67 mm[Hg] Not Available [facility] 11/05/2024 14:31:04 Date Recorded Body height Body mass index (BMI) Body weight Oxygen saturation Oxygen saturation in Arterial blood by Pulse oximetry Heart rate Systolic blood pressure Diastolic blood pressure Provider Name and Address Organization Details Last Updated DateTime 5 158.75 cm 29.7 kg/m2 81371.7 4 g 96 % 96 % 50 /min 156 mm[Hg] 80 mm[Hg] Cleopatra pearson [place] [facility] 5 14:33:58 Date Recorded Heart rate Heart rate Systolic blood pressure Diastolic blood pressure Systolic blood pressure Diastolic blood pressure Provider Name and Address Organization Details Last Updated DateTime 5 81 /min 79 /min 165 mm[Hg] 68 mm[Hg] 145 mm[Hg] 84 mm[Hg] Not Available [facility] 19:14:07 Date Recorded Heart rate Systolic blood pressure Diastolic blood pressure Provider Name and Address Organization Details Last Updated DateTime 11/13/2024 69 /min 147 mm[Hg] 85 mm[Hg] Not Available [facility] 11/13/2024 13:19:02 Date Recorded Heart rate Heart rate Systolic blood pressure Diastolic blood pressure Systolic blood pressure Diastolic blood pressure Provider Name and Address Organization Details Last Updated DateTime 5 96 /min 96 /min 170 mm[Hg] 76 mm[Hg] 154 mm[Hg] 78 mm[Hg] Not Available [facility] 14:49:03 Date Recorded Heart rate Systolic blood pressure Diastolic blood pressure Provider Name and Address Organization Details Last Updated DateTime 11/15/2024 79 /min 151 mm[Hg] 70 mm[Hg] Not Available [facility] 11/15/2024 12:23:04 Date Recorded Heart rate Systolic blood pressure Diastolic blood pressure Provider Name and Address Organization Details Last Updated DateTime 11/16/2024 81 /min 144 mm[Hg] 61 mm[Hg] Not Available [facility] 11/16/2024 12:11:05 Date Recorded Heart rate Systolic blood pressure Diastolic blood pressure Provider Name and Address Organization Details Last Updated DateTime 11/18/2024 70 /min 150 mm[Hg] 86 mm[Hg] Not Available [facility] 11/18/2024 09:47:07 Date Recorded Heart rate Systolic blood pressure Diastolic blood pressure Provider Name and Address Organization Details Last Updated DateTime 11/21/2024 71 /min 157 mm[Hg] 73 mm[Hg] Not Available [facility] 11/21/2024 08:28:08 Date Recorded Heart rate Systolic blood pressure Diastolic blood pressure Provider Name and Address Organization Details Last Updated DateTime 11/23/2024 83 /min 156 mm[Hg] 83 mm[Hg] Not Available [facility] 11/23/2024 08:06:05 Date Recorded Heart rate Heart rate Systolic blood pressure Diastolic blood pressure Systolic blood pressure Diastolic blood pressure Provider Name and Address Organization Details Last Updated DateTime 85 /min 88 /min 158 mm[Hg] 110 mm[Hg] 139 mm[Hg] 58 mm[Hg] Not Available [facility] 10:53:04 Date Recorded Heart rate Heart rate Heart rate Systolic blood pressure Diastolic blood pressure Systolic blood pressure Diastolic blood pressure Systolic blood pressure Diastolic blood pressure Provider Name and Address Organization Details Last Updated DateTime 89 /min 88 /min 87 /min 177 mm[Hg] 65 mm[Hg] 145 mm[Hg] 67 mm[Hg] 143 mm[Hg] 63 mm[Hg] Not Available [facility] 17:53:03 Date Recorded Heart rate Heart rate Heart rate Systolic blood pressure Diastolic blood pressure Systolic blood pressure Diastolic blood pressure Systolic blood pressure Diastolic blood pressure Provider Name and Address Organization Details Last Updated DateTime 5 89 /min 82 /min 80 /min 133 mm[Hg] 56 mm[Hg] 130 mm[Hg] 77 mm[Hg] 127 mm[Hg] 88 mm[Hg] Not Available [facility] 5 11:15:39 Date Recorded Heart rate Heart rate Systolic blood pressure Diastolic blood pressure Systolic blood pressure Diastolic blood pressure Provider Name and Address Organization Details Last Updated DateTime 90 /min 80 /min 150 mm[Hg] 89 mm[Hg] 146 mm[Hg] 91 mm[Hg] Not Available [facility] 16:01:35 Date Recorded Heart rate Systolic blood pressure Diastolic blood pressure Provider Name and Address Organization Details Last Updated DateTime 12/05/2024 91 /min 149 mm[Hg] 70 mm[Hg] Not Available [facility] 12/05/2024 15:34:37 Date Recorded Heart rate Systolic blood pressure Diastolic blood pressure Provider Name and Address Organization Details Last Updated DateTime 12/09/2024 77 /min 130 mm[Hg] 79 mm[Hg] Not Available [facility] 12/09/2024 07:55:35 Date Recorded Heart rate Systolic blood pressure Diastolic blood pressure Provider Name and Address Organization Details Last Updated DateTime 12/11/2024 83 /min 158 mm[Hg] 54 mm[Hg] Not Available [facility] 12/11/2024 14:23:36 Date Recorded Heart rate Heart rate Systolic blood pressure Diastolic blood pressure Systolic blood pressure Diastolic blood pressure Provider Name and Address Organization Details Last Updated DateTime 5 76 /min 73 /min 176 mm[Hg] 75 mm[Hg] 156 mm[Hg] 64 mm[Hg] Not Available [facility] 19:43:34 Date Recorded Heart rate Systolic blood pressure Diastolic blood pressure Provider Name and Address Organization Details Last Updated DateTime 12/15/2024 82 /min 145 mm[Hg] 82 mm[Hg] Not Available [facility] 12/15/2024 07:51:39 Date Recorded Heart rate Heart rate Systolic blood pressure Diastolic blood pressure Systolic blood pressure Diastolic blood pressure Provider Name and Address Organization Details Last Updated DateTime 03/29/202 5 79 /min 90 /min 161 mm[Hg] 106 mm[Hg] 166 mm[Hg] 63 mm[Hg] Not Available [facility] 16:22:37 Date Recorded Heart rate Systolic blood pressure Diastolic blood pressure Provider Name and Address Organization Details Last Updated DateTime 12/18/2024 76 /min 166 mm[Hg] 68 mm[Hg] Not Available [facility] 12/18/2024 13:51:39 Date Recorded Heart rate Heart rate Systolic blood pressure Diastolic blood pressure Systolic blood pressure Diastolic blood pressure Provider Name and Address Organization Details Last Updated DateTime 65 /min 86 /min 169 mm[Hg] 71 mm[Hg] 152 mm[Hg] 91 mm[Hg] Not Available [facility] 09:50:34 Date Recorded Heart rate Systolic blood pressure Diastolic blood pressure Provider Name and Address Organization Details Last Updated DateTime 12/22/2024 76 /min 155 mm[Hg] 53 mm[Hg] Not Available [facility] 12/22/2024 21:40:35 Date Recorded Heart rate Systolic blood pressure Diastolic blood pressure Provider Name and Address Organization Details Last Updated DateTime 12/25/2024 74 /min 140 mm[Hg] 91 mm[Hg] Not Available [facility] 12/25/2024 19:39:36 Date Recorded Heart rate Systolic blood pressure Diastolic blood pressure Provider Name and Address Organization Details Last Updated DateTime 12/30/2024 73 /min 157 mm[Hg] 89 mm[Hg] Not Available [facility] 12/30/2024 06:45:37 Date Recorded Heart rate Heart rate Heart rate Systolic blood pressure Diastolic blood pressure Systolic blood pressure Diastolic blood pressure Systolic blood pressure Diastolic blood pressure Provider Name and Address Organization Details Last Updated DateTime 5 83 /min 83 /min 72 /min 167 mm[Hg] 62 mm[Hg] 153 mm[Hg] 70 mm[Hg] 170 mm[Hg] 61 mm[Hg] Not Available [facility] 17:40:34 Date Recorded Heart rate Heart rate Systolic blood pressure Diastolic blood pressure Systolic blood pressure Diastolic blood pressure Provider Name and Address Organization Details Last Updated DateTime 80 /min 80 /min 130 mm[Hg] 76 mm[Hg] 153 mm[Hg] 92 mm[Hg] Not Available [facility] 09:27:36 Date Recorded Heart rate Heart rate Systolic blood pressure Diastolic blood pressure Systolic blood pressure Diastolic blood pressure Provider Name and Address Organization Details Last Updated DateTime 5 76 /min 71 /min 165 mm[Hg] 68 mm[Hg] 148 mm[Hg] 61 mm[Hg] Not Available [facility] 5 07:36:35 Date Recorded Heart rate Systolic blood pressure Diastolic blood pressure Provider Name and Address Organization Details Last Updated DateTime 01/06/2025 83 /min 139 mm[Hg] 85 mm[Hg] Not Available [facility] 01/06/2025 21:11:37 Date Recorded Heart rate Systolic blood pressure Diastolic blood pressure Provider Name and Address Organization Details Last Updated DateTime 01/10/2025 69 /min 162 mm[Hg] 61 mm[Hg] Not Available [facility] 01/10/2025 08:34:36 Date Recorded Body height Body mass index (BMI) Body weight Heart rate Oxygen saturation Oxygen saturation in Arterial blood by Pulse oximetry Systolic blood pressure Diastolic blood pressure Provider Name and Address Organization Details Last Updated DateTime 5 158.75 cm 30.1 kg/m2 10767.7 3 g 90 /min 96 % 96 % 126 mm[Hg] 60 mm[Hg] Cleopatra pearson [place] [facility] 5 09:33:05 Date Recorded Heart rate Heart rate Systolic blood pressure Diastolic blood pressure Systolic blood pressure Diastolic blood pressure Provider Name and Address Organization Details Last Updated DateTime 5 82 /min 82 /min 168 mm[Hg] 120 mm[Hg] 152 mm[Hg] 61 mm[Hg] Not Available [facility] 5 19:27:38 Social History Question Answer Notes LastModified by Organizat ion Details LastModified Time Tobacco Smoking Status Never Smoker Leigh Alfred NP [address] [place] [address], [id number], [place] [email or web address] 02/26/2022 13:47:15 What Is Your Level Of Alcohol Consumption? Occasional [email or web address] Information not available 02/26/2022 What Is Your Level Of Caffeine Consumption? Occasional [email or web address] Information not available 02/26/2022 Are You Currently Employed? Yes [email or web address] Information not available 02/26/2022 How Many Children Do You Have? 2 [email or web address] Information not available 02/26/2022 What Is Your Relationship Status? [email or web address] Information not available 02/26/2022 Do You Use Any Illicit Or Recreational Drugs? No [email or web address] Information not available 02/26/2022 Sex: Unknown Functional Status Question Answer Note LastModified by Organization D etails LastModified Time What is your exercise level? Moderate [email or web address] Information not available 02/26/2022 Mental Status None recorded. Family History Relationship Description Onset Age of this Age Resolved Age Notes LastModified by Organization Details LastModified Time Mother Essential hypertension Not available 04/2022 13:45:50 Father Essential hypertension Not available 04/2022 13:46:10 Medical History No medical history recorded. Gynecological History Statement/Question Response Most Recent Mammogram 06/22/2023 Date of Last Colonoscopy 06/08/2024 Obstetrics History GPAL:G 0 P 0 0 0 0 Immunizations Vaccine Type Date Status Note Provider Nam e and Address Organization Details Recorded Time Influenza, high-dose, quadrivalent, PF 2 completed Marii Brown null, [place] [facility] 07/30/2022 16:04:12 COVID-19, mRNA, LNP-S, bivalent, PF, 30 mcg/0.3 mL dose 3 completed Marii Brown null, [place] [facility] 02/24/2023 13:33:30 RSV, recombinant, protein subunit RSVpreF, adjuvant reconstituted, 0.5 mL, PF 3 completed Marlon Gonsalez [address] [place] [address], [id number], [place] [facility] 07/07/2023 10:52:01 Influenza, high-dose, quadrivalent, PF 3 completed Cleopatra Jimenez null, [place] [facility] 09/25/2023 15:20:37 COVID-19, mRNA, LNP-S, PF, scott-sucrose, 30 mcg/0.3 mL 3 completed Cleopatra Jimenez null, [place] [facility] 09/25/2023 15:20:47 zoster recombinant 4 completed Celopatra Jimenez null, [place] [facility] 01/07/2024 09:50:41 zoster recombinant [address], [address], [place] [facility] 04/07/2024 11:04:00 zoster live [address], [address], [place] [facility] 02/26/2022 13:32:42 Influenza, adjuvanted, trivalent, PF [address], [address], [place] [facility] 02/26/2022 13:32:42 COVID-19, mRNA, LNP-S, PF, 30 mcg/0.3 mL dose [address], [address], [place] [facility] 02/26/2022 13:32:42 Tdap [address], [address], [place] [facility] 02/26/2022 13:32:42 Influenza, adjuvanted, trivalent, PF [address], [address], [place] [facility] 02/26/2022 13:32:42 Pneumococcal conjugate PCV 13 [address], [address], [place] [facility] 02/26/2022 13:32:42 Influenza, high-dose, trivalent, PF [address], [address], [place] [facility] 02/26/2022 13:32:42 COVID-19, mRNA, LNP-S, PF, 30 mcg/0.3 mL dose, scott-sucrose 2 completed [place] [address], [place], [place], , [place] [facility] 02/26/2022 13:32:42 Influenza, MDCK, quadrivalent, PF 1 completed [address] [address], [place], , [place] [facility] 02/26/2022 13:32:42 pneumococcal polysaccharide PPV23 6 completed [address] [address], [place], [place], , [place] [facility] 02/26/2022 13:32:42 Influenza, high-dose, quadrivalent, PF 1 completed [address] [address], [place], [address], [place] [facility] 02/26/2022 13:32:42 Influenza, high-dose, trivalent, PF 5 completed [address] [place] [address], [place], , [place] [facility] 02/26/2022 13:32:42 COVID-19, mRNA, LNP-S, PF, 30 mcg/0.3 mL dose 1 completed [address] [address], [place], , [place] [facility] 02/26/2022 13:32:42 COVID-19, mRNA, LNP-S, PF, 30 mcg/0.3 mL dose 1 completed [address] [address], [place], [place], , [place] [facility] 02/26/2022 13:32:42 COVID-19, mRNA, LNP-S, PF, scott-sucrose, 30 mcg/0.3 mL 4 completed Cleopatra Jimenez null, [place] [facility] 11/08/2024 14:31:51 Tdap 4 completed Cleopatra Jimenez null, [place] [facility] 11/08/2024 14:31:51 Influenza, high-dose, trivalent, PF 4 completed Cleopatra Jimenez null, [place] [facility] 11/08/2024 14:31:51 Influenza, MDCK, quadrivalent, PF 1 completed Marii Brown caroline, [facility] 04/01/2022 09:17:14 Influenza, high-dose, quadrivalent, PF 1 completed Marii Kevin caroline, [facility] 04/01/2022 09:17:14 Past Encounters Encounter ID Performer Location Encounter Start Date Encounter Closed Date Diagnosis/Indication Diagnosis SNOMED-CT Code Diagnosis ICD10 Code Diagnosis Note [id number] Leigh Alfred NP Main Office [address] [place] [address],[address] [place] [address] 02/26/2022 13:00:06 02/26/2022 14:00:42 Pain in left lower limb [id number] M79.605 Will check US soft tissue. Follow up with results. Chronic back pain [id number] 002 M54.9 She uses PRN lidocaine patches with effect. She is currently seeing PT and was seeing a DO for maniuplati ons, may want to see DS for this here. Chronic ly mphoid leukemia, disease [id number] C91.90 Followed by Dr. Blake, graduated to yearly appointmen ts, next is 09/2022. Essential hypertension 67808560 I10 Well controlled , continue current regimen Hypothyroidism 44433832 E03.9 Historical ly well controlled , due for labs. 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 Will re-eval at next visit. 7342 Leigh Alfred NP Main Office [address] [place] [address],[address] [place] [address] 04/01/2022 08:56:09 04/01/2022 09:56:08 Chronic back pain 671716344 M54.9 She uses PRN lidocaine patches with effect. She is currently seeing PT and was seeing a DO for maniuplati ons, may want to see DS for this here in the future. Will add flexeril PRN. Chronic ly mphoid leukemia, disease 28263526 C91.[address] Blake, graduated to yearly appointmen ts, next is 09/2022. Essential hypertension 66700022 I10 Well controlled at this time. Continue current regimen and follow up in 6 months. Hypothyroidism 58732378 E03.9 Well controlled and follow up in 6 months. Major depr essive disorder 863511639 F32.9 Major stressors at this time but does not want to increase her sertraline . Screening for osteoporosis 363283247 Z13.820 Due for dexa. Pain in right hand 35431 95049 48146 [address]79[address] Miranda. Depressive disorder 3548 9007 F32.A 9184 Leigh Alfred NP Main Office [address] [facility],[address] [facility] [place] [address] 04/29/2022 13:18:28 04/29/2022 14:04:57 Easy bruising 805235064 R58 monitor area, call if worsening or other areas of similar bruising occur 07386 Teressa Hernandez NP Main Office [address] [facility],[address] [facility] [place] [address] 06/06/2022 08:53:12 06/06/2022 09:43:53 Pain in left lower limb 308813768 M79.605 Ddx: osteoarthr itis, rheumatoid arthritis, trochanter ic bursitis, muscular sprain, sciatica (unlikely given no numbness/t ingling/bu rning)C/o chronic soreness around the left femoral head, medial aspect of knee, and lateral malleolus which occur simultaneo usly. Denies locking/ca tching, bucking, numbness, and tingling. Patient agreeable to utilizing Voltaren gel for pain relief in sore areas on left lower extremity as needed. Will place a referral to PT to focus on LLE. If conservati ve management does not provide any relief or symptoms worse, pt will consider returning to [facility]. Wound of skin 603471429 T14.8XXA 3 cm distal to the right tibial plateau there is a 2.5 cm closed wound with slight erythemato us borders. No discharge or bleeding noted. Appears to be healing. No signs of infection. Plan is for patient to allow the wound to air out during the day and utilize triple biotic & a band aid as needed for protection at night. The area should be kept clean/dry. No additional peroxide is needed daily. If wound appears to be worsening, pain increases, persistent discharge is noted, or generally appears infected please feel free to contact the office. 85250 Leigh Alfred NP Main Office [address] [place] [address] [address] [place] [address] 07/01/2022 15:50:56 07/01/2022 16:27:21 Pain in left lower limb 848248551 M79.605 May need PSSP follow up if this is ineffectiv e vs CT scan lower leg as in follow up to the previous US. Caregiver role strain 12 9908251 Z73.3 Discussion surroundin brayan taking care of herself while also helping her granddaugh le. She is in agreement that seeing a therapist may be of some benefit to her. I gave her the card for [employer] and told her I would ask my colleagues if they know of any child psychologi sts in the area accepting patients to help her granddacameron mcnamara. 93742 Teressa Hernandez NP Main Office [address] [place] [address] [address] [facility] [place] [address] 07/23/2022 09:51:48 07/23/2022 10:46:03 Persistent cough 863486021 R05.3 Chest X-ray to r/o PNA in light of abnormal lung sounds. Continue with hot, steamy showers, drink plenty of warm fluids, refrain from ice cold fluids while cough present, rest, utilize Robitussin DM or Mucinex without decongesta nt. Call the office if any new or worsening symptoms. 92308 Leigh Alfred NP Main Office [address] [place] [address] [place] [address] 07/30/2022 15:45:18 07/30/2022 16:25:30 Cough 49115904 R05.9 08447 Kulwinder Harper DO Main Office [address] [place] [address] [address] [place] [address] 09/08/2022 10:58:41 09/08/2022 11:36:37 Essential hypertension 85539031 I10 71718 Leigh Alfred NP Main Office [address] [place] [address] [address] [place] [address] 09/25/2022 13:12:56 09/25/2022 13:57:14 Essential hypertension 16429563 I10 Continue to monitor at home and follow up in 6 months. Hypothyroidism 22940590 E03.9 TSH ordered to ensure levothyrox ine is at proper dosage. 01222 Kulwinder Harper DO Main Office [address] [place] [address] [address] [place] [address] 02/02/2023 11:33:10 02/02/2023 12:41:20 Allergic rhinitis 01038599 J30.9 Discussed supportive care with OTC allergy medication ( claritin, zyrtec), fluids, OTC cough medication / decongesta nts, as needed, throat lozenges, monitor symptoms, call if symptoms worsen 25162 Leigh Alfred NP Main Office [address] [place] [address] [address] [place] [address] 02/24/2023 13:12:06 02/24/2023 14:08:34 Acute sinusitis 68603642 J01.90 Follow up PRN. Chronic ly mphoid leukemia, disease 94951656 C91.[address] Blake, graduated to yearly appointmen , next is 11/2023. Major depr essive disorder 612487108 F32.1 Well controlled . Follow up in 7 months. Essential hypertension 00403890 I10 Well controlled , continue current regimen. Hypothyroidism 14042240 E03.9 Well controlled . Chronic back pain 257952 002 M54.9 Follow up with PSSP is next week. 89267 Leigh Alfred NP Main Office [address] [place] [address] [address] [place] [address] 04/22/2023 09:06:32 04/22/2023 09:41:18 Chronic back pain 546807275 M54.9 Having a minimally invasive procedure with [facility] at the end of the month. Pain in right hand 70986 62725 97830 M79.641 Will start NSAID. Will check kidney function in 1-2 weeks. She had a bump of Cr with gabapentin so will monitor closely. 34429 Leigh Alfred NP Main Office [address] [place] [address] [address] [place] [address] 05/05/2023 08:25:06 05/05/2023 08:43:53 Upper respiratory infection 73208242 J06.9 Continue with fluids, warm water gargles, increase Vitamin C, APAP as needed for discomfort 62850 Leigh Alfred NP Main Office [address] [place] [address] [address] [place] [address] 05/13/2023 11:34:41 05/13/2023 12:06:00 Impacted cerumen of bilateral ears [id number] 056362 H61.23 Both ears irrigated with H2O2 and warm water with only minimal result. Instructed pt to use OTC ear wax softener ( Debrox) to both ears 2-3 times daily, can try irrigate at home or return to off office for ear irrigation 09837 Leigh Alfred NP Main Office [address] [place] [address] [address] [facility] [place] [address] 05/21/2023 10:14:57 05/21/2023 11:29:18 Chronic back pain 819568752 M54.9 Just had surgery with wonderful results! Dysfunctio n of eustachian tube 24708050 H69.92 Suggested claritin and flonase. Follow up PRN. 88328 Kulwinder Harper DO Main Office [address] [place] [address] [place] [address] 07/07/2023 10:15:55 07/07/2023 10:48:13 Nasal congestion 97052993 R09.81 zyrtec daily, report if sx unimproved in week or 2. 89994 WILY SAMSON PA-C Main Office [address] [place] [address] [address] [place] [address] 07/20/2023 11:28:15 07/20/2023 12:49:34 Dizziness 473674218 R42 Acute urin kori tract infection 830854033 N39.0 68849 Kulwinder Harper DO Main Office [address] [place] [address] [address] [place] [address] 07/27/2023 11:18:40 07/27/2023 12:25:23 Dizziness 603827016 R42 Essential hypertension 01023063 I10 49327 Leigh Alfred NP Main Office [address] [place] [address] [address] [place] [address] 10/06/2023 12:58:41 10/06/2023 13:37:05 Hypothyroidism 79791006 E03.9 Well controlled . Needs refill. Pre-surger y evaluation 228533246 Z01.818 Average risk for surgery. 3.9% risk of within 30 days per [facility]. Chronic back pain 140203 002 M54.9 Having second surgery this week. 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, is followed by Dr Miranda for injections Chronic ly mphoid leukemia, disease 22769735 C91.[address] Blake yearly Chronic back pain 592376 002 M54.9 Underwent hardware placement L5-S1 with Dr Resendiz 10/14, continues with some low back / coccyx area discomfort Hypothyroidism 85740134 E03.9 Essential hypertension 36760328 I10 12657 Leigh Alfred NP Main Office [address] [place] [address] [address] [place] [address] 12/08/2023 09:27:03 12/08/2023 10:16:25 Upper respiratory infection 63880121 J06.9 Encouraged OTC decongesta nt ( Advil / APAP Sinus) , hydration, warm salt water gargles, tea/honey, monitor sx and call back as needed 70061 Leigh Alfred NP Main Office [address] [place] [address] [address] [place] [address] 01/07/2024 09:48:04 01/07/2024 10:21:07 Chronic back pain 974462007 M54.9 Improved since surgery. Hyperlipidemia 83307675 E78.5 Will start low dose statin and repeat labs in 3 months. Dyspnea on exertion 6084 5006 R06.09 Will check stress test Palpitations 01074799 R0 0.2 Will check zio patch 933499 Leigh Alfred NP Main Office [address] [place] [address] [address] [place] [address] 04/07/2024 10:55:51 04/07/2024 11:37:38 Acute kidney injury 56952704 N17.9 Small bump in creatinine , eGFR is decreased. HCTZ dose has been decreased. Will recheck labs in 6 months, will follow. Hyperlipidemia 59652966 E78.5 Tolerating statin well, no side effects. Decreased LDL, triglyceri nelson (decreased from 212 to 167, explained to patient that this level while technicall y high is not clinically significan t), increased HDL.Contin ue current regimen, will continue to follow. Essential hypertension 68053174 I10 Well controlled . Continue cardiology regimen. 711606 Leigh Alfred NP Main Office [address] [place] [address] [facility] [address] 06/23/2024 08:33:43 06/23/2024 09:37:34 Insomnia 500198820 G47.00 Insomnia causing significan t daytime fatigue and interferen ce with work. Refill hydroxyzin e. Peripheral vascular disease 677655334 I73.9 Mild abnormalit y on ROMERO but will hold off on any further testing given totally asymptomat ic. 917626 Leigh Alfred NP Main Office [address] [place] [address] [address] [place] [address] 11/08/2024 14:28:02 11/08/2024 15:14:38 Cough 99773949 R05.9 Will cover with antibiotic and cough medication . Follow up PRN. Essential hypertension 16098532 I10 Well controlled . Continue cardiology regimen. Hyperlipidemia 18842277 E78.5 Tolerating statin well, no side effects. Labs are pending. Hypothyroidism 22293969 E03.9 Labs are pending. 095827 Leigh Alfred NP Main Office [address] [place] [address] [facility] [place] [address] 01/11/2025 09:25:13 01/11/2025 10:59:06 Bilateral lower limb edema 848444403 R60.0 Increase HCTZ back to 50mg and recheck BMP in 1 month. Check echo and follow up with results. Health Concerns Section Related Observation LastModified by Organization Detai ls LastModified Time None Recorded Concern Status LastModified by Organization Details LastModified Time None Recorded Advance Directives Directive None Recorded Payers Encounter Date Sequence Insurance Name Policy Number Policy Guillermo Covered Member ID Guillermo Member ID Guarantor Name 01/07/2024 1 [facility]MEDICARE [place]PLACEMENT PPO) [id number] Reena A Greemore [id number] Reena Greemore 01/07/2024 2 [place] [facility] Reena A Greemore [id number] Reena Greemore 04/07/2024 1 [facility]ACEMENT PPO) [id number] Reena A Greemore [id number] Reena Greemore 04/07/2024 2 [place] Reena A Greemore [id number] Reena Greemore 06/23/2024 1 [facility]AC[place] PPO) [id number] Reena A Greemore [id number] Reena Greemore 06/23/2024 2 [place] [facility] Reena A Greemore [id number] Reena Greemore 11/08/2024 1 [facility]ACEMENT PPO) [id number] Reena A Greemore [id number] Reena Greemore 11/08/2024 2 [place] Reena A Greemore [id number] Reena Greemore 01/11/2025 1 [facility]ACEMENT PPO) [id number] Reena A Greemore [id number] Reena Greemore 01/11/2025 2 [place] [facility] Reena A Greemore [id number] Reena Greemore Notes Date Note Type Note Provider Name and Address Organization Details Recorded Time 01/07/2024 text/html Here for routine follow up. She had labs drawn which show worsening hyperlipidemia. She tells me she has never taken meds for cholesterol but is not opposed to it. She reports she is getting winded with climbing stairs and at night she has occasional heart palpitations. No chest pains. She would like to have another stress test, last was many years ago. She had back surgery in September which fixed a large amount of her pain but still has chronic pain at the location of the hardware in the back. Leigh Alfred, NEDA [address] [facility] [address], [place], [address], [facility] 01/07/2024 11:05:30 04/07/2024 text/html Presents to Renato for follow up form cardiology appointment. 1. Review labs- All other values within normal limits.- triglycerides 162- eGFR: 42, Cr 1.27---- Denies decrease urination, blood in urine. 2. Medication change with Cardiology- Just started losartan this week, stayed on lisinopril until starting losartan (04/05).- Cough has not gone away.- Denies side effects. Leigh Alfred NP [address] [address], [place], [address], [facility] 04/07/2024 13:24:02 06/23/2024 text/html Patient had nurs ing home visit, the nurse recommended follow up with PCP due to PAD screening revealing left side borderline 0.96, right side 1.07 normal. Denies pain, numbness, changes of color in the left foot or cool extremities. No hair loss, hyperpigmentation or ulcerations. Denies pain in calf or lower leg with exercise. Admits to occasional burning sensation on the lateral aspect of the left leg. Insomnia for the a couple years now. Trouble falling asleep. Melatonin is not helpful. Leigh Alfred NP [address] [address], [place], [address], formerly [facility] 06/23/2024 10:30:46 11/08/2024 text/html Here for routine follow up. She did not get her labs done yet. She has had a cough and congestion for the past 10 days. She has not had a fever. She does note some mild shortness of breath. Leigh Alfred NP [address] [address], [place], [address], [facility] 11/08/2024 15:00:15 01/11/2025 text/html Here in follow u p. She has a wellness check with her insurance plan. She had a PA do this check this time and she talked to him about her legs because they are somewhat swollen. She did see a cord splicer in 2023 and he lowered her diuretic [...] it is proportionate. Leigh Alfred NP [address] [facility] [address], [place], [address], [place] [facility] 01/11/2025 09:54:04 OBGyn Episode No OBEpisode recorded.
--- OUTSIDE RECORDS SUMMARY | 2025-01-13 14:54 | XMS_ITS | Clinical Summary ---
Author Organization [facility] Facility Address [address] [address] Care Team Providers Care Tipple Operator Name Role Phone Mariola Mckeon DNP Primary Care Provider [phone] Social History Tobacco Use Types Packs/Day Years Used Date Smoking Tobacco: Never Assessed Comments Unknown Sex and Gender Information Value Date Recorded Sex Assigned at Not on file Legal Sex Female 11:38 AM EST Gender Identity Not on file Sexual Orientation Not on file Plan of Treatment Health Maintenance Due Date Last Done Comments Pneumococcal Vaccine: 50+ Ye ars (1 of - PCV) 1989 Influenza Vaccine (Season Ended) 2025 Hepatitis B Vaccine Aged Out No longe r eligible based on patient's age to complete this topic Insurance Medicare [facility] Care Teams Tipple Operator Relationship Specialty Start Date End Date Mariola Mckeon DNP [address] [place] [id number] PCP - General Nurse Practitioner 09/21/21
== END 2025-01-13 15:37 | disposition home or self-care (01) ==
LOC: HO.HNS 14:13
PROVIDERS: PCP Nurse Practitioner Gerontology; Visit Provider Physician Assistant
DX: M79.18 Myalgia, other site (principal)
CPT/HCPCS: 99213

== ENCOUNTER → 2025-01-13 14:12 | Outpatient (BNVA) | payer MEDICARE, MEDICAID, SELFPAY | PROVIDERS: PCP Nurse Practitioner Gerontology; Visit Provider Physician Assistant | DX: M79.18 Myalgia, other site (principal) | CPT/HCPCS: 99212 ==